=== PATIENT | male | born 1990 | race Caucasian/White ===

== ENCOUNTER 2019-02-15 11:39 | Emergency (ER) | payer BC, MEDICAID, OTHER ==
[~2019-02-15] VITALS: Ht 175.3 cm; Wt 77.1 kg
[~2019-02-15 11:39] MED LIST: BACL10TA PO; DIAZ10TA3 PO; HYDR-690 PO
--- OUTSIDE RECORDS SUMMARY | 2019-02-15 11:45 | XMS REPORT ---
Author Author TALHA FINNEGAN Organization [facility] Address [address] [place] [address] Care Team Providers Care Geometrician Name Role Phone TALHA FINNEGAN Unavailable PROBLEMS Type Condition ICD9-CM Code FKK65-CL Code Onset Dates Condition Status SNOMED Code Problem Anxiety F41.9 Active 28795261 Problem Mild persistent asthma without complication J45.30 Active 673154529 Problem Idiopathic chronic pancreatitis K86.1 Active 965640954 ALLERGIES No Information ENCOUNTERS Encounter Location Date Diagnosis [facility] [address] [address] Jul, [facility] [address] [address] Jul, [facility] [id number] [place] [address] Jul, [facility] [id number] [place] [address] Jul, Idiopathic chronic pancreatitis K86.1 [facility] [id number] [place] [address] Jul, [facility] [id number] [place] [address] Jun, [facility] [id number] [place] [address] Jun, Controlled substance agreement signed Z79.899 and Idiopathic chronic pancreatitis K86.1 [facility] [id number] [place] [address] Jun, Controlled substance agreement signed Z79.899 [facility] [address] [address] Jun, [facility] [address] [address] Jun, [facility] [address] [address] May, [facility] [address] [address] May, Idiopathic chronic pancreatitis K86.1 [facility] [address] [address] May, [facility] [address] [place] [address] May, [facility] [address] [place] [address] Apr, [facility] [address] [place] [address] Apr, [facility] [address] [address] Mar, [facility] [address] [place] [address] Mar, [facility] [id number] [address] Mar, Idiopathic chronic pancreatitis K86.1 ; Mild persistent asthma without complication J45.30 and Anxiety F41.9 [facility] [address] [place] [address] Jun, Encounter for immunization Z23 IMMUNIZATIONS No Known Immunizations SOCIAL HISTORY Never Assessed REASON FOR VISIT Controlled Med Refill 07/30 PLAN OF CARE VITAL SIGNS MEDICATIONS Medication Instructions Dosage Frequency Start Date End Date Duration Status Oxycodone HCl 10 mg Orally 3 times a day 1 tablet as needed Jul, 28 days Active RESULTS No Results PROCEDURES No Known procedures INSTRUCTIONS MEDICATIONS ADMINISTERED No Known Medications MEDICAL (GENERAL) HISTORY Type Description Date Medical History Asthma Medical History GI Spincter dysfunction Medical History Irritable Bowel Syndrome Medical History gilbert syndrome Medical History Chronic Nausea Medical History Chronic abdominal pain Medical History H-Pylori Medical History Chicken pox (in the past) Surgical History Galbladder 2009 Surgical History wisdom teeth 2012 Surgical History Several Colonoscopys Hospitalization History Pancreatitis 05/18/2018
--- OUTSIDE RECORDS SUMMARY | 2019-02-15 11:45 | XMS REPORT ---
Author Author TALHA FINNEGAN [facility] Address [address] [place] [address] Care Team Providers Care Cinder Crane Operator Name Role Phone TALHA FINNEGAN Unavailable PROBLEMS Type Condition ICD9-CM Code DGW51-TL Code Onset Dates Condition Status SNOMED Code Problem Controlled substance agreement signed Z79.899 Active 028276011 Problem Anxiety F41.9 Active 56287208 Problem Mild persistent asthma without complication J45.30 Active 511816897 ALLERGIES No Information ENCOUNTERS Encounter Location Date Diagnosis [place] [id number] [place] [address] Jul, Idiopathic chronic pancreatitis K86.1 and Controlled substance agreement signed Z79.899 [facility] [id number] [place] [address] Jul, [facility] [address] [address] Jul, [facility] [id number] [place] [address] Jul, Idiopathic chronic pancreatitis K86.1 [facility] [id number] [place] [address] Jul, [facility] [id number] [place] [address] Jun, [facility] [address] [address] Jun, Controlled substance agreement signed Z79.899 and Idiopathic chronic pancreatitis K86.1 [facility] [id number] [place] [address] Jun, Controlled substance agreement signed Z79.899 [facility] [address], [place] [address] Jun, [facility] [address], [place] [address] Jun, [facility] [address], [place] [address] May, [facility] [address], [place] [address] May, Idiopathic chronic pancreatitis K86.1 [facility] [address], [place] [address] May, [facility] [address], [place] [address] May, [facility] [address], [place] [address] Apr, [facility] [address], [place] [address] Apr, [facility] [address], [place] [address] Mar, [facility] [address], [place] [address] Mar, [facility] [id number] [address] Mar, Idiopathic chronic pancreatitis K86.1 ; Mild persistent asthma without complication J45.30 and Anxiety F41.9 [facility] [place] [address] [place] [address] 11 Jun, 2017 Encounter for immunization Z23 IMMUNIZATIONS No Known Immunizations SOCIAL HISTORY Never Assessed REASON FOR VISIT Prior Authorization Request PLAN OF CARE VITAL SIGNS MEDICATIONS Unknown Medications RESULTS No Results PROCEDURES No Known procedures INSTRUCTIONS MEDICATIONS ADMINISTERED No Known Medications MEDICAL (GENERAL) HISTORY Type Description Date Medical History Asthma Medical History GI Spincter dysfunction Medical History Irritable Bowel Syndrome Medical History gilbert syndrome Medical History Chronic Nausea Medical History Chronic abdominal pain Medical History H-Pylori Medical History Chicken pox (in the past) Surgical History Galbladder 2009 Surgical History wisdom teeth 2011 Surgical History Several Colonoscopys Hospitalization History Pancreatitis 05/18/2018
--- OUTSIDE RECORDS SUMMARY | 2019-02-15 11:45 | XMS REPORT ---
Author Author TALHA FINNEGAN [facility] Address [address] [place] [address] Care Team Providers Care Timber Cutter Name Role Phone TALHA FINNEGAN Unavailable PROBLEMS Type Condition ICD9-CM Code KVH82-DC Code Onset Dates Condition Status SNOMED Code Problem Controlled substance agreement signed Z79.899 Active 051344015 Problem Anxiety F41.9 Active 06850798 Problem Mild persistent asthma without complication J45.30 Active 825935297 ALLERGIES No Information ENCOUNTERS Encounter Location Date Diagnosis [facility] [id number] [place] [address] Aug, Idiopathic chronic pancreatitis K86.1 [facility] [id number] [place] [address] Aug, [facility] [id number] [place] [address] Jul, Idiopathic chronic pancreatitis K86.1 and Controlled substance agreement signed Z79.899 [facility] [id number] [place] [address] Jul, [facility] [id number] [place] [address] Jul, [facility] [id number] [place] [address] Jul, Idiopathic chronic pancreatitis K86.1 [facility] [id number] [place] [address] Jul, [facility] [id number] [place] [address] Jun, [facility] [id number] [place] [address] Jun, Controlled substance agreement signed Z79.899 and Idiopathic chronic pancreatitis K86.1 [facility] [address], [place] [address] 15 Jun, 2018 Controlled substance agreement signed Z79.899 [facility] [id number], [place] [address] Jun, [facility] [address], [place] [address] Jun, [facility] [address] [facility] [id number] [address] 14 May, 2018 [facility] [id number], [place] [address] 13 May, 2018 Idiopathic chronic pancreatitis K86.1 [facility] [address], [place] [address] 07 May, 2018 [facility] [address], [place] [address] May, [facility] [address], [place] [address] Apr, [facility] [address], [place] [address] Apr, [facility] [id number], [place] [address] Mar, [facility] [id number], [place] [address] Mar, [facility] [id number], [place] [address] Mar, Idiopathic chronic pancreatitis K86.1 ; Mild persistent asthma without complication J45.30 and Anxiety F41.9 [facility] [place] [address] [place] [address] 11 Jun, 2017 Encounter for immunization Z23 IMMUNIZATIONS No Known Immunizations SOCIAL HISTORY Never Assessed REASON FOR VISIT Controlled refill 12-10 PLAN OF CARE VITAL SIGNS MEDICATIONS Medication Instructions Dosage Frequency Start Date End Date Duration Status Oxycodone HCl 10 mg Orally 3 times a day 1 tablet as needed 8h Aug, 28 days Active RESULTS No Results PROCEDURES No Known procedures INSTRUCTIONS MEDICATIONS ADMINISTERED No Known Medications MEDICAL (GENERAL) HISTORY Type Description Date Medical History Asthma Medical History GI Spincter dysfunction Medical History Irritable Bowel Syndrome Medical History gilbert syndrome Medical History Chronic Nausea Medical History Chronic abdominal pain Medical History H-Pylori Medical History Chicken pox (in the past) Surgical History Galbladder 2008 Surgical History wisdom teeth 2011 Surgical History Several Colonoscopys Hospitalization History Pancreatitis 05/18/2018
--- OUTSIDE RECORDS SUMMARY | 2019-02-15 11:45 | XMS REPORT ---
Author Author TALHA FINNEGAN Organization [facility] Address [address] [place] [address] Care Team Providers Care Conveyor Technician Name Role Phone TALHA FINNEGAN Unavailable PROBLEMS Type Condition ICD9-CM Code AHL29-MA Code Onset Dates Condition Status SNOMED Code Problem Anxiety F41.9 Active 47886450 Problem Controlled substance agreement signed Z79.899 Active 925490987 Problem Mild persistent asthma without complication J45.30 Active 019338162 ALLERGIES No Information ENCOUNTERS Encounter Location Date Diagnosis [place] [address] [address] January, [facility] [address] [address] Nov, [facility] [id number] [place] [address] Nov, [facility] [id number] [place] [address] Nov, [facility] [id number] [place] [address] Nov, [address] [address] Nov, Pain of upper abdomen R10.10 and Otalgia of left ear H92.02 [facility] [id number] [place] [address] Nov, [facility] [place] [address] [place] [address] Nov, Idiopathic chronic pancreatitis K86.1 [facility] [id number] [place] [address] Oct, [facility] [id number], [place] [address] Oct, [facility] [address] [facility] [id number] [address] Oct, [facility] [address] [facility] [id number], [place] [address] Oct, [facility] [address], [place] [address] Sep, Idiopathic chronic pancreatitis K86.1 [facility] [address] [facility] [id number] [place] [address] Aug, Idiopathic chronic pancreatitis K86.1 [facility] [address], [place] [address] Aug, [facility] [address], [place] [address] Jul, Idiopathic chronic pancreatitis K86.1 and Controlled substance agreement signed Z79.899 [facility] [id number], [place] [address] Jul, [facility] [address], [place] [address] Jul, [facility] [id number], [place] [address] Jul, Idiopathic chronic pancreatitis K86.1 [facility] [id number], [place] [address] Jul, [facility] [id number], [place] [address] Jun, [facility] [id number], [place] [address] Jun, Controlled substance agreement signed Z79.899 and Idiopathic chronic pancreatitis K86.1 [facility] [id number], [place] [address] Jun, Controlled substance agreement signed Z79.899 [facility] [address] [place] [address] Jun, [facility] [id number] [place] [address] Jun, [facility] [id number] [place] [address] May, [facility] [id number] [place] [address] May, Idiopathic chronic pancreatitis K86.1 [facility] [id number] [place] [address] May, [facility] [id number] [place] [address] May, [facility] [id number] [place] [address] Apr, [facility] [id number] [place] [address] Apr, [facility] [id number] [place] [address] Mar, [facility] [id number] [place] [address] Mar, [facility] [id number] [place] [address] Mar, Idiopathic chronic pancreatitis K86.1 ; Mild persistent asthma without complication J45.30 and Anxiety F41.9 [facility] [place] [address] [place] [address] Jun, Encounter for immunization Z23 IMMUNIZATIONS No Known Immunizations SOCIAL HISTORY Never Assessed REASON FOR VISIT controlled refill request PLAN OF CARE VITAL SIGNS MEDICATIONS Medication Instructions Dosage Frequency Start Date End Date Duration Status Diazepam 10 mg Orally q 4-6 hr prn abd spasm 1 tab 14 days Active RESULTS No Results PROCEDURES No [...]
--- OUTSIDE RECORDS SUMMARY | 2019-02-15 11:45 | XMS REPORT ---
Author Author TALHA FINNEGAN [facility] Address [address] [place] [address] Care Team Providers Care Glove Former Name Role Phone TALHA FINNEGAN Unavailable PROBLEMS Type Condition ICD9-CM Code FMN34-LW Code Onset Dates Condition Status SNOMED Code Problem Controlled substance agreement signed Z79.899 Active 088940016 Problem Anxiety F41.9 Active 74111840 Problem Mild persistent asthma without complication J45.30 Active 035257279 ALLERGIES No Information ENCOUNTERS Encounter Location Date Diagnosis [place] [id number] [place] [address] Jul, Idiopathic chronic pancreatitis K86.1 and Controlled substance agreement signed Z79.899 [facility] [id number] [place] [address] Jul, [facility] [address] [address] Jul, [facility] [id number] [place] [address] Jul, Idiopathic chronic pancreatitis K86.1 [facility] [id number] [place] [address] Jul, [facility] [id number] [place] [address] Jun, [facility] [address] [address] Jun, Controlled substance agreement signed Z79.899 and Idiopathic chronic pancreatitis K86.1 [facility] [id number] [place] [address] Jun, Controlled substance agreement signed Z79.899 [facility] [address], [place] [address] Jun, [facility] [address], [place] [address] Jun, [facility] [address], [place] [address] May, [facility] [id number] [place] [address] May, Idiopathic chronic pancreatitis K86.1 [facility] [address], [place] [address] May, [facility] [id number] [place] [address] May, [facility] [id number] [place] [address] Apr, [facility] [id number] [place] [address] Apr, [facility] [address], [place] [address] Mar, [facility] [id number] [place] [address] Mar, [facility] [address], [place] [address] Mar, Idiopathic chronic pancreatitis K86.1 ; Mild persistent asthma without complication J45.30 and Anxiety F41.9 [facility] [place] [address] [place] [address] Jun, Encounter for immunization Z23 IMMUNIZATIONS No Known Immunizations SOCIAL HISTORY Never Assessed REASON FOR VISIT Pain management (chronic)- Alfonso CARRILLO, drug screen done in visit - Alfonso CARRILLO PLAN OF CARE Activity Details Follow Up 3 Months Reason: VITAL SIGNS Height 69 in 2018-08-16 Weight 174.4 lbs 2018-08-16 Temperature 97.7 degrees Fahrenheit 2018-08-16 Heart Rate 127 bpm 2018-08-16 Respiratory Rate 20 2018-08-16 BMI 25.75 kg/m2 2018-08-16 Blood pressure systolic 130 mmHg 2018-08-16 Blood pressure diastolic 84 mmHg 2018-08-16 MEDICATIONS Medication Instructions Dosage Frequency Start Date End Date Duration Status Diazepam 10 mg Orally q 4-6 hr prn abd spasm 1 tab 14 days Active Amitriptyline HCl 100 MG Active Ondansetron 4 MG Orally every 4-6 hours as needed 1 tablet on the tongue and allow to dissolve as needed 7 Active Oxycodone HCl 10 mg Orally 3 times a day 1 tablet as needed 8h 12 Jul, 2018 28 days Active Famotidine 10 MG Active Hyoscyamine Sulfate 0.125 MG/ML Active ProAir HFA 108 (90 Base) MCG/ACT Active Cetirizine HCl 10 MG 1 tablet Active Sucralfate 1 GM Orally 4 times a day 1 tablet 6h 90 days Active Ondansetron 8 MG Active Lomotil 2.5-0.025 MG Orally Four times a day 1 tablet as needed 6h Apr, Aug, 30 days Active Fentanyl 50 MCG/HR Transdermal Every 48 hr 1 patch Jul, Active Advair Diskus 250-50 MCG/DOSE Active Promethazine HCl Active RESULTS Name Result Date Reference Range URINE DRUG SCREEN (IN HOUSE) 2018-08-16 Lot # [id number] Exp date 11/2019 Control positive COCAINE neg AMPH neg MTD neg THC neg OPIATE neg BENZO positive PCP neg BAR neg OXY positive MAMP neg BUP neg MDMA neg TCA neg PROCEDURES Procedure Date Ordered Result Body Site DRUG TEST PRSMV DIR OPT OBS Aug 16, 2018 INSTRUCTIONS MEDICATIONS ADMINISTERED No Known Medications MEDICAL [...]
--- OUTSIDE RECORDS SUMMARY | 2019-02-15 11:45 | XMS REPORT ---
Author Author TALHA FINNEGAN [facility] Address [address] [place] [address] Care Team Providers Care Supervisor Microwave Name Role Phone TALHA FINNEGAN Unavailable PROBLEMS Type Condition ICD9-CM Code RMV14-BK Code Onset Dates Condition Status SNOMED Code Problem Controlled substance agreement signed Z79.899 Active 159348396 Problem Anxiety F41.9 Active 63397010 Problem Mild persistent asthma without complication J45.30 Active 406603620 ALLERGIES No Information ENCOUNTERS Encounter Location Date Diagnosis [facility] [id number] [place] [address] Aug, Idiopathic chronic pancreatitis K86.1 [facility] [id number] [place] [address] Aug, [facility] [id number] [place] [address] Jul, Idiopathic chronic pancreatitis K86.1 and Controlled substance agreement signed Z79.899 [facility] [id number] [place] [address] Jul, [facility] [id number] [place] [address] Jul, [facility] [id number] [place] [address] Jul, Idiopathic chronic pancreatitis K86.1 [facility] [id number] [place] [address] Jul, [facility] [id number] [place] [address] Jun, [facility] [id number] [place] [address] Jun, Controlled substance agreement signed Z79.899 and Idiopathic chronic pancreatitis K86.1 [facility] [address] [address] 15 Jun, 2018 Controlled substance agreement signed Z79.899 [facility] [id number] [address] Jun, [facility] [address] [address] Jun, [facility] [address] [facility] [id number] [address] 14 May, 2018 [facility] [address] [address] 13 May, 2018 Idiopathic chronic pancreatitis K86.1 [facility] [address] [address] 07 May, 2018 [facility] [address] [address] May, [facility] [address] [address] Apr, [facility] [address] [address] Apr, [facility] [id number] [address] Mar, [facility] [id number] [address] Mar, [facility] [id number] [address] Mar, Idiopathic chronic pancreatitis K86.1 ; Mild persistent asthma without complication J45.30 and Anxiety F41.9 [facility] [place] [address] [place] [address] 11 Jun, 2017 Encounter for immunization Z23 IMMUNIZATIONS No Known Immunizations SOCIAL HISTORY Never Assessed REASON FOR VISIT Controlled Med Refill 08/27 PLAN OF CARE VITAL SIGNS MEDICATIONS Medication Instructions Dosage Frequency Start Date End Date Duration Status Diazepam 10 mg Orally q 4-6 hr prn abd spasm 1 tab 14 days Active Fentanyl 50 MCG/HR Transdermal Every 48 hr 1 patch Aug, Active RESULTS No Results PROCEDURES No Known [...]
--- OUTSIDE RECORDS SUMMARY | 2019-02-15 11:46 | XMS REPORT ---
Author Author TALHA FINNEGAN Organization [facility] Address [address] [place] [address] Care Team Providers Care Sports Statistician Name Role Phone TALHA FINNEGAN Unavailable PROBLEMS Type Condition ICD9-CM Code LNR40-EG Code Onset Dates Condition Status SNOMED Code Problem Anxiety F41.9 Active 96107400 Problem Mild persistent asthma without complication J45.30 Active 425620267 Problem Idiopathic chronic pancreatitis K86.1 Active 989561417 ALLERGIES No Information ENCOUNTERS Encounter Location Date Diagnosis [facility] [id number] [place] [address] Jul, [facility] [address] [address] Jul, [facility] [id number] [place] [address] Jul, Idiopathic chronic pancreatitis K86.1 [facility] [id number] [place] [address] Jul, [facility] [id number] [place] [address] Jun, [facility] [id number] [place] [address] Jun, Controlled substance agreement signed Z79.899 and Idiopathic chronic pancreatitis K86.1 [facility] [id number] [place] [address] Jun, Controlled substance agreement signed Z79.899 [facility] [address] [place] [address] Jun, [facility] [id number] [place] [address] Jun, [facility] [id number] [address] 14 May, 2018 [facility] [address] [address] May, Idiopathic chronic pancreatitis K86.1 [facility] [address] [address] May, [facility] [address] [address] May, [facility] [address] [place] [address] Apr, [facility] [address] [place] [address] Apr, [facility] [address] [place] [address] Mar, [facility] [address] [address] Mar, [facility] [address] [address] Mar, Idiopathic chronic pancreatitis K86.1 ; Mild persistent asthma without complication J45.30 and Anxiety F41.9 [facility] [place] [address] [place] [address] Jun, Encounter for immunization Z23 IMMUNIZATIONS No Known Immunizations SOCIAL HISTORY Never Assessed REASON FOR VISIT Medication question PLAN OF CARE VITAL SIGNS MEDICATIONS Medication [...]
--- OUTSIDE RECORDS SUMMARY | 2019-02-15 11:46 | XMS REPORT ---
Author Author TALHA FINNEGAN Organization [facility] Address [address] [place] [address] Care Team Providers Care Attendant Honor Bar Name Role Phone TALHA FINNEGAN Unavailable PROBLEMS Type Condition ICD9-CM Code IOF37-VF Code Onset Dates Condition Status SNOMED Code Problem Anxiety F41.9 Active 35549470 Problem Mild persistent asthma without complication J45.30 Active 542426021 Problem Idiopathic chronic pancreatitis K86.1 Active 228664177 ALLERGIES No Information ENCOUNTERS Encounter Location Date Diagnosis [facility] [id number] [place] [address] Jul, [facility] [id number] [place] [address] Jul, [facility] [id number] [place] [address] Jun, [facility] [id number] [place] [address] Jun, Controlled substance agreement signed Z79.899 and Idiopathic chronic pancreatitis K86.1 [facility] [address] [place] [address] Jun, Controlled substance agreement signed Z79.899 [facility] [address] [place] [address] Jun, [facility] [id number] [place] [address] Jun, [facility] [id number] [place] [address] 14 May, 2018 [facility] [id number] [place] [address] May, Idiopathic chronic pancreatitis K86.1 [facility] [address] [facility] [id number] [address] May, [facility] [address] [facility] [id number] [address] May, [facility] [id number] [address] Apr, [facility] [id number] [address] Apr, [facility] [id number] [address] Mar, [facility] [id number] [address] Mar, [facility] [id number] [address] Mar, Idiopathic chronic pancreatitis K86.1 ; Mild persistent asthma without complication J45.30 and Anxiety F41.9 [facility] [place] [address] [place] [address] Jun, Encounter for immunization Z23 IMMUNIZATIONS No Known Immunizations SOCIAL HISTORY Never Assessed REASON FOR VISIT Controlled Med Refill PLAN OF CARE VITAL SIGNS MEDICATIONS Medication Instructions Dosage Frequency Start Date End Date Duration Status Fentanyl 50 MCG/HR Transdermal Every 48 hr 1 patch Jul, Active RESULTS No Results PROCEDURES No Known [...]
--- OUTSIDE RECORDS SUMMARY | 2019-02-15 11:46 | XMS REPORT ---
Author Author TALHA FINNEGAN [facility] Address [address] [place] [address] Care Team Providers Care Tacker Elastic Band Name Role Phone TALHA FINNEGAN Unavailable PROBLEMS Type Condition ICD9-CM Code EYE95-PE Code Onset Dates Condition Status SNOMED Code Problem Anxiety F41.9 Active 20350089 Problem Mild persistent asthma without complication J45.30 Active 054264912 Problem Idiopathic chronic pancreatitis K86.1 Active 940648510 ALLERGIES No Information ENCOUNTERS Encounter Location Date Diagnosis [facility] [id number] [place] [address] Jun, [facility] [id number] [place] [address] 14 May, 2018 [facility] [id number] [place] [address] 13 May, 2018 Idiopathic chronic pancreatitis K86.1 [facility] [id number] [place] [address] 07 May, 2018 [facility] [id number] [place] [address] May, [facility] [id number] [place] [address] Apr, [facility] [id number] [place] [address] Apr, [facility] [id number] [place] [address] Mar, [facility] [id number] [place] [address] Mar, [facility] [id number] [place] [address] Mar, Idiopathic chronic pancreatitis K86.1 ; Mild persistent asthma without complication J45.30 and Anxiety F41.9 [facility] [place] [address] [place] [address] Jun, Encounter for immunization Z23 IMMUNIZATIONS No Known Immunizations SOCIAL HISTORY Never Assessed REASON FOR VISIT Medication refill request PLAN OF CARE VITAL SIGNS MEDICATIONS Medication Instructions Dosage Frequency Start Date End Date Duration Status Fentanyl 50 MCG/HR Transdermal Every 48 hr 1 patch Apr, Active RESULTS No Results PROCEDURES No Known [...]
--- OUTSIDE RECORDS SUMMARY | 2019-02-15 11:46 | XMS REPORT ---
Author Author TALHA FINNEGAN [facility] Address [address] [place] [address] Care Team Providers Care Escrow Processor Name Role Phone TALHA FINNEGAN Unavailable PROBLEMS Type Condition ICD9-CM Code QNY19-CS Code Onset Dates Condition Status SNOMED Code Problem Anxiety F41.9 Active 25935883 Problem Mild persistent asthma without complication J45.30 Active 867628407 Problem Idiopathic chronic pancreatitis K86.1 Active 033264465 ALLERGIES No Information ENCOUNTERS Encounter Location Date Diagnosis [facility] [id number] [place] [address] Jun, [facility] [address] [address] Jun, [facility] [id number] [place] [address] 14 May, 2018 [facility] [id number] [place] [address] 13 May, 2018 Idiopathic chronic pancreatitis K86.1 [facility] [id number] [place] [address] May, [facility] [id number] [place] [address] May, [facility] [id number] [place] [address] Apr, [facility] [id number] [place] [address] Apr, [facility] [id number] [place] [address] Mar, [facility] [id number] [place] [address] Mar, [facility] [address] [facility] [id number] [place] [address] Mar, Idiopathic chronic pancreatitis K86.1 ; Mild persistent asthma without complication J45.30 and Anxiety F41.9 [facility] [place] [address] [place] [address] Jun, Encounter for immunization Z23 IMMUNIZATIONS No Known Immunizations SOCIAL HISTORY Never Assessed REASON FOR VISIT Controlled Med Refill PLAN OF CARE VITAL SIGNS MEDICATIONS Medication Instructions Dosage Frequency Start Date End Date Duration Status Fentanyl 50 MCG/HR Transdermal Every 48 hr 1 patch 04 Jun, 2018 Active RESULTS No Results PROCEDURES No Known [...]
--- OUTSIDE RECORDS SUMMARY | 2019-02-15 11:46 | XMS REPORT ---
Author Author TALHA FINNEGAN Organization [facility] Address [address] [place] [address] Care Team Providers Care Junior Mechanical Engineer Name Role Phone TALHA FINNEGAN Unavailable PROBLEMS Type Condition ICD9-CM Code ABP95-PW Code Onset Dates Condition Status SNOMED Code Problem Anxiety F41.9 Active 49294802 Problem Mild persistent asthma without complication J45.30 Active 500462700 Problem Idiopathic chronic pancreatitis K86.1 Active 445929149 ALLERGIES No Information ENCOUNTERS Encounter Location Date Diagnosis [place] [id number] [place] [address] 16 Jun, 2018 Controlled substance agreement signed Z79.899 and Idiopathic chronic pancreatitis K86.1 [facility] [id number] [place] [address] 15 Jun, 2018 Controlled substance agreement signed Z79.899 [facility] [id number] [place] [address] 12 Jun, 2018 [facility] [id number] [place] [address] 04 Jun, 2018 [facility] [id number] [place] [address] 14 May, 2018 [facility] [id number] [place] [address] 13 May, 2018 Idiopathic chronic pancreatitis K86.1 [facility] [id number] [place] [address] 07 May, 2018 [facility] [id number] [place] [address] 04 May, 2018 [facility] [id number] [place] [address] Apr, [facility] [address] [facility] [id number], [place] [address] Apr, [facility] [address] [facility] [id number], [place] [address] Mar, [facility] [address] [facility] [id number], [place] [address] Mar, [facility] [address] [facility] [id number], [place] [address] Mar, Idiopathic chronic pancreatitis K86.1 ; Mild persistent asthma without complication J45.30 and Anxiety F41.9 [facility] [address] [place] [address] Jun, Encounter for immunization Z23 IMMUNIZATIONS No Known Immunizations SOCIAL HISTORY Never Assessed REASON FOR VISIT Controlled Med Refill PLAN OF CARE VITAL SIGNS MEDICATIONS Medication Instructions Dosage Frequency Start Date End Date Duration Status Oxycodone HCl 10 mg Orally 3 times a day 1 tablet as needed 8h 15 Jun, 2018 28 days Active RESULTS No Results PROCEDURES [...]
--- OUTSIDE RECORDS SUMMARY | 2019-02-15 11:46 | XMS REPORT ---
Author Author TALHA FINNEGAN [facility] Address [address] [place] [address] Care Team Providers Care Snack Stewardess Name Role Phone TALHA FINNEGAN Unavailable PROBLEMS Type Condition ICD9-CM Code DHE99-TI Code Onset Dates Condition Status SNOMED Code Problem Anxiety F41.9 Active 43944751 Problem Mild persistent asthma without complication J45.30 Active 045111918 Problem Idiopathic chronic pancreatitis K86.1 Active 796114336 ALLERGIES No Information ENCOUNTERS Encounter Location Date Diagnosis [facility] [id number] [place] [address] Jun, [facility] [id number] [place] [address] 14 May, 2018 [facility] [id number] [place] [address] 13 May, 2018 Idiopathic chronic pancreatitis K86.1 [facility] [id number] [place] [address] 07 May, 2018 [facility] [id number] [place] [address] May, [facility] [id number] [place] [address] Apr, [facility] [id number] [place] [address] Apr, [facility] [id number] [place] [address] Mar, [facility] [id number] [place] [address] Mar, [facility] [id number] [place] [address] Mar, Idiopathic chronic pancreatitis K86.1 ; Mild persistent asthma without complication J45.30 and Anxiety F41.9 [facility] [place] [address] [place] [address] Jun, Encounter for immunization Z23 IMMUNIZATIONS No Known Immunizations SOCIAL HISTORY Never Assessed REASON FOR VISIT Controlled Med FYI PLAN OF CARE VITAL SIGNS MEDICATIONS Unknown [...]
--- OUTSIDE RECORDS SUMMARY | 2019-02-15 11:46 | XMS REPORT ---
Author Author TALHA FINNEGAN Organization [facility] Address [address] [place] [address] Care Team Providers Care Nursing Associate Name Role Phone TALHA FINNEGAN Unavailable PROBLEMS Type Condition ICD9-CM Code NDL47-FV Code Onset Dates Condition Status SNOMED Code Problem Anxiety F41.9 Active 70754464 Problem Mild persistent asthma without complication J45.30 Active 416402094 Problem Idiopathic chronic pancreatitis K86.1 Active 571594385 ALLERGIES No Information ENCOUNTERS Encounter Location Date Diagnosis [place] [id number] [place] [address] Jul, [facility] [id number] [place] [address] Jun, [facility] [id number] [place] [address] Jun, Controlled substance agreement signed Z79.899 and Idiopathic chronic pancreatitis K86.1 [place] [address] [place] [address] 15 Jun, 2018 Controlled substance agreement signed Z79.899 [place] [id number] [place] [address] Jun, [facility] [address] [place] [address] Jun, [place] [id number] [place] [address] 14 May, 2018 [facility] [id number] [place] [address] 13 May, 2018 Idiopathic chronic pancreatitis K86.1 [facility] [id number] [place] [address] May, [facility] [address] [facility] [id number] [place] [address] May, [facility] [id number], [place] [address] Apr, [facility] [id number] [address] Apr, [facility] [id number], [place] [address] Mar, [facility] [id number] [address] Mar, [facility] [id number] [address] Mar, Idiopathic chronic pancreatitis K86.1 ; Mild persistent asthma without complication J45.30 and Anxiety F41.9 [facility] [address] [place] [address] Jun, Encounter for immunization Z23 IMMUNIZATIONS No Known Immunizations SOCIAL HISTORY Never Assessed REASON FOR VISIT medication question PLAN OF CARE VITAL SIGNS MEDICATIONS Unknown [...]
--- OUTSIDE RECORDS SUMMARY | 2019-02-15 11:46 | XMS REPORT ---
Author Author TALHA FINNEGAN Organization [facility] Address [address] [place] [address] Care Team Providers Care Labor And Delivery Nurse Name Role Phone TALHA FINNEGAN Unavailable PROBLEMS Type Condition ICD9-CM Code [id number] Code Onset Dates Condition Status SNOMED Code Problem Anxiety F41.9 Active 80012780 Problem Mild persistent asthma without complication J45.30 Active 392039839 Problem Idiopathic chronic pancreatitis K86.1 Active 163429755 ALLERGIES No Information ENCOUNTERS Encounter Location Date Diagnosis [facility] [id number] [place] [phone] Jun, [facility] [id number] [place] [address] May, Idiopathic chronic pancreatitis K86.1 [facility] [id number] [place] [phone] May, [facility] [id number] [place] [phone] May, [facility] [id number] [place] [phone] Apr, [facility] [id number] [place] [phone] Apr, [facility] [id number] [place] [address] Mar, [facility] [id number] [place] [address] Mar, [facility] [id number] [place] [address] Mar, Idiopathic chronic pancreatitis K86.1 ; Mild persistent asthma without complication J45.30 and Anxiety F41.9 [facility] [place] [address] [place] [address] 11 Jun, 2017 Encounter for immunization Z23 IMMUNIZATIONS No Known Immunizations SOCIAL HISTORY Never Assessed REASON FOR VISIT Refill request PLAN OF CARE VITAL SIGNS MEDICATIONS Medication Instructions Dosage Frequency Start Date End Date Duration Status Ondansetron 4 MG Orally every 4-6 hours as needed 1 tablet on the tongue and allow to dissolve as needed 07 days Active Lomotil 2.5-0.025 MG Orally Four times a day 1 tablet as needed 6h Apr, Aug, 30 days Active RESULTS No Results PROCEDURES No [...]
--- OUTSIDE RECORDS SUMMARY | 2019-02-15 11:46 | XMS REPORT ---
Author Author TALHA FINNEGAN [facility] Address [address] [place] [address] Care Team Providers Care Ceiling Installer Name Role Phone TALHA FINNEGAN Unavailable PROBLEMS Type Condition ICD9-CM Code XIK16-MU Code Onset Dates Condition Status SNOMED Code Problem Anxiety F41.9 Active 32127066 Problem Mild persistent asthma without complication J45.30 Active 680650064 Problem Idiopathic chronic pancreatitis K86.1 Active 050761776 ALLERGIES No Information ENCOUNTERS Encounter Location Date Diagnosis [facility] [id number] [place] [phone] Jun, [facility] [id number] [place] [address] 14 May, 2018 [facility] [id number] [place] [phone] 13 May, 2018 Idiopathic chronic pancreatitis K86.1 [facility] [id number] [place] [phone] 07 May, 2018 [facility] [id number] [place] [phone] May, [facility] [id number] [place] [phone] Apr, [facility] [id number] [place] [phone] Apr, [facility] [id number] [place] [phone] Mar, [facility] [id number] [place] [phone] Mar, [facility] [id number] [place] [address] Mar, Idiopathic chronic pancreatitis K86.1 ; Mild persistent asthma without complication J45.30 and Anxiety F41.9 [facility] [place] [address] [place] [address] Jun, Encounter for immunization Z23 IMMUNIZATIONS No Known Immunizations SOCIAL HISTORY Never Assessed REASON FOR VISIT Controlled Med Refill 05/22 PLAN OF CARE VITAL SIGNS MEDICATIONS Medication Instructions Dosage Frequency Start Date End Date Duration Status Fentanyl 50 MCG/HR Transdermal Every 48 hr 1 patch May, Active Oxycodone-Acetaminophen 10-325 MG Orally 3 times a day 1 tablet as needed 8h May, Active RESULTS No Results PROCEDURES No Known [...]
--- OUTSIDE RECORDS SUMMARY | 2019-02-15 11:46 | XMS REPORT ---
Author Author TALHA FINNEGAN [facility] Address [address] [place] [address] Care Team Providers Care Pastrycook'S Assistant Name Role Phone TALHA FINNEGAN Unavailable PROBLEMS Type Condition ICD9-CM Code [id number] Code Onset Dates Condition Status SNOMED Code Problem Anxiety F41.9 Active 13466371 Problem Mild persistent asthma without complication J45.30 Active 399035469 Problem Idiopathic chronic pancreatitis K86.1 Active 453023901 ALLERGIES No Information ENCOUNTERS Encounter Location Date Diagnosis [facility] [id number] [place] [phone] Jun, [facility] [id number] [place] [phone] 14 May, 2018 [facility] [id number] [place] [address] 13 May, 2018 Idiopathic chronic pancreatitis K86.1 [facility] [id number] [place] [phone] 07 May, 2018 [facility] [id number] [place] [phone] May, [facility] [id number] [place] [phone] Apr, [facility] [id number] [place] [address] Apr, [facility] [id number] [place] [address] Mar, [facility] [id number] [place] [address] Mar, [facility] [id number] [place] [address] Mar, Idiopathic chronic pancreatitis K86.1 ; Mild persistent asthma without complication J45.30 and Anxiety F41.9 [facility] [address] [place] [address] Jun, Encounter for immunization Z23 IMMUNIZATIONS No Known Immunizations SOCIAL HISTORY Never Assessed REASON FOR VISIT refill request PLAN OF CARE VITAL SIGNS MEDICATIONS Medication Instructions Dosage Frequency Start Date End Date Duration Status Oxycodone-Acetaminophen 10-325 MG Orally 3 times a day 1 tablet as needed 8h Apr, Active RESULTS No Results PROCEDURES No [...]
--- OUTSIDE RECORDS SUMMARY | 2019-02-15 11:46 | XMS REPORT ---
Author Author TALHA FINNEGAN Organization [facility] Address [address] [place] [address] Care Team Providers Care Construction Cost Estimator Name Role Phone TALHA FINNEGAN Unavailable PROBLEMS Type Condition ICD9-CM Code HLQ68-QA Code Onset Dates Condition Status SNOMED Code Problem Anxiety F41.9 Active 01270924 Problem Mild persistent asthma without complication J45.30 Active 825163110 Problem Idiopathic chronic pancreatitis K86.1 Active 067228889 ALLERGIES Substance Reaction Event Type Date Status Compazine Unknown Drug Allergy May, Active ENCOUNTERS Encounter Location Date Diagnosis [facility] [id number] [place] [phone] Jun, [facility] [address] [place] [phone] 14 May, 2018 [facility] [id number] [place] [address] May, Idiopathic chronic pancreatitis K86.1 [facility] [id number] [address] May, [facility] [id number] [place] [phone] May, [facility] [id number] [place] [phone] Apr, [facility] [id number] [place] [phone] Apr, [facility] [id number] [place] [phone] Mar, [facility] [id number] [place] [address] Mar, [facility] [address] [facility] [id number] [place] [address] Mar, Idiopathic chronic pancreatitis K86.1 ; Mild persistent asthma without complication J45.30 and Anxiety F41.9 [facility] [address] [place] [address] Jun, Encounter for immunization Z23 IMMUNIZATIONS No Known Immunizations SOCIAL HISTORY Never Assessed REASON FOR VISIT Hospital f/u pancreatitis at [facility] in [facility]. NICKOLAS Carvalho PLAN OF CARE Activity Details Follow Up 3 Months Reason: VITAL SIGNS MEDICATIONS Medication Instructions Dosage Frequency Start Date End Date Duration Status Amitriptyline HCl 100 MG Active Ondansetron 4 MG Orally every 4-6 hours as needed 1 tablet on the tongue and allow to dissolve as needed 7 days Active ProAir HFA 108 (90 Base) MCG/ACT Active Famotidine 10 MG Active Advair Diskus 250-50 MCG/DOSE Active Promethazine HCl Active Diazepam 10 MG Orally q 4-6 hr prn abd spasm 1 tab Active Hyoscyamine Sulfate 0.125 MG/ML Active Fentanyl 50 MCG/HR Transdermal Every 48 hr 1 patch May, Active Oxycodone-Acetaminophen 10-325 MG Orally 3 times a day 1 tablet as needed 8h May, Active Sucralfate 1 GM Orally 4 times a day 1 tablet 6h 90 days Active Maalox Advanced Active Ondansetron 8 MG Active Lomotil 2.5-0.025 MG Orally Four times a day 1 tablet as needed 6h Apr, Aug, 30 days Active Cetirizine HCl 10 MG 1 tablet Active Duloxetine HCl 60 mg Orally Once a day 1 capsule 24h Active RESULTS No Results PROCEDURES No Known [...]
--- OUTSIDE RECORDS SUMMARY | 2019-02-15 11:46 | XMS REPORT ---
Author Author TALHA FINNEGAN [facility] Address [address] [place] [address] Care Team Providers Care Hydrodynamicist Name Role Phone TALHA FINNEGAN Unavailable PROBLEMS Type Condition ICD9-CM Code [id number] Code Onset Dates Condition Status SNOMED Code Problem Anxiety F41.9 Active 91653148 Problem Mild persistent asthma without complication J45.30 Active 632640140 Problem Idiopathic chronic pancreatitis K86.1 Active 889711487 ALLERGIES No Information ENCOUNTERS Encounter Location Date Diagnosis [facility] [id number] [place] [phone] Jun, [facility] [id number] [place] [address] 14 May, 2018 [facility] [id number] [place] [address] 13 May, 2018 Idiopathic chronic pancreatitis K86.1 [facility] [id number] [place] [address] 07 May, 2018 [facility] [id number] [place] [phone] May, [facility] [id number] [place] [address] Apr, [facility] [id number] [place] [phone] Apr, [facility] [id number] [place] [address] Mar, [facility] [id number] [place] [address] Mar, [facility] [id number] [place] [address] Mar, Idiopathic chronic pancreatitis K86.1 ; Mild persistent asthma without complication J45.30 and Anxiety F41.9 [facility] [place] [address] [place] [address] Jun, Encounter for immunization Z23 IMMUNIZATIONS No Known Immunizations SOCIAL HISTORY Never Assessed REASON FOR VISIT Controlled Med Refill 06/01 PLAN OF CARE VITAL SIGNS MEDICATIONS Medication Instructions Dosage Frequency Start Date End Date Duration Status Oxycodone HCl 10 mg Orally 3 times a day 1 tablet as needed 8h May, Jun, 28 days Active RESULTS No Results PROCEDURES [...]
--- OUTSIDE RECORDS SUMMARY | 2019-02-15 11:47 | XMS REPORT ---
Author Author TALHA FINNEGAN [facility] Address [address] [place] [address] Care Team Providers Care Livestock Handler Name Role Phone TALHA FINNEGAN Unavailable PROBLEMS Type Condition ICD9-CM Code DIP05-PK Code Onset Dates Condition Status SNOMED Code Problem Anxiety F41.9 Active 23149729 Problem Mild persistent asthma without complication J45.30 Active 704274123 Problem Idiopathic chronic pancreatitis K86.1 Active 246453731 ALLERGIES Substance Reaction Event Type Date Status Compazine Unknown Drug Allergy Mar, Active ENCOUNTERS Encounter Location Date Diagnosis [facility] [id number] [place] [address] May, [facility] [id number] [place] [address] May, [facility] [id number] [place] [address] May, [facility] [id number] [place] [address] Apr, [facility] [id number] [place] [address] Apr, [facility] [id number] [place] [address] Mar, [facility] [id number] [place] [address] Mar, [facility] [id number] [place] [address] Mar, Idiopathic chronic pancreatitis K86.1 ; Mild persistent asthma without complication J45.30 and Anxiety F41.9 [facility] [address] [place] [address] Jun, Encounter for immunization Z23 IMMUNIZATIONS No Known Immunizations SOCIAL HISTORY Never Assessed REASON FOR VISIT Establish Care, PT would like to discuss all of his chronic health problems. PTs primary was previously Dr. Castillo in [place]. -Kenn CARRILLO , PHQ2, AUDIT C, P Adriana Jones PLAN OF CARE Activity Details Follow Up 4 Weeks Reason: VITAL SIGNS Height 69 in 2018-04-09 Weight 168.6 lbs 2018-04-09 Temperature 98.4 degrees Fahrenheit 2018-04-09 Heart Rate 111 bpm 2018-04-09 Respiratory Rate 20 2018-04-09 Oximetry 97 % 2018-04-09 BMI 24.90 kg/m2 2018-04-09 Blood pressure systolic 150 mmHg 2018-04-09 Blood pressure diastolic 90 mmHg 2018-04-09 MEDICATIONS Medication Instructions Dosage Frequency Start Date End Date Duration Status Famotidine 10 MG Active Amitriptyline HCl 50 MG Active Fentanyl 50 MCG/HR Active Diphenoxylate-Atropine 2.5-0.025 MG/5ML Active Vancocin HCl 250 MG Active Cymbalta 30 MG Active Advair Diskus 250-50 MCG/DOSE Active Diazepam 5 mg Orally 3 times a day 1 tab 8h Active ProAir HFA 108 (90 Base) MCG/ACT Active Promethazine HCl Active Hyoscyamine Sulfate 0.125 MG/ML Active Ondansetron 4 MG Active Maalox Advanced Active Alprazolam 0.5 MG 1 tablet Active Nulytely Active Duloxetine HCl 60 MG Active Cetirizine HCl 10 MG 1 tablet Active Sucralfate 1 GM Active Ondansetron 8 MG Active Amitriptyline HCl 100 MG Active Oxycodone-Acetaminophen 10-325 MG Active RESULTS No Results PROCEDURES No Known [...]
--- OUTSIDE RECORDS SUMMARY | 2019-02-15 11:47 | XMS REPORT ---
Author Author TALHA FINNEGAN [facility] Address [address] [place] [address] Care Team Providers Care Supervisor [employer] Name Role Phone TALHA FINNEGAN Unavailable PROBLEMS Type Condition ICD9-CM Code TNT35-TR Code Onset Dates Condition Status SNOMED Code Problem Anxiety F41.9 Active 77973726 Problem Mild persistent asthma without complication J45.30 Active 442520119 Problem Idiopathic chronic pancreatitis K86.1 Active 552807217 ALLERGIES No Information ENCOUNTERS Encounter Location Date Diagnosis [facility] [id number] [place] [phone] May, [facility] [address] [address] May, [facility] [id number] [place] [phone] May, [facility] [id number] [place] [phone] Apr, [facility] [id number] [place] [phone] Apr, [facility] [id number] [place] [phone] Mar, [facility] [id number] [place] [phone] Mar, [facility] [address] [address] Mar, Idiopathic chronic pancreatitis K86.1 ; Mild persistent asthma without complication J45.30 and Anxiety F41.9 [facility] [address] [place] [address] Jun, Encounter for immunization Z23 IMMUNIZATIONS No [...]
--- OUTSIDE RECORDS SUMMARY | 2019-02-15 11:47 | XMS REPORT ---
Author Author LISSETT ABREU [facility] Address [address] [place] [address] Care Team Providers Care Assistant Plant Control Operator Name Role Phone LISSETT ABREU Unavailable PROBLEMS Unknown Problems ALLERGIES No Information ENCOUNTERS Encounter Location Date Diagnosis [facility] [id number] [place] [id number] Jun, Encounter for immunization Z23 IMMUNIZATIONS No Known Immunizations SOCIAL HISTORY Never Assessed REASON FOR VISIT flu shot, Ela Duarte RN PLAN OF CARE Activity Details Follow Up prn Reason: VITAL SIGNS MEDICATIONS Unknown Medications RESULTS No Results PROCEDURES No Known procedures INSTRUCTIONS MEDICATIONS ADMINISTERED No Known Medications
[2019-02-15] MEDS ORDERED: HYDROmorphone 2 MG/ML VIAL (DILAUDID) IV ONE (12:30)
[2019-02-15] MEDS ORDERED: HALOPERIDOL 5 MG/ML (HALDOL) AMP IV ONE (12:45)
[2019-02-15] MEDS: NS IV 1000 ML 1,000 ML IV SCH ×4 (12:48→15:47)
--- NOTE | 2019-02-15 13:11 | ED Abdominal Pain ---
General Chief Complaint: Abdominal/GI Problems Stated Complaint: N&V; ABD PAIN Nursing Triage Note: Patient brought in by EMS with severe abdominal pain, nausea, and vomiting x 1 hour. Has hx of chronic pancreatitis and sphicter of Oddi dysfunction. His GI doctor is Dr Burris at . Had 10 mg morphine, 8 of zofran, and 50 mg of benadryl en route. BS was 153 for EMS. Patient is currently rating pain at 8/10. Has 50 mcg fentanyl patch on for chronic back pain. Denies alcohol or drug use. Sepsis Screen: No Definite Risk Source of Information: Patient, Family Exam Limitations: No Limitations History of Present Illness Date Seen by Provider: February 15, 2019 Time Seen by Provider: 12:15 Initial Comments This is a 28 y/o m who presents to the ED for evaluation of abdominal pain. Pt with history of chronic abdominal pain 2/2 chronic pancreatitis of unknown etiology for the past 5 years. Follows with GI at . No clear pathology of chronic pain. Is on Fentanyl patches, Oxycodone and Valium chronically for pain control. Here with increased pain for the past 2 days and intractable vomiting for the past few hours. No fever, ABD is typical, no GI bleed symptoms. Has h/o Gilbert syndrome and has chronically elevated T. Bili. S/p cholecystectomy. Pain is constant, 10/10, sharp, no aggravating/alleviating factors. Reports chronic diarrhea. Allergies and Home Medications Allergies Coded Allergies: citalopram hydrobromide (Unverified Allergy, Unknown, NAUSEA, 02/15/19) dicyclomine (Verified Allergy, Unknown, nausea and vomiting, 02/15/19) paroxetine (Verified Allergy, Unknown, nausea and vomiting, 02/15/19) prochlorperazine (Verified Allergy, Unknown, muscle pain, 02/15/19) Home Medications Baclofen 10 Mg Tablet, 1 EACH PO QID PRN, (Reported) Diazepam 10 Mg Tablet, 1 EACH PO QID, (Reported) Hydrocodone Bit/Ibuprofen 1 Tab Tablet, 1-2 EACH PO Q4H PRN, (Reported) Patient Home Medication List Home Medication List Reviewed: Yes Review of Systems Review of Systems Constitutional: No chills, No fever, No weakness EENTM: No Symptoms Reported Respiratory: Denies Cough, Denies Shortness of Air, Denies Stridor, Denies Wheezing Cardiovascular: Denies Chest Pain, Denies Palpitations, Denies Syncope Gastrointestinal: Abdominal Pain; Denies Constipated; Diarrhea, Nausea, Vomiting Genitourinary: No Symptoms Reported Musculoskeletal: No back pain, No joint pain Skin: No pruritus, No rash Psychiatric/Neurological: No Symptoms Reported Endocrine: No Symptoms Reported All Other Systems Reviewed Negative Unless Noted: Yes Past Pyibolv-Qtoced-Hpztow Hx Patient Social History Alcohol Use: Denies Use Recreational Drug Use: No 2nd Hand Smoke Exposure: No Recent Foreign Travel: No Contact w/Someone Who Travel: No Recent Infectious Disease Expo: No Recent Hopitalizations: No Physical Abuse: No Sexual Abuse: No Mistreated: No Fear: No Seasonal Allergies Seasonal Allergies: No Past Medical History Gallbladder Respiratory: Yes Asthma Cardiac: No Neurological: No Reproductive Disorders: No Genitourinary: No Gastrointestinal: Yes (IRRITABLE BOWEL; N/V; chronic pancreatitis; sphincter of Oddi dysfunction; ) Musculoskeletal: Yes Chronic Back Pain Endocrine: No HEENT: No Cancer: No Psychosocial: No Integumentary: No Blood Disorders: No Physical Exam Vital Signs Vital Signs - First Documented 02/15/19 11:40 Temp 96.4 Pulse 79 Resp 22 B/P (MAP) 138/72 (94) Pulse Ox 100 Capillary Refill : Less Than 3 Seconds Height/Weight/BMI Height: 5'9.00" Weight: 170lbs. oz. 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, no motor/sensory deficits, alert, normal mood/affect, oriented x 3 Skin: warm/dry, pallor Progress/Results/Core Measures Results/Orders Lab Results Laboratory Tests Test 02/15/19 13:09 Range/Units White Blood Count 19.2 H 4.3-11.0 10^3/uL Red Blood Count 4.86 4.35-5.85 10^6/uL Hemoglobin 14.8 13.3-17.7 G/DL Hematocrit 43 40-54 % Mean Corpuscular Volume 88 80-99 FL Mean Corpuscular Hemoglobin 30 25-34 PG Mean Corpuscular Hemoglobin Concent 35 32-36 G/DL Red Cell Distribution Width 13.1 10.0-14.5 % Platelet Count 251 130-400 10^3/uL Mean Platelet Volume 10.8 H 7.4-10.4 FL Neutrophils (%) (Auto) 90 H 42-75 % Lymphocytes (%) (Auto) 5 L 12-44 % Monocytes (%) (Auto) 5 0-12 % Eosinophils (%) (Auto) 0 0-10 % Basophils (%) (Auto) 0 0-10 % Neutrophils # (Auto) 17.3 H 1.8-7.8 X 10^3 Lymphocytes # (Auto) 1.0 1.0-4.0 X 10^3 Monocytes # (Auto) 0.9 0.0-1.0 X 10^3 Eosinophils # (Auto) 0.1 0.0-0.3 10^3/uL Basophils # (Auto) 0.0 0.0-0.1 10^3/uL Neutrophils % (Manual) 93 % Lymphocytes % (Manual) 2 % Monocytes % (Manual) 4 % Eosinophils % (Manual) 0 % Basophils % (Manual) 0 % Band Neutrophils 1 % Sodium Level 138 135-145 MMOL/L Potassium Level 3.8 3.6-5.0 MMOL/L Chloride Level 99 98-107 MMOL/L Carbon Dioxide Level 28 21-32 MMOL/L Anion Gap 11 5-14 MMOL/L Blood Urea Nitrogen 18 7-18 MG/DL Creatinine 0.97 0.60-1.30 MG/DL Estimat Glomerular Filtration Rate > 60 BUN/Creatinine Ratio 19 Glucose Level 214 H 70-105 MG/DL Calcium Level 9.2 8.5-10.1 MG/DL Corrected Calcium 8.5-10.1 MG/DL Total Bilirubin 1.0 0.1-1.0 MG/DL Aspartate Amino Transf (AST/SGOT) 22 5-34 U/L Alanine Aminotransferase (ALT/SGPT) 15 0-55 U/L Alkaline Phosphatase 81 40-136 U/L Total Protein 7.2 6.4-8.2 GM/DL Albumin 4.6 H 3.2-4.5 GM/DL Lipase 57 8-78 U/L My Orders Orders - ANNI BARRETT DO Hydromorphone Injection (Dilaudid Inject (02/15/19 12:30) Cbc And Manual Diff (02/15/19 12:19) Comprehensive Metabolic Panel (02/15/19 12:19) Lipase (02/15/19 12:19) Ekg Tracing (02/15/19 12:19) Haloperidol Injection (Haldol Injectio (02/15/19 12:45) Ns Iv 1000 Ml (Sodium Chloride 0.9%) (02/15/19 12:45) Diazepam Injection (Valium Injection) (02/15/19 14:15) Diazepam Tablet (Valium Tablet) (02/15/19 14:30) Medications Given in ED Current Medications Medications Dose Ordered Sig/Ladonna Route Start Time Stop Time Status Last Admin Dose Admin Diazepam 10 mg ONCE ONCE PO 02/15/19 14:30 02/15/19 14:31 DC 02/15/19 14:24 10 MG Haloperidol Lactate 5 mg ONCE ONCE IV 02/15/19 12:45 02/15/19 12:46 DC 02/15/19 12:48 5 MG Hydromorphone HCl 0.5 mg ONCE ONCE IV 02/15/19 12:30 02/15/19 12:31 DC 02/15/19 12:48 0.5 MG Vital Signs/I&O 02/15/19 11:40 Temp 96.4 Pulse 79 Resp 22 B/P (MAP) 138/72 (94) Pulse Ox 100 Blood Pressure Mean: 94 Progress Progress Note : Time: 15:00 Progress Note Symptoms improved but controlled enough for discharge. Elevated WBC and Glucose. Will require hospitalization for pain/symptom control. Pt is non-toxic appear ing, does not have a "surgical/acute ABD". Will allow receiving hospital to decide if they want to do imaging. Will transfer to [facility] per pt's request 2/2 continuity of care. Accepted by Dr. Yepez. Has been hemodynamically stable in the ED. Awaiting transfer. Departure Impression Primary Impression: Nausea and vomiting Additional Impressions: Pancreatitis Abdominal pain Dehydration Disposition: XFER SHT-TRM HOSP Condition: Stable Transfer Time Spoke to Accepting Phy: 15:00 ANNI BARRETT DO February 15, 2019 13:11
[2019-02-15 13:21] LABS: HEMATOCRIT 43 % (40-54); HEMOGLOBIN 14.8 G/DL (13.3-17.7); MEAN CORPUSCULAR HEMOGLOBIN 30 PG (25-34); MEAN CORPUSCULAR VOLUME 88 FL (80-99); WHITE BLOOD COUNT 19.2 10^3/uL (4.3-11.0)
[2019-02-15 13:22] LABS: BASOPHILS % (AUTO) 0 % (0-10); EOSINOPHILS % (AUTO) 0 % (0-10); LYMPHOCYTES % (AUTO) 5 % (12-44); MEAN CORPUSCULAR HGB CONC 35 G/DL (32-36); MEAN PLATELET VOLUME 10.8 FL (7.4-10.4); MONOCYTES % (AUTO) 5 % (0-12); NEUTROPHILS # (AUTO) 17.3 X 10^3 (1.8-7.8); NEUTROPHILS % (AUTO) 90 % (42-75); PLATELET COUNT 251 10^3/uL (130-400); RED CELL DISTRIBUTION WIDTH 13.1 % (10.0-14.5)
[2019-02-15 13:23] LABS: EOSINOPHILS # (AUTO) 0.1 10^3/uL (0.0-0.3); MONOCYTES # (AUTO) 0.9 X 10^3 (0.0-1.0)
[2019-02-15 13:37] LABS: BAND NEUTROPHILS 1 %; BASOPHILS % (MANUAL) 0 %; EOSINOPHILS % (MANUAL) 0 %; LYMPHOCYTES % (MANUAL) 2 %; MONOCYTES % (MANUAL) 4 %; NEUTROPHILS % (MANUAL) 93 %
[2019-02-15 13:39] LABS: SODIUM 138 MMOL/L (135-145)
[2019-02-15 13:40] LABS: ALANINE AMINOTRANSFERASE 15 U/L (0-55); ALBUMIN 4.6 GM/DL (3.2-4.5); ALKALINE PHOSPHATASE 81 U/L (40-136); BUN/CREATININE RATIO 19; CALCIUM 9.2 MG/DL (8.5-10.1); CARBON DIOXIDE 28 MMOL/L (21-32); CHLORIDE 99 MMOL/L (98-107); CREATININE SERUM 0.97 MG/DL (0.60-1.30); GFR ESTIMATED > 60; GLUCOSE 214 MG/DL (70-105); LIPASE 57 U/L (8-78); POTASSIUM 3.8 MMOL/L (3.6-5.0); TOTAL PROTEIN 7.2 GM/DL (6.4-8.2)
[2019-02-15] MEDS ORDERED: DIAZEPAM INJ 10 MG/2 ML (VALIUM) SYR IVP ONE (14:15)
[2019-02-15] MEDS ORDERED: DIAZEPAM 5 MG (VALIUM) TABLET PO ONE (14:30)
[2019-02-15] MEDS ORDERED: PROMETHAZINE INJ 25 MG/ML (PHENERGAN) AMP IVP ONE (16:15)
[2019-02-15] MEDS ORDERED: NS IV 1000 ML 1,000 ML IV SCH (16:45)
--- NOTE | 2019-02-15 17:09 | NUR ---
[facility] has accepted patient transfer to .
[2019-02-15 17:10] VITALS: BP 131/74
--- NOTE | 2019-02-15 17:27 | NUR ---
Patient transferred at this time to [facility] via [facility].
== END 2019-02-15 17:27 | disposition short-term general hospital (02) ==
LOC: EDUNIT# 11:39 → ER FS 11:41
DX: K85.90 Acute pancreatitis without necrosis or infection, unspecified (principal); E86.0 Dehydration; K58.9 Irritable bowel syndrome, unspecified; Z87.19 Personal history of other diseases of the digestive system; Z88.8 Allergy status to other drugs, medicaments and biological substances; Z90.49 Acquired absence of other specified parts of digestive tract
CPT/HCPCS: 36415; 80053; 83690; 85007; 85027; 93005; 96374; 96375

== ENCOUNTER 2019-02-25 10:41 | Emergency (ER) | payer MEDICAID ==
[~2019-02-25] VITALS: Ht 175.3 cm; Wt 77.1 kg
--- OUTSIDE RECORDS SUMMARY | 2019-02-25 10:49 | XMS REPORT | Continuity of Care Document ---
Author Organization Unknown Address Unknown Allergies There is no data. Medications There is no data. Problems There is no data. Procedures There is no data. Results Test Result Range PDM - 09 PANEL (PROFILE 1) - 07/03/18 10:51 Prescribed Drug 1 Fentanyl NRG Creatinine 144.1 mg/dL > or=20.0 pH 7.41 4.5 - 9.0 Oxidant NEGATIVE mcg/mL <200 Amphetamines NEGATIVE ng/mL <500 medMATCH Amphetamines CONSISTENT NRG Benzodiazepines POSITIVE ng/mL <100 Marijuana Metabolite POSITIVE ng/mL <20 Cocaine Metabolite NEGATIVE ng/mL <150 medMATCH Cocaine Metab CONSISTENT NRG Opiates POSITIVE ng/mL <100 Oxycodone NEGATIVE ng/mL <100 medMATCH Oxycodone INCONSISTENT NRG COMMENT NRG Alphahydroxyalprazolam NEGATIVE ng/mL <25 medMATCH aOH alprazolam CONSISTENT NRG Alphahydroxymidazolam NEGATIVE ng/mL <50 medMATCH aOH midazolam CONSISTENT NRG Alphahydroxytriazolam NEGATIVE ng/mL <50 medMATCH aOH triazolam CONSISTENT NRG Aminoclonazepam NEGATIVE ng/mL <25 medMATCH Aminoclonazepam CONSISTENT NRG Hydroxyethylflurazepam NEGATIVE ng/mL <50 medMATCH OH,Et flurazepam CONSISTENT NRG Lorazepam NEGATIVE ng/mL <50 medMATCH Lorazepam CONSISTENT NRG Nordiazepam 861 ng/mL <50 medMATCH Nordiazepam INCONSISTENT NRG Oxazepam >1000 ng/mL <50 medMATCH Oxazepam INCONSISTENT NRG Temazepam >1000 ng/mL <50 medMATCH Temazepam INCONSISTENT NRG Codeine NEGATIVE ng/mL <50 medMATCH Codeine CONSISTENT NRG Hydrocodone NEGATIVE ng/mL <50 medMATCH Hydrocodone CONSISTENT NRG Hydromorphone 50 ng/mL <50 medMATCH Hydromorphone INCONSISTENT NRG Morphine NEGATIVE ng/mL <50 medMATCH Morphine CONSISTENT NRG Norhydrocodone 99 ng/mL <50 medMATCH Norhydrocodone INCONSISTENT NRG Prescribed Drug 2 Oxycodone NRG Marijuana Metabolite 25 ng/mL <5 medMATCH Marijuana Metab INCONSISTENT NRG Barbiturates NEGATIVE ng/mL <300 medMATCH Barbiturates CONSISTENT NRG Methadone Metabolite NEGATIVE ng/mL <100 medMATCH Methadone Metab CONSISTENT NRG Phencyclidine NEGATIVE ng/mL <25 medMATCH Phencyclidine CONSISTENT NRG LIPASE - 12/05/18 14:20 LIPASE 91 U/L 7-60 LIPASE - 01/10/19 08:36 LIPASE 32 U/L 7-60 Encounters ACCT No. Visit Date/Time Discharge Status Pt. Type Provider Facility Loc./Unit Complaint [id number] 01/30/2019 14:40:00 01/30/2019 23:59:59 [facility] Outpatient SHARA REDDY [facility] [id number] 01/10/2019 08:30:00 Document Registration [id number] 12/05/2018 13:20:00 Document Registration [id number] 07/03/2018 11:20:00 Document Registration
[2019-02-25] MEDS ORDERED: fentaNYL INJECTION 100 MCG/2 ML AMP IVP STA ×2 (11:02→13:27)
[2019-02-25] MEDS ORDERED: NS IV 1000 ML 1,000 ML IV STA (11:02)
[2019-02-25] MEDS ORDERED: ONDANSETRON 4 MG/2 ML (SDV) Z0FRAN IVP ONE ×2 (11:15→17:00)
[2019-02-25 11:38] LABS: HEMATOCRIT 43 % (40-54); HEMOGLOBIN 15.2 G/DL (13.3-17.7); MEAN CORPUSCULAR HEMOGLOBIN 31 PG (25-34); MEAN CORPUSCULAR VOLUME 87 FL (80-99); WHITE BLOOD COUNT 27.2 10^3/uL (4.3-11.0)
[2019-02-25 11:39] LABS: BASOPHILS # (AUTO) 0.1 10^3/uL (0.0-0.1); BASOPHILS % (AUTO) 0 % (0-10); EOSINOPHILS # (AUTO) 0.4 10^3/uL (0.0-0.3); EOSINOPHILS % (AUTO) 1 % (0-10); LYMPHOCYTES # (AUTO) 2.3 X 10^3 (1.0-4.0); LYMPHOCYTES % (AUTO) 9 % (12-44); MEAN CORPUSCULAR HGB CONC 35 G/DL (32-36); MEAN PLATELET VOLUME 11.2 FL (7.4-10.4); MONOCYTES # (AUTO) 1.1 X 10^3 (0.0-1.0); MONOCYTES % (AUTO) 4 % (0-12); NEUTROPHILS # (AUTO) 23.3 X 10^3 (1.8-7.8); NEUTROPHILS % (AUTO) 86 % (42-75); PLATELET COUNT 299 10^3/uL (130-400); RED CELL DISTRIBUTION WIDTH 12.6 % (10.0-14.5)
--- NOTE | 2019-02-25 11:41 | ED Abdominal Pain ---
General Chief Complaint: Abdominal/GI Problems Stated Complaint: VOMITING & NAUSEA Nursing Triage Note: Patient c/o right upper quadrant abdominal pain, nausea, and vomiting. States it started at 0830 this morning and he has been unable to stop vomiting. Sepsis Screen: No Definite Risk Source of Information: Patient Exam Limitations: No Limitations History of Present Illness Date Seen by Provider: Feb 25, 2019 Time Seen by Provider: 11:15 Initial Comments Here with report of right upper quadrant abdominal pain and intractable nausea and vomiting that started at 8:30 this morning. Currently being treated for C. difficile infection. Still has diarrhea. He is supposed to be taking oral vancomycin and has not been unable to do that at all today. Does have on standing history of chronic right upper quadrant abdominal pain as well as pancreatitis. He has been doing better recently and was just at [facility] for treatment for his C. difficile colitis. He was sent home on oral vancomycin with the hope that that would work. He has been unable to take his medications today. Timing/Duration: 4-6 Hours Severity/Quality: Moderate, Severe Location: RUQ Radiation: LUQ, RLQ, LLQ Activities at Onset: None Modifying Factors: Worsens With Eating, Worsens With Movement Associated Symptoms: No Back Pain, No Chest Pain; Diaphoresis; No Fever/Chills; Nausea/Vomiting; No Shortness of Air; Weakness Allergies and Home Medications Allergies Coded Allergies: citalopram hydrobromide (Unverified Allergy, Unknown, NAUSEA, 02/15/19) dicyclomine (Verified Allergy, Unknown, nausea and vomiting, 02/15/19) paroxetine (Verified Allergy, Unknown, nausea and vomiting, 02/15/19) prochlorperazine (Verified Allergy, Unknown, muscle pain, 02/15/19) Home Medications Baclofen 10 Mg Tablet, 1 EACH PO QID PRN, (Reported) Diazepam 10 Mg Tablet, 1 EACH PO QID, (Reported) Hydrocodone Bit/Ibuprofen 1 Tab Tablet, 1-2 EACH PO Q4H PRN, (Reported) Patient Home Medication List Home Medication List Reviewed: Yes Review of Systems Review of Systems Constitutional: see HPI; No chills; diaphoresis; No fever EENTM: No Symptoms Reported Respiratory: No Symptoms Reported Cardiovascular: No Symptoms Reported Gastrointestinal: Abdominal Pain, Diarrhea, Nausea, Vomiting Genitourinary: No Symptoms Reported Musculoskeletal: No joint pain; muscle pain Skin: no symptoms reported Psychiatric/Neurological: No Symptoms Reported All Other Systems Reviewed Negative Unless Noted: Yes Past Czwhybc-Mhqwsa-Xjinbg Hx Past Med/Social Hx: Reviewed Nursing Past Med/Soc Hx Patient Social History Alcohol Use: Denies Use Recreational Drug Use: No Smoking Status: Never a Smoker 2nd Hand Smoke Exposure: No Recent Foreign Travel: No Contact w/Someone Who Travel: No Recent Infectious Disease Expo: No Recent Hopitalizations: No Physical Abuse: No Sexual Abuse: No Mistreated: No Fear: No Seasonal Allergies Seasonal Allergies: No Past Medical History Surgeries: Yes Gallbladder Respiratory: Yes Asthma Cardiac: No Neurological: No Reproductive Disorders: No Genitourinary: No Gastrointestinal: Yes (IRRITABLE BOWEL; N/V; chronic pancreatitis; sphincter of Oddi dysfunction; ) Musculoskeletal: Yes Chronic Back Pain Endocrine: No HEENT: No Cancer: No Psychosocial: No Integumentary: No Blood Disorders: No Family Medical History Reviewed Nursing Family Hx No Pertinent Family Hx Physical Exam Vital Signs Vital Signs - First Documented 02/25/19 10:49 Temp 97.2 Pulse 73 Resp 20 B/P (MAP) 137/79 (98) Pulse Ox 98 O2 Delivery Room Air Capillary Refill : Less Than 3 Seconds Height/Weight/BMI Height: 5'9.00" Weight: 170lbs. oz. 77.852646lr; BMI Method:Stated General Appearance: WD/WN, moderate distress (vomiting) HEENT: PERRL/EOMI, pharynx normal Neck: full range of motion, supple Respiratory: lungs clear, normal breath sounds Cardiovascular: regular rate, rhythm, no murmur Gastrointestinal: soft, guarding (right upper quadrant), tenderness (greatest in the right upper quadrant but tender overall) Extremities: non-tender, normal inspection Back: normal inspection, no CVA tenderness, no vertebral tenderness Neurologic/Psychiatric: alert, oriented x 3 Skin: warm/dry, pallor Progress/Results/Core Measures Results/Orders Lab Results Laboratory Tests Test 02/25/19 11:04 Range/Units White Blood Count 27.2 H 4.3-11.0 10^3/uL Red Blood Count 4.95 4.35-5.85 10^6/uL Hemoglobin 15.2 13.3-17.7 G/DL Hematocrit 43 40-54 % Mean Corpuscular Volume 87 80-99 FL Mean Corpuscular Hemoglobin 31 25-34 PG Mean Corpuscular Hemoglobin Concent 35 32-36 G/DL Red Cell Distribution Width 12.6 10.0-14.5 % Platelet Count 299 130-400 10^3/uL Mean Platelet Volume 11.2 H 7.4-10.4 FL Neutrophils (%) (Auto) 86 H 42-75 % Lymphocytes (%) (Auto) 9 L 12-44 % Monocytes (%) (Auto) 4 0-12 % Eosinophils (%) (Auto) 1 0-10 % Basophils (%) (Auto) 0 0-10 % Neutrophils # (Auto) 23.3 H 1.8-7.8 X 10^3 Lymphocytes # (Auto) 2.3 1.0-4.0 X 10^3 Monocytes # (Auto) 1.1 H 0.0-1.0 X 10^3 Eosinophils # (Auto) 0.4 H 0.0-0.3 10^3/uL Basophils # (Auto) 0.1 0.0-0.1 10^3/uL Neutrophils % (Manual) 76 % Lymphocytes % (Manual) 9 % Monocytes % (Manual) 3 % Eosinophils % (Manual) 1 % Band Neutrophils 11 % Blood Morphology Comment NORMAL Sodium Level 137 135-145 MMOL/L Potassium Level 3.8 3.6-5.0 MMOL/L Chloride Level 98 98-107 MMOL/L Carbon Dioxide Level 23 21-32 MMOL/L Anion Gap 16 H 5-14 MMOL/L Blood Urea Nitrogen 14 7-18 MG/DL Creatinine 1.00 0.60-1.30 MG/DL Estimat Glomerular Filtration Rate > 60 BUN/Creatinine Ratio 14 Glucose Level 188 H 70-105 MG/DL Calcium Level 9.4 8.5-10.1 MG/DL Corrected Calcium 8.5-10.1 MG/DL Total Bilirubin 0.4 0.1-1.0 MG/DL Aspartate Amino Transf (AST/SGOT) 28 5-34 U/L Alanine Aminotransferase (ALT/SGPT) 25 0-55 U/L Alkaline Phosphatase 102 40-136 U/L Total Protein 7.4 6.4-8.2 GM/DL Albumin 4.7 H 3.2-4.5 GM/DL Lipase 547 H 8-78 U/L My Orders Orders - ALYSHA PEREZ MD Cbc With Automated Diff (6/10/19 11:02) Comprehensive Metabolic Panel (02/25/19 11:02) Ua Culture If Indicated (02/25/19 11:02) Ondansetron Injection (Zofran Injectio (02/25/19 11:15) Ns Iv 1000 Ml (Sodium Chloride 0.9%) (02/25/19 11:02) Ed Iv/Invasive Line Start (02/25/19 11:02) Fentanyl Injection (Sublimaze Injection (02/25/19 11:02) Manual Differential (02/25/19 11:04) Lorazepam Injection (Ativan Injection) (02/25/19 12:30) Lipase (02/25/19 13:13) Fentanyl Injection (Sublimaze Injection (02/25/19 13:27) Ns Iv 1000 Ml (Sodium Chloride 0.9%) (02/25/19 15:00) Medications Given in ED Current Medications Medications Dose Ordered Sig/Ladonna Route Start Time Stop Time Status Last Admin Dose Admin Lorazepam 1 mg ONCE ONCE IVP 02/25/19 12:30 02/25/19 12:31 DC 02/25/19 13:07 1 MG Ondansetron HCl 8 mg ONCE ONCE IVP 02/25/19 11:15 02/25/19 11:17 DC 02/25/19 11:27 8 MG Vital Signs/I&O 02/25/19 10:49 Temp 97.2 Pulse 73 Resp 20 B/P (MAP) 137/79 (98) Pulse Ox 98 O2 Delivery Room Air Blood Pressure Mean: 98 Progress Progress Note : Progress Note Seen and evaluated. IV, labs, UA, normal saline 1 L bolus, Zofran 8 mg IV and fentanyl 50 g IV ordered. Patient complaining of anxiety and concerns for panic . Ativan 1 mg IV ordered. Patient with continued pain. Fentanyl 50 g IV repeated. Lipase added. Monitor patient. 1451: Patient states that he's better but still in moderate pain with decreased nausea. He states that he does not feel like he can take his oral medications for his C. difficile colitis and is concerned about going home. I have called for possible transfer to and pending call back. Patient does have significant colitis history of abdominal problem history. He does have GI specialist and the closest GI specialty is at . He exceeds the capability of local hospitals given his history. Patient will require transfer by ambulance due to ongoing pain and nausea concerns and IV fluid management. 1507: Patient has been accepted to [facility], Dr. Dariana Krishnan accepting. Patient and family agree with plan. Waiting private room bed due to his C. difficile history. Pending call back from . Departure Impression Primary Impression: Right upper quadrant abdominal pain Additional Impressions: Acute pancreatitis Qualified Codes: K85.90 - Acute pancreatitis without necrosis or infection, unspecified Intractable nausea and vomiting Qualified Codes: G43.A1 - Cyclical vomiting, intractable C. difficile colitis Disposition: XF SHT-TRM HOSP Condition: Stable Transfer Transfer Time: 15:07 Transfer Facility: [place], [place], Dr. Krishnan accepting Method of Transfer: EMS ALYSHA PEREZ MD Feb 25, 2019 11:40
[2019-02-25 11:50] LABS: BUN/CREATININE RATIO 14; CARBON DIOXIDE 23 MMOL/L (21-32); CHLORIDE 98 MMOL/L (98-107); GFR ESTIMATED > 60; POTASSIUM 3.8 MMOL/L (3.6-5.0); SODIUM 137 MMOL/L (135-145)
[2019-02-25 11:51] LABS: ALANINE AMINOTRANSFERASE 25 U/L (0-55); ALBUMIN 4.7 GM/DL (3.2-4.5); ALKALINE PHOSPHATASE 102 U/L (40-136); BILIRUBIN,TOTAL 0.4 MG/DL (0.1-1.0); CALCIUM 9.4 MG/DL (8.5-10.1); GLUCOSE 188 MG/DL (70-105); TOTAL PROTEIN 7.4 GM/DL (6.4-8.2)
[2019-02-25 11:58] LABS: BAND NEUTROPHILS 11 %; EOSINOPHILS % (MANUAL) 1 %; LYMPHOCYTES % (MANUAL) 9 %; MONOCYTES % (MANUAL) 3 %; NEUTROPHILS % (MANUAL) 76 %; RBC MORPH NORMAL
[2019-02-25] MEDS ORDERED: LORazepam INJ 2 MG/ML (ATIVAN) VIAL IVP ONE (12:30)
[2019-02-25] MEDS ORDERED: NS IV 1000 ML 1,000 ML IV SCH (15:00)
[2019-02-25 17:30] VITALS: BP 130/74
== END 2019-02-25 17:30 | disposition short-term general hospital (02) ==
LOC: EDUNIT# 10:41 → ER FS 10:44
DX: K85.90 Acute pancreatitis without necrosis or infection, unspecified (principal); G43.A1 Cyclical vomiting, in migraine, intractable; A04.72 Enterocolitis due to Clostridium difficile, not specified as recurrent; J45.909 Unspecified asthma, uncomplicated; Z87.19 Personal history of other diseases of the digestive system; Z88.8 Allergy status to other drugs, medicaments and biological substances; Z98.890 Other specified postprocedural states
CPT/HCPCS: 36415; 80053; 83690; 85007; 85027; 96361; 96374; 96375; 96376

== ENCOUNTER 2019-05-17 10:19 | Emergency (ER) | payer MEDICAID ==
[~2019-05-17] VITALS: Ht 175.3 cm; Wt 74.8 kg
[2019-05-17] MEDS ORDERED: PHENERGAN (10:38)
[2019-05-17] MEDS ORDERED: AMIT100T2 (10:38)
[2019-05-17] MEDS ORDERED: ONDA4TAB11 (10:38)
[2019-05-17] MEDS ORDERED: FENT1PAT9 TD (10:40)
[2019-05-17] MEDS ORDERED: NS IV 1000 ML 1,000 ML IV SCH (10:45)
[2019-05-17] MEDS ORDERED: HALOPERIDOL 5 MG/ML (HALDOL) AMP IV ONE (10:45)
[2019-05-17 10:49] LABS: BASOPHILS % (AUTO) 0 % (0-10); EOSINOPHILS % (AUTO) 3 % (0-10); HEMATOCRIT 46 % (40-54); HEMOGLOBIN 15.6 G/DL (13.3-17.7); LYMPHOCYTES % (AUTO) 15 % (12-44); MEAN CORPUSCULAR HEMOGLOBIN 30 PG (25-34); MEAN CORPUSCULAR HGB CONC 34 G/DL (32-36); MEAN CORPUSCULAR VOLUME 89 FL (80-99); MEAN PLATELET VOLUME 10.7 FL (7.4-10.4); MONOCYTES % (AUTO) 4 % (0-12); NEUTROPHILS % (AUTO) 78 % (42-75); PLATELET COUNT 206 10^3/uL (130-400); RED CELL DISTRIBUTION WIDTH 12.7 % (10.0-14.5); WHITE BLOOD COUNT 11.2 10^3/uL (4.3-11.0)
[2019-05-17 10:50] LABS: EOSINOPHILS # (AUTO) 0.3 10^3/uL (0.0-0.3); LYMPHOCYTES # (AUTO) 1.7 X 10^3 (1.0-4.0); MONOCYTES # (AUTO) 0.5 X 10^3 (0.0-1.0); NEUTROPHILS # (AUTO) 8.7 X 10^3 (1.8-7.8)
--- NOTE | 2019-05-17 10:54 | ED Abdominal Pain ---
General Chief Complaint: Abdominal/GI Problems Stated Complaint: VOMITING Source of Information: Patient Exam Limitations: No Limitations History of Present Illness Date Seen by Provider: May 17, 2019 Time Seen by Provider: 10:15 Initial Comments Patient is a 28-year-old male with history of pancreatitis and colitis presents with diffuse mid epigastric pain starting 3 days ago. Patient reports nausea and vomiting and uncontrolled abdominal pain despite taking home pain and nausea medication. No dizziness lightheadedness. No fevers chills, sweats. No reported hematemesis, coffee-ground emesis, melena or hematochezia. No other acute symptoms or complaints. Denies alcohol and drug use with the exception of marijuana. Timing/Duration: 3-4 Days Severity/Quality: Moderate Location: Epigastric Radiation: No Radiation Activities at Onset: None Modifying Factors: Improves With Analgesics Associated Symptoms: Denies Symptoms Allergies and Home Medications Allergies Coded Allergies: citalopram hydrobromide (Unverified Allergy, Unknown, NAUSEA, 02/15/19) dicyclomine (Verified Allergy, Unknown, nausea and vomiting, 02/15/19) paroxetine (Verified Allergy, Unknown, nausea and vomiting, 02/15/19) prochlorperazine (Verified Allergy, Unknown, muscle pain, 02/15/19) Home Medications Baclofen 10 Mg Tablet, 1 EACH PO QID PRN, (Reported) Diazepam 10 Mg Tablet, 1 EACH PO QID, (Reported) Fentanyl 1 Each Patch.td72, 50 MCG TD Q72H, (Reported) Patient Home Medication List Home Medication List Reviewed: Yes Review of Systems Review of Systems Constitutional: see HPI EENTM: See HPI Respiratory: See HPI Gastrointestinal: See HPI Genitourinary: See HPI Musculoskeletal: see HPI Skin: see HPI Psychiatric/Neurological: See HPI Hematologic/Lymphatic: See HPI Past Cqbugtn-Ayovpo-Rdshgk Hx Patient Social History Alcohol Use: Denies Use Recreational Drug Use: Yes (none in last 3 days) Drug of Choice: THC Smoking Status: Never a Smoker 2nd Hand Smoke Exposure: No Recent Hopitalizations: No Physical Abuse: No Sexual Abuse: No Mistreated: No Fear: No Seasonal Allergies Seasonal Allergies: No Past Medical History Surgeries: Yes Gallbladder Respiratory: Yes Asthma Cardiac: No Neurological: No Reproductive Disorders: No Genitourinary: No Gastrointestinal: Yes (irritable bowel; N/V; chronic pancreatitis; sphincter of Oddi dysfunction; ) Pancreatitis, Irritable Bowel Musculoskeletal: Yes Chronic Back Pain Endocrine: No HEENT: No Cancer: No Psychosocial: No Integumentary: No Blood Disorders: No Family Medical History No Pertinent Family Hx Physical Exam Vital Signs Vital Signs - First Documented 05/17/19 10:27 Temp 98.5 Pulse 86 Resp 18 B/P (MAP) 118/75 (89) Pulse Ox 98 O2 Delivery Room Air Capillary Refill : Height/Weight/BMI Height: 5'9.00" Weight: 170lbs. oz. 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, no motor/sensory deficits, oriented x 3 Progress/Results/Core Measures Results/Orders Lab Results Laboratory Tests Test 05/17/19 10:36 Range/Units White Blood Count 11.2 H 4.3-11.0 10^3/uL Red Blood Count 5.18 4.35-5.85 10^6/uL Hemoglobin 15.6 13.3-17.7 G/DL Hematocrit 46 40-54 % Mean Corpuscular Volume 89 80-99 FL Mean Corpuscular Hemoglobin 30 25-34 PG Mean Corpuscular Hemoglobin Concent 34 32-36 G/DL Red Cell Distribution Width 12.7 10.0-14.5 % Platelet Count 206 130-400 10^3/uL Mean Platelet Volume 10.7 H 7.4-10.4 FL Neutrophils (%) (Auto) 78 H 42-75 % Lymphocytes (%) (Auto) 15 12-44 % Monocytes (%) (Auto) 4 0-12 % Eosinophils (%) (Auto) 3 0-10 % Basophils (%) (Auto) 0 0-10 % Neutrophils # (Auto) 8.7 H 1.8-7.8 X 10^3 Lymphocytes # (Auto) 1.7 1.0-4.0 X 10^3 Monocytes # (Auto) 0.5 0.0-1.0 X 10^3 Eosinophils # (Auto) 0.3 0.0-0.3 10^3/uL Basophils # (Auto) 0.0 0.0-0.1 10^3/uL Sodium Level 141 135-145 MMOL/L Potassium Level 4.1 3.6-5.0 MMOL/L Chloride Level 99 98-107 MMOL/L Carbon Dioxide Level 28 21-32 MMOL/L Anion Gap 14 5-14 MMOL/L Blood Urea Nitrogen 11 7-18 MG/DL Creatinine 1.11 0.60-1.30 MG/DL Estimat Glomerular Filtration Rate > 60 BUN/Creatinine Ratio 10 Glucose Level 115 H 70-105 MG/DL Calcium Level 9.6 8.5-10.1 MG/DL Corrected Calcium 8.5-10.1 MG/DL Total Bilirubin 0.6 0.1-1.0 MG/DL Aspartate Amino Transf (AST/SGOT) 22 5-34 U/L Alanine Aminotransferase (ALT/SGPT) 15 0-55 U/L Alkaline Phosphatase 90 40-136 U/L Total Protein 7.5 6.4-8.2 GM/DL Albumin 4.7 H 3.2-4.5 GM/DL Lipase 613 H 8-78 U/L My Orders Orders - JAYA ZAVALA DO Cbc With Automated Diff (05/17/19 10:34) Comprehensive Metabolic Panel (05/17/19 10:34) Lipase (05/17/19 10:34) Ns Iv 1000 Ml (Sodium Chloride 0.9%) (05/17/19 10:45) Haloperidol Injection (Haldol Injectio (05/17/19 10:45) Morphine Injection (Morphine Injection (05/17/19 11:33) Famotidine Injection (Pepcid Injection) (05/17/19 11:45) Ct Abdomen/Pelvis W (05/17/19 11:33) Iohexol Injection (Omnipaque 350 Mg/Ml 1 (05/17/19 11:45) Received Contrast (Hold Metformin- Contr (05/17/19 11:45) Sodium Chloride Flush (Catheter Flush Sy (05/17/19 11:45) Ns (Ivpb) (Sodium Chloride 0.9% Ivpb Bag (05/17/19 11:45) Medications Given in ED Current Medications Medications Dose Ordered Sig/Ladonna Route Start Time Stop Time Status Last Admin Dose Admin Famotidine 20 mg ONCE ONCE IVP 05/17/19 11:45 05/17/19 11:46 DC 05/17/19 12:08 20 MG Haloperidol Lactate 2.5 mg ONCE ONCE IV 05/17/19 10:45 05/17/19 10:46 DC 05/17/19 10:41 2.5 MG Iohexol 100 ml ONCE ONCE IV 05/17/19 11:45 05/17/19 11:46 DC 05/17/19 11:59 100 ML Sodium Chloride 100 ml ONCE ONCE IV 05/17/19 11:45 05/17/19 11:46 DC 05/17/19 11:59 100 ML Vital Signs/I&O 05/17/19 05/17/19 10:27 12:09 Temp 98.5 98.5 Pulse 86 Resp 18 B/P (MAP) 118/75 (89) Pulse Ox 98 O2 Delivery Room Air Departure Communication (Admissions) Lab and imaging studies reviewed. Patient's symptoms significantly improved with treatment. Findings consistent with chronic colitis and pancreatitis. Patient's currently under management by GI out [facility] and has pain and nausea medications available at home. 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 Return precautions reviewed. Patient verbalizes understanding and agreement with discharge instructions prior to departure. Impression Primary Impression: Abdominal pain Additional Impressions: Colitis Pancreatitis, chronic Disposition: 01 HOME, SELF-CARE Condition: Stable Departure-Patient Inst. Decision time for Depature: 12:36 Referrals: NO,LOCAL PHYSICIAN (PCP) Primary Care Physician Patient Instructions: Colitis (DC), Chronic Pancreatitis (DC) JAYA ZAVALA DO May 17, 2019 10:54
[2019-05-17 11:28] LABS: POTASSIUM 4.1 MMOL/L (3.6-5.0); SODIUM 141 MMOL/L (135-145)
[2019-05-17 11:29] LABS: ALANINE AMINOTRANSFERASE 15 U/L (0-55); ALBUMIN 4.7 GM/DL (3.2-4.5); ALKALINE PHOSPHATASE 90 U/L (40-136); BILIRUBIN,TOTAL 0.6 MG/DL (0.1-1.0); BUN/CREATININE RATIO 10; CALCIUM 9.6 MG/DL (8.5-10.1); CARBON DIOXIDE 28 MMOL/L (21-32); CHLORIDE 99 MMOL/L (98-107); CREATININE SERUM 1.11 MG/DL (0.60-1.30); GFR ESTIMATED > 60; GLUCOSE 115 MG/DL (70-105); TOTAL PROTEIN 7.5 GM/DL (6.4-8.2)
[2019-05-17 11:30] LABS: LIPASE 613 U/L (8-78)
[2019-05-17] MEDS ORDERED: morphine INJ 10 MG/ML 1ML (SYR OR VIAL) IVP STA (11:33)
[2019-05-17] MEDS ORDERED: CATHETER FLUSH 10 ML SYR IV PRN (11:45)
[2019-05-17] MEDS ORDERED: NS 100 ML (IVPB) BAG IV ONE (11:45)
[2019-05-17] MEDS ORDERED: IOHEXOL 350 MG/ML 100 ML (OMNIPAQUE 350) VIAL IV ONE (11:45)
[2019-05-17] MEDS ORDERED: HOLD METFORMIN - RECEIVED CONTRAST 20 ML VIAL IV SCH (11:45)
[2019-05-17] MEDS ORDERED: FAMOTIDINE 20MG/2ML IV (PEPCID) IVP ONE (11:45)
--- NOTE | 2019-05-17 12:19 | Diagnostic Imaging Report ---
PROCEDURE: CT abdomen and pelvis with contrast. TECHNIQUE: Multiple contiguous axial images were obtained through the abdomen and pelvis after administration of intravenous contrast. Auto Exposure Controls were utilized during the CT exam to meet ALARA standards for radiation dose reduction. INDICATION: Abdominal pain, back pain, nausea, and vomiting. Patient with history of pancreatitis. COMPARISON: None. FINDINGS: LOWER THORAX: Mild basilar subsegmental atelectasis. Visualized heart is normal in size. LIVER: Normal. GALLBLADDER: Surgically absent. BILE DUCTS: No biliary ductal dilatation. SPLEEN: Normal. PANCREAS: Normal. No pancreatic ductal dilatation. ADRENAL GLANDS: No nodules. RIGHT KIDNEY AND URETER: No hydronephrosis. Normal renal enhancement. No suspicious mass. The visualized ureter is normal. LEFT KIDNEY AND URETER: No hydronephrosis. Normal renal enhancement. No suspicious mass. The visualized ureter is normal. STOMACH AND BOWEL: Stomach is physiologically-distended. No bowel obstruction. There is mild mucosal thickening involving the transverse and descending colon, with mild pericolonic inflammatory change. There is no mucosal thickening involving the small bowel. APPENDIX: Normal. PELVIC ORGANS/BLADDER: Bladder is normal. Prostate gland is normal in size. PERITONEUM AND RETROPERITONEUM: No pneumoperitoneum. No abdominal free fluid or loculated collection. LYMPH NODES: No lymphadenopathy. VESSELS: Abdominal aorta is nonaneurysmal. No venous thrombosis. ABDOMINAL WALL: Unremarkable. BONES: No acute abnormality. IMPRESSION: Mucosal thickening involving the transverse and descending colon, with mild pericolonic inflammatory change adjacent to the affected regions. Findings are felt to reflect an acute infectious/inflammatory colitis. There is no evidence of perforation, obstruction, or abscess formation. Dictated by: Dictated on workstation # [id number]
[2019-05-17 12:40] VITALS: BP 134/81
== END 2019-05-17 12:40 | disposition home or self-care (01) ==
LOC: EDUNIT# 10:19 → ER FS 10:21
DX: K52.9 Noninfective gastroenteritis and colitis, unspecified (principal); K86.1 Other chronic pancreatitis; J45.909 Unspecified asthma, uncomplicated; Z88.8 Allergy status to other drugs, medicaments and biological substances
CPT/HCPCS: 36415; 74177; 80053; 83690; 85025

== ENCOUNTER 2019-05-28 05:35 | Emergency (ER) | payer MEDICAID ==
[~2019-05-28] VITALS: Ht 69 cm; Wt 77.0 kg
[~2019-05-28 05:35] MED LIST changes: +AMIT100T2; +FENT1PAT9 TD; +ONDA4TAB11; +PHENERGAN
[2019-05-28] MEDS ORDERED: fentaNYL INJECTION 100 MCG/2 ML AMP ONE (05:39)
[2019-05-28] MEDS ORDERED: HALOPERIDOL 5 MG/ML (HALDOL) AMP IM ONE (05:45)
[2019-05-28] MEDS ORDERED: NS IV 1000 ML 1,000 ML IV SCH ×2 (05:45→07:00)
[2019-05-28] MEDS ORDERED: fentaNYL INJECTION 250 MCG/5 ML AMP IVP ONE (05:45)
[2019-05-28 06:00] LABS: WHITE BLOOD COUNT 21.5 10^3/uL (4.3-11.0)
[2019-05-28 06:01] LABS: BASOPHILS % (AUTO) 0 % (0-10); EOSINOPHILS % (AUTO) 2 % (0-10); HEMATOCRIT 45 % (40-54); HEMOGLOBIN 15.8 G/DL (13.3-17.7); LYMPHOCYTES # (AUTO) 1.2 X 10^3 (1.0-4.0); LYMPHOCYTES % (AUTO) 5 % (12-44); MEAN CORPUSCULAR HEMOGLOBIN 31 PG (25-34); MEAN CORPUSCULAR HGB CONC 35 G/DL (32-36); MEAN CORPUSCULAR VOLUME 88 FL (80-99); MEAN PLATELET VOLUME 10.9 FL (7.4-10.4); MONOCYTES % (AUTO) 5 % (0-12); NEUTROPHILS # (AUTO) 18.9 X 10^3 (1.8-7.8); NEUTROPHILS % (AUTO) 88 % (42-75); PLATELET COUNT 251 10^3/uL (130-400); RED CELL DISTRIBUTION WIDTH 12.6 % (10.0-14.5)
[2019-05-28 06:02] LABS: BASOPHILS # (AUTO) 0.1 10^3/uL (0.0-0.1); EOSINOPHILS # (AUTO) 0.4 10^3/uL (0.0-0.3)
--- NOTE | 2019-05-28 06:07 | ED Abdominal Pain ---
General Chief Complaint: Abdominal/GI Problems Stated Complaint: NAUSEA/VOMITTING Source of Information: Patient Exam Limitations: No Limitations (JAYA BAUER DO) History of Present Illness Date Seen by Provider: May 28, 2019 Time Seen by Provider: 05:45 Initial Comments Patient is a 28-year-old male with history of chronic pancreatitis and colitis managed by gastroenterology at presents with continued daily nausea vomiting and epigastric pain for the past several days with worsening epigastric pain, acute vomiting and diarrhea starting 2 hours prior to arrival. Patient describes abdominal pain as sharp, aching and radiating to his back. It is rated moderate to severe. Reports sweats, no fever. No hematemesis or coffee-ground emesis. No other acute symptoms or complaints. Patient last ate Jell-O and and Sprite prior to bedtime. Patient was evaluated in this emergency department 10 days ago for the same by this provider. Timing/Duration: 1 Week Severity/Quality: Severe Location: Epigastric Radiation: Back Activities at Onset: None Modifying Factors: Improves With Analgesics Associated Symptoms: Back Pain, Diaphoresis (JAYA BAUER DO) Allergies and Home Medications Allergies Coded Allergies: citalopram hydrobromide (Unverified Allergy, Unknown, NAUSEA, 02/15/19) dicyclomine (Verified Allergy, Unknown, nausea and vomiting, 02/15/19) paroxetine (Verified Allergy, Unknown, nausea and vomiting, 02/15/19) prochlorperazine (Verified Allergy, Unknown, muscle pain, 02/15/19) Home Medications Baclofen 10 Mg Tablet, 1 EACH PO QID PRN, (Reported) Diazepam 10 Mg Tablet, 1 EACH PO QID, (Reported) Fentanyl 1 Each Patch.td72, 50 MCG TD Q72H, (Reported) Patient Home Medication List Home Medication List Reviewed: Yes (JAYA BAUER DO) Review of Systems Review of Systems Constitutional: no symptoms reported, see HPI EENTM: No Symptoms Reported, See HPI Respiratory: See HPI Cardiovascular: No Symptoms Reported, See HPI Gastrointestinal: Abdominal Pain, Diarrhea, Nausea, Vomiting Musculoskeletal: no symptoms reported Skin: no symptoms reported Psychiatric/Neurological: Anxiety Endocrine: No Symptoms Reported (JAYA BAUER DO) Past Upzalix-Kmxhti-Gqwcme Hx Past Med/Social Hx: Reviewed Nursing Past Med/Soc Hx (JAYA BAUER DO) Patient Social History Drug of Choice: THC 2nd Hand Smoke Exposure: No Recent Hopitalizations: No (JAYA BAUER DO) Seasonal Allergies Seasonal Allergies: No (JAYA BAUER DO) Past Medical History Surgeries: Yes Gallbladder Respiratory: Yes Asthma Cardiac: No Neurological: No Reproductive Disorders: No Genitourinary: No Gastrointestinal: Yes (irritable bowel; N/V; chronic pancreatitis; sphincter of Oddi dysfunction; ) Pancreatitis, Irritable Bowel Musculoskeletal: Yes Chronic Back Pain Endocrine: No HEENT: No Cancer: No Psychosocial: No Integumentary: No Blood Disorders: No (JAYA BAUER DO) Family Medical History No Pertinent Family Hx (JAYA BAUER DO) Physical Exam Vital Signs Vital Signs - First Documented 05/28/19 05:45 Temp 36.1 Pulse 74 Resp 18 B/P (MAP) 131/86 Pulse Ox 100 O2 Delivery Room Air (FADY HOWELL MD) Vital Signs Capillary Refill : (JAYA BAUER DO) Height/Weight/BMI Height: 5'9.00" Weight: 165lbs. oz. 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, no motor/sensory deficits, alert, oriented x 3 Skin: pallor (JAYA BAUER DO) Progress/Results/Core Measures Results/Orders Lab Results Laboratory Tests Test 05/28/19 05:46 Range/Units White Blood Count 21.5 H 4.3-11.0 10^3/uL Red Blood Count 5.13 4.35-5.85 10^6/uL Hemoglobin 15.8 13.3-17.7 G/DL Hematocrit 45 40-54 % Mean Corpuscular Volume 88 80-99 FL Mean Corpuscular Hemoglobin 31 25-34 PG Mean Corpuscular Hemoglobin Concent 35 32-36 G/DL Red Cell Distribution Width 12.6 10.0-14.5 % Platelet Count 251 130-400 10^3/uL Mean Platelet Volume 10.9 H 7.4-10.4 FL Neutrophils (%) (Auto) 88 H 42-75 % Lymphocytes (%) (Auto) 5 L 12-44 % Monocytes (%) (Auto) 5 0-12 % Eosinophils (%) (Auto) 2 0-10 % Basophils (%) (Auto) 0 0-10 % Neutrophils # (Auto) 18.9 H 1.8-7.8 X 10^3 Lymphocytes # (Auto) 1.2 1.0-4.0 X 10^3 Monocytes # (Auto) 1.0 0.0-1.0 X 10^3 Eosinophils # (Auto) 0.4 H 0.0-0.3 10^3/uL Basophils # (Auto) 0.1 0.0-0.1 10^3/uL Neutrophils % (Manual) 74 % Lymphocytes % (Manual) 5 % Monocytes % (Manual) 3 % Eosinophils % (Manual) 3 % Band Neutrophils 15 % Blood Morphology Comment NORMAL Sodium Level 137 135-145 MMOL/L Potassium Level 3.7 3.6-5.0 MMOL/L Chloride Level 98 98-107 MMOL/L Carbon Dioxide Level 24 21-32 MMOL/L Anion Gap 15 H 5-14 MMOL/L Blood Urea Nitrogen 19 H 7-18 MG/DL Creatinine 1.03 0.60-1.30 MG/DL Estimat Glomerular Filtration Rate > 60 BUN/Creatinine Ratio 18 Glucose Level 217 H 70-105 MG/DL Calcium Level 9.5 8.5-10.1 MG/DL Corrected Calcium 8.5-10.1 MG/DL Total Bilirubin 1.1 H 0.1-1.0 MG/DL Aspartate Amino Transf (AST/SGOT) 23 5-34 U/L Alanine Aminotransferase (ALT/SGPT) 16 0-55 U/L Alkaline Phosphatase 85 40-136 U/L Troponin I < 0.30 <0.30 NG/ML Total Protein 7.5 6.4-8.2 GM/DL Albumin 4.8 H 3.2-4.5 GM/DL Lipase 665 H 8-78 U/L (FADY HOWELL MD) Micro Results Microbiology 05/28/19 Fecal Leukocyte Stain - Final, Complete 05/28/19 C. difficile GDH Antigen & Toxins - Final, Complete (FADY HOWELL MD) My Orders Orders - FADY HOWELL MD Ondansetron Injection (Zofran Injectio (05/28/19 06:25) Lorazepam Injection (Ativan Injection) (05/28/19 06:25) Stool Culture (05/28/19 06:40) Fecal Wbc (05/28/19 06:40) C Difficile Ag + Toxin A/B. (05/28/19 06:40) Ns Iv 1000 Ml (Sodium Chloride 0.9%) (05/28/19 07:00) Ns Iv 1000 Ml (Sodium Chloride 0.9%) (05/28/19 07:05) Ct Abdomen/Pelvis W (05/28/19 07:05) Iohexol Injection (Omnipaque 350 Mg/Ml 1 (05/28/19 07:15) Received Contrast (Hold Metformin- Contr (05/28/19 07:15) Sodium Chloride Flush (Catheter Flush Sy (05/28/19 07:15) Ns (Ivpb) (Sodium Chloride 0.9% Ivpb Bag (05/28/19 07:15) Lactated Ringers (Lr 1000 Ml Iv Solution (05/28/19 08:00) Fentanyl Injection (Sublimaze Injection (05/28/19 08:03) Ua Culture If Indicated (05/28/19 08:44) Pantoprazole Injection (Protonix Injecti (05/28/19 09:21) Ondansetron Injection (Zofran Injectio (05/28/19 09:21) Lorazepam Injection (Ativan Injection) (05/28/19 09:21) Promethazine Injection (Phenergan Injec (05/28/19 11:00) Promethazine Injection (Phenergan Injec (05/28/19 11:00) Fentanyl Injection (Sublimaze Injection (05/28/19 15:21) Lorazepam Injection (Ativan Injection) (05/28/19 15:21) Ondansetron Injection (Zofran Injectio (05/28/19 15:21) Famotidine Injection (Pepcid Injection) (05/28/19 15:26) (FADY HOWELL MD) Medications Given in ED Current Medications Medications Dose Ordered Sig/Ladonna Route Start Time Stop Time Status Last Admin Dose Admin Fentanyl Citrate 100 mcg ONCE ONCE IVP 05/28/19 05:45 05/28/19 05:46 DC 05/28/19 05:53 100 MCG Haloperidol Lactate 2.5 mg ONCE ONCE IM 05/28/19 05:45 05/28/19 05:46 DC 05/28/19 05:53 2.5 MG Iohexol 100 ml ONCE ONCE IV 05/28/19 07:15 05/28/19 07:16 DC 05/28/19 07:34 100 ML Promethazine HCl 25 mg ONCE ONCE IM 05/28/19 11:00 05/28/19 11:02 DC 05/28/19 11:15 25 MG Sodium Chloride 10 ml NEEDED PRN IV 05/28/19 07:15 05/28/19 15:40 DC 05/28/19 07:34 10 ML Sodium Chloride 100 ml ONCE ONCE IV 05/28/19 07:15 05/28/19 07:16 DC 05/28/19 07:34 100 ML (FADY HOWELL MD) Vital Signs/I&O 05/28/19 05/28/19 05/28/19 05:45 09:43 15:45 Temp 36.1 37.2 Pulse 74 63 98 Resp 18 16 16 B/P (MAP) 131/86 122/70 (87) 109/63 Pulse Ox 100 100 99 O2 Delivery Room Air Room Air Room Air (FADY HOWELL MD) Progress Progress Note #1: Progress Note I assumed care of the patient at [address] Bauer. His labs are coming back showing that he has elevated WBC count with left shift again. He also has elevated Lipase yet again. he states he has started having diarrhea again overnight. Will add on stool studies to evaluate for recurrent C Diff since he recently has had this over the summer. He was still having retching and dry heaves despite multiple meds at home including Zofran and phenergan and a dose of Fentanyl and Haloperidol from Dr. Bauer here. He had gotten improved n/v control with a dose of Zofran and ativan when he was seen in February so will give a dose of 4 mg Zofran and 1 mg Ativan to see if that might help him. Also due to his recurrent pancreatitis and being beyond the capability and resources of local facilities and no GI services in the area as well as continuity of care will check with about a transfer. Progress Note #2: Time: 06:40 Progress Note I spoke with the transfer center at [facility]. They took his information and will call back after checking with the medical staff. In the meantime with his elevated white blood cell count and lipase as well as showing signs of colitis on CT from May [address] scan. Will continue with fluids and nausea and pain medicine until transfer has been arranged to go to . Progress Note #3: Time: 07:[address] José Bonner will be the accepting physician. We will continue to manage his pain and nausea as well as continue to hydrate him until a bed assignment has been received from and patient can be transferred. Awaiting CT of his abdomen/pelvis to see if there is anything further to be causing his symptoms as well as a stool specimen to check for recurrent C. Diff. Progress Note #4: Time: 08:[address] scan does not show any acute significant abnormality. Pt was given another 100 mcg of Fentanyl to help with pain as we wait to hear from for a bed assignment. They did call back and state that they are full and it might take all day to find a bed assignment for him. Reviewed with pt and he still wishes to wait for for a bed rather than start over with new hospital. Change to LR for maintenance fluids at 150 mL/hr. Progress Note #5: Time: 16:00 Progress Note patient finally had a bed available at and was transported by EMS out of the ED. He has had repeated doses of nausea medicine and pain medicine. Given additional dose of Fentanyl, Ativan, Zofran just prior to leaving the ED (FADY HOWELL MD) Diagnostic Imaging Diagonstic Imaging: CT Plain Films/CT/US/NM/MRI: abdomen, pelvis Comments NAME: RAFY BOLANOS MED REC#: [id number] PT STATUS: REG ER : 1990 PHYSICIAN: FADY HOWELL MD ADMIT DATE: 05/28/19/ER FS Signed Date of Exam:05/28/19 CT ABDOMEN/PELVIS W PROCEDURE: CT abdomen and pelvis with contrast. TECHNIQUE: Multiple contiguous axial images were obtained through the abdomen and pelvis after administration of intravenous contrast. Auto Exposure Controls were utilized during the CT exam to meet ALARA standards for radiation dose reduction. INDICATION: Upper abdominal pain. COMPARISON: 05/17/2019. FINDINGS: Limited views of lower thorax are unremarkable. Liver is normal. No focal liver lesions are seen. Gallbladder is absent. No biliary ductal dilation. Portal vein is patent. Pancreas is normal. Spleen and adrenal glands are normal. Kidneys enhance symmetrically without focal lesion. No hydronephrosis. Urinary bladder is normal. There are no dilated loops of large or small bowel. No bowel obstruction or inflammation. No abdominal or pelvic lymphadenopathy. No free fluid or air. Abdominal aorta is normal in caliber. There are no suspicious osseous lesions. IMPRESSION: 1. No acute abnormality in the abdomen or pelvis. Dictated by: Dictated on workstation # [id number] Dict: 05/28/19807 Trans: 05/28/19826 [id number] Interpreted by: JUANITA FRITZ MD Electronically signed by: JUANITA FRITZ MD 05/28/19826 (FADY HOWELL MD) Departure Communication (Admissions) Workup in progress. Care endorsed oncoming ERP at 06:00. (JAYA BAUER DO) Impression Primary Impression: Acute recurrent pancreatitis Additional Impressions: Abdominal pain Qualified Codes: R10.13 - Epigastric pain Diarrhea Qualified Codes: R19.7 - Diarrhea, unspecified Disposition: 02 XFER SHT-TRM HOSP Condition: Stable Transfer Time Spoke to Accepting Phy: 07:02 Transfer Progress Notes 0640 D/w Gabriel RN, from [facility] transfer center about arranging tr ansfer for recurrent pancreatitis as the patient follows with GI at and exceeds capability of local resources. 0702 Dr. José Bonner is the accepting physician. Will call back with room assignment when available. In the meantime will repeat CT scan to evaluate further for his pancreatitis and colitis to ensure he does not show signs of perforation, worsening colitis or any abscess, necrotizing changes or pseudocyst. Transfer Facility: [facility] Method of Transfer: EMS (FADY HOWELL MD) Departure-Patient Inst. Referrals: NO,LOCAL PHYSICIAN (PCP/Family) Primary Care Physician JAYA BAUER DO May 28, 2019 06:07 FADY HOWELL MD May 28, 2019 07:10
[2019-05-28 06:21] LABS: BAND NEUTROPHILS 15 %; EOSINOPHILS % (MANUAL) 3 %; LYMPHOCYTES % (MANUAL) 5 %; MONOCYTES % (MANUAL) 3 %; NEUTROPHILS % (MANUAL) 74 %; RBC MORPH NORMAL
[2019-05-28 06:24] LABS: CARBON DIOXIDE 24 MMOL/L (21-32); CHLORIDE 98 MMOL/L (98-107); POTASSIUM 3.7 MMOL/L (3.6-5.0); SODIUM 137 MMOL/L (135-145)
[2019-05-28 06:25] LABS: ALANINE AMINOTRANSFERASE 16 U/L (0-55); ALBUMIN 4.8 GM/DL (3.2-4.5); ALKALINE PHOSPHATASE 85 U/L (40-136); BILIRUBIN,TOTAL 1.1 MG/DL (0.1-1.0); BUN/CREATININE RATIO 18; CALCIUM 9.5 MG/DL (8.5-10.1); CREATININE SERUM 1.03 MG/DL (0.60-1.30); GFR ESTIMATED > 60; GLUCOSE 217 MG/DL (70-105); TOTAL PROTEIN 7.5 GM/DL (6.4-8.2)
[2019-05-28] MEDS ORDERED: LORazepam INJ 2 MG/ML (ATIVAN) VIAL IVP STA ×3 (06:25→15:21)
[2019-05-28] MEDS ORDERED: ONDANSETRON 4 MG/2 ML (SDV) Z0FRAN IVP STA ×3 (06:25→15:21)
[2019-05-28 06:29] LABS: LIPASE 665 U/L (8-78)
[2019-05-28] MEDS ORDERED: NS IV 1000 ML 1,000 ML IV STA (07:05)
[2019-05-28] MEDS ORDERED: HOLD METFORMIN - RECEIVED CONTRAST 20 ML VIAL IV SCH (07:15)
[2019-05-28] MEDS ORDERED: NS 100 ML (IVPB) BAG IV ONE (07:15)
[2019-05-28] MEDS ORDERED: CATHETER FLUSH 10 ML SYR IV PRN (07:15)
[2019-05-28] MEDS ORDERED: IOHEXOL 350 MG/ML 100 ML (OMNIPAQUE 350) VIAL IV ONE (07:15)
[2019-05-28] MEDS ORDERED: LACTATED RINGERS 1,000 ML IV SCH (08:00)
[2019-05-28] MEDS ORDERED: fentaNYL INJECTION 100 MCG/2 ML AMP IVP STA ×2 (08:03→15:21)
--- NOTE | 2019-05-28 08:27 | Diagnostic Imaging Report ---
PROCEDURE: CT abdomen and pelvis with contrast. TECHNIQUE: Multiple contiguous axial images were obtained through the abdomen and pelvis after administration of intravenous contrast. Auto Exposure Controls were utilized during the CT exam to meet ALARA standards for radiation dose reduction. INDICATION: Upper abdominal pain. COMPARISON: 05/17/2019. FINDINGS: Limited views of lower thorax are unremarkable. Liver is normal. No focal liver lesions are seen. Gallbladder is absent. No biliary ductal dilation. Portal vein is patent. Pancreas is normal. Spleen and adrenal glands are normal. Kidneys enhance symmetrically without focal lesion. No hydronephrosis. Urinary bladder is normal. There are no dilated loops of large or small bowel. No bowel obstruction or inflammation. No abdominal or pelvic lymphadenopathy. No free fluid or air. Abdominal aorta is normal in caliber. There are no suspicious osseous lesions. IMPRESSION: 1. No acute abnormality in the abdomen or pelvis. Dictated by: Dictated on workstation # [id number]
[2019-05-28] MEDS ORDERED: PANTOPRAZOLE 40 MG (PROTONIX) VIAL IV STA (09:21)
[2019-05-28 09:43] VITALS: BP 122/70
[2019-05-28] MEDS ORDERED: PROMETHAZINE INJ 25 MG/ML (PHENERGAN) AMP IVP ONE (11:00)
[2019-05-28] MEDS ORDERED: PROMETHAZINE INJ 25 MG/ML (PHENERGAN) AMP IM ONE (11:00)
[2019-05-28] MEDS ORDERED: FAMOTIDINE 20MG/2ML IV (PEPCID) IVP STA (15:26)
[2019-05-28 15:45] VITALS: BP 109/63
== END 2019-05-28 15:40 | disposition short-term general hospital (02) ==
LOC: EDUNIT# 05:35 → ER FS 05:37
DX: K85.80 Other acute pancreatitis without necrosis or infection (principal); R19.7 Diarrhea, unspecified; J45.909 Unspecified asthma, uncomplicated; K58.9 Irritable bowel syndrome, unspecified; Z87.19 Personal history of other diseases of the digestive system; Z88.8 Allergy status to other drugs, medicaments and biological substances
CPT/HCPCS: 36415; 74177; 80053; 83690; 84484; 85007; 85027; 87015; 87045; 87046; 87324; 87449; 87899; 89055

== ENCOUNTER → 2019-07-02 | Outpatient (CLI) | payer MEDICAID ==
[2019-07-02 08:24] LABS: HEMATOCRIT 44 % (40-54); HEMOGLOBIN 15.2 G/DL (13.3-17.7); MEAN CORPUSCULAR HEMOGLOBIN 31 PG (25-34); MEAN CORPUSCULAR VOLUME 89 FL (80-99); WHITE BLOOD COUNT 7.7 10^3/uL (4.3-11.0)
[2019-07-02 08:25] LABS: BASOPHILS % (AUTO) 0 % (0-10); EOSINOPHILS # (AUTO) 0.3 10^3/uL (0.0-0.3); EOSINOPHILS % (AUTO) 4 % (0-10); LYMPHOCYTES # (AUTO) 1.5 X 10^3 (1.0-4.0); LYMPHOCYTES % (AUTO) 20 % (12-44); MEAN CORPUSCULAR HGB CONC 34 G/DL (32-36); MEAN PLATELET VOLUME 10.7 FL (7.4-10.4); MONOCYTES # (AUTO) 0.3 X 10^3 (0.0-1.0); MONOCYTES % (AUTO) 4 % (0-12); NEUTROPHILS # (AUTO) 5.5 X 10^3 (1.8-7.8); NEUTROPHILS % (AUTO) 72 % (42-75); PLATELET COUNT 182 10^3/uL (130-400)
[2019-07-02 08:51] LABS: ALANINE AMINOTRANSFERASE 22 U/L (0-55); ALBUMIN 4.7 GM/DL (3.2-4.5); ALKALINE PHOSPHATASE 85 U/L (40-136); AMYLASE 48 U/L (25-125); BILIRUBIN,TOTAL 1.2 MG/DL (0.1-1.0); BUN/CREATININE RATIO 13; CALCIUM 9.4 MG/DL (8.5-10.1); CARBON DIOXIDE 27 MMOL/L (21-32); CHLORIDE 102 MMOL/L (98-107); GFR ESTIMATED > 60; GLUCOSE 130 MG/DL (70-105); LIPASE 20 U/L (8-78); POTASSIUM 3.7 MMOL/L (3.6-5.0); SODIUM 140 MMOL/L (135-145); TOTAL PROTEIN 7.3 GM/DL (6.4-8.2)
== END ==
LOC: LAB FS 08:05
PROVIDERS: ATTEND Nurse Practitioner
DX: K85.90 Acute pancreatitis without necrosis or infection, unspecified (principal)
CPT/HCPCS: 36415; 80053; 82150; 82533; 83690; 85025

== ENCOUNTER 2019-11-11 09:40 | Emergency (ER) | payer MEDICAID ==
[~2019-11-11] VITALS: Ht 175 cm; Wt 70.0 kg
--- NOTE | 2019-11-11 09:57 | ED General ---
General Stated Complaint: VOMITING History of Present Illness Date Seen by Provider: Nov 11, 2019 Time Seen by Provider: 09:55 Initial Comments Patient presenting to emergency department for evaluation of intractable nausea and vomiting that started approximately 2 hours ago. Patient has long-standing issue with nausea and vomiting and has seen multiple specialists and is currently followed by GI at . The only diagnosis that they have come up with is a nonspecific colitis. He has had a cholecystectomy and sphincterotomy. I told them that I would do blood and imaging tested and they said that he has had some any CT scans that his GI physician at recommended not getting any further CT scans in the center was a definitive reason to do so. Patient's pain is epigastric and right upper quadrant aching and sharp associated with nonbloody nonbilious emesis and he is vomiting in the room and appears to be a clear yellowish color with no blood. No fevers diarrhea constipation dysuria hematuria or back pain. He appears uncomfortable but is nontoxic with normal vital signs. Allergies and Home Medications Allergies Coded Allergies: citalopram hydrobromide (Unverified Allergy, Unknown, NAUSEA, 02/15/19) dicyclomine (Verified Allergy, Unknown, nausea and vomiting, 02/15/19) paroxetine (Verified Allergy, Unknown, nausea and vomiting, 02/15/19) prochlorperazine (Verified Allergy, Unknown, muscle pain, 02/15/19) Home Medications Baclofen 10 Mg Tablet, 1 EACH PO QID PRN, (Reported) Diazepam 10 Mg Tablet, 1 EACH PO QID, (Reported) Fentanyl 1 Each Patch.td72, 50 MCG TD Q72H, (Reported) Patient Home Medication List Home Medication List Reviewed: Yes Review of Systems Review of Systems Constitutional: no symptoms reported EENTM: no symptoms reported Respiratory: no symptoms reported Cardiovascular: no symptoms reported Gastrointestinal: abdominal pain, nausea, vomiting Genitourinary: no symptoms reported Musculoskeletal: no symptoms reported Skin: no symptoms reported Psychiatric/Neurological: No Symptoms Reported All Other Systems Reviewed Negative Unless Noted: Yes Past Ipmqsxv-Udgccq-Mfkwat Hx Patient Social History Drug of Choice: THC 2nd Hand Smoke Exposure: No Recent Foreign Travel: No Contact w/Someone Who Travel: No Recent Hopitalizations: No Seasonal Allergies Seasonal Allergies: No Past Medical History Surgeries: Yes Gallbladder Respiratory: Yes Asthma Cardiac: No Neurological: No Reproductive Disorders: No Genitourinary: No Gastrointestinal: Yes (irritable bowel; N/V; chronic pancreatitis; sphincter of Oddi dysfunction; ) Pancreatitis, Irritable Bowel Musculoskeletal: Yes Chronic Back Pain Endocrine: No HEENT: No Cancer: No Psychosocial: No Integumentary: No Blood Disorders: No Family Medical History No Pertinent Family Hx Physical Exam Vital Signs Vital Signs - First Documented 11/11/19 10:01 Temp 36.0 Pulse 70 Resp 18 B/P (MAP) 133/86 (102) Pulse Ox 99 O2 Delivery Room Air Capillary Refill : Height, Weight, BMI Height: 5'9.00" Weight: 165lbs. oz. 74.207576fo; 161.00 BMI Method:Stated General Appearance: No Apparent Distress, WD/WN HEENT: Pharynx Normal Neck: Supple Respiratory: No Respiratory Distress Cardiovascular: Regular Rate, Rhythm Gastrointestinal: Soft, Tenderness (epigastric and RUQ. No rebound or guarding.) Back: Normal Inspection Extremity: Normal Capillary Refill Neurologic/Psychiatric: Alert, Oriented x3 Skin: Warm/Dry Progress/Results/Core Measures Suspected Sepsis SIRS Temperature: Pulse: Respiratory Rate: Laboratory Tests 11/11/19 10:00: White Blood Count 17.5H Blood Pressure / Mean: Laboratory Tests 11/11/19 10:00: Creatinine 0.91, Platelet Count 305, Total Bilirubin 0.9 Results/Orders Lab Results Laboratory Tests Test 11/11/19 10:00 Range/Units White Blood Count 17.5 H 4.3-11.0 10^3/uL Red Blood Count 4.89 4.35-5.85 10^6/uL Hemoglobin 15.2 13.3-17.7 G/DL Hematocrit 42 40-54 % Mean Corpuscular Volume 87 80-99 FL Mean Corpuscular Hemoglobin 31 25-34 PG Mean Corpuscular Hemoglobin Concent 36 32-36 G/DL Red Cell Distribution Width 13.2 10.0-14.5 % Platelet Count 305 130-400 10^3/uL Mean Platelet Volume 10.8 H 7.4-10.4 FL Neutrophils (%) (Auto) 77 H 42-75 % Lymphocytes (%) (Auto) 16 12-44 % Monocytes (%) (Auto) 5 0-12 % Eosinophils (%) (Auto) 2 0-10 % Basophils (%) (Auto) 0 0-10 % Neutrophils # (Auto) 13.4 H 1.8-7.8 X 10^3 Lymphocytes # (Auto) 2.9 1.0-4.0 X 10^3 Monocytes # (Auto) 0.8 0.0-1.0 X 10^3 Eosinophils # (Auto) 0.4 H 0.0-0.3 10^3/uL Basophils # (Auto) 0.1 0.0-0.1 10^3/uL Neutrophils % (Manual) 74 % Lymphocytes % (Manual) 17 % Monocytes % (Manual) 5 % Eosinophils % (Manual) 1 % Band Neutrophils 3 % Blood Morphology Comment NORMAL Sodium Level 138 135-145 MMOL/L Potassium Level 4.1 3.6-5.0 MMOL/L Chloride Level 101 98-107 MMOL/L Carbon Dioxide Level 20 L 21-32 MMOL/L Anion Gap 17 H 5-14 MMOL/L Blood Urea Nitrogen 15 7-18 MG/DL Creatinine 0.91 0.60-1.30 MG/DL Estimat Glomerular Filtration Rate > 60 BUN/Creatinine Ratio 16 Glucose Level 217 H 70-105 MG/DL Calcium Level 9.7 8.5-10.1 MG/DL Corrected Calcium 8.5-10.1 MG/DL Total Bilirubin 0.9 0.1-1.0 MG/DL Aspartate Amino Transf (AST/SGOT) 31 5-34 U/L Alanine Aminotransferase (ALT/SGPT) 26 0-55 U/L Alkaline Phosphatase 89 40-136 U/L Total Protein 7.6 6.4-8.2 GM/DL Albumin 4.7 H 3.2-4.5 GM/DL Lipase 22 8-78 U/L My Orders Orders - TALHA SAL DO Ondansetron Injection (Zofran Injectio (11/11/19 10:00) Fentanyl Injection (Sublimaze Injection (11/11/19 10:00) Diphenhydramine Injection (Benadryl Inje (11/11/19 10:00) Ns Iv 1000 Ml (Sodium Chloride 0.9%) (11/11/19 10:00) Cbc With Automated Diff (11/11/19 09:54) Comprehensive Metabolic Panel (11/11/19 09:54) Lipase (11/11/19 09:54) Manual Differential (11/11/19 10:00) Haloperidol Injection (Haldol Injectio (11/11/19 10:45) Diphenhydramine Injection (Benadryl Inje (11/11/19 10:45) Ns Iv 1000 Ml (Sodium Chloride 0.9%) (11/11/19 11:15) Pantoprazole Injection (Protonix Injecti (11/11/19 11:15) Morphine Injection (Morphine Injection (11/11/19 12:37) Normal Saline Bolus 1,000ml (11/11/19 12:45) Promethazine Injection (Phenergan Injec (11/11/19 12:45) Medications Given in ED Current Medications Medications Dose Ordered Sig/Ladonna Route Start Time Stop Time Status Last Admin Dose Admin Diphenhydramine HCl 25 mg ONCE ONCE IVP 11/11/19 10:00 11/11/19 10:01 DC 11/11/19 10:08 25 MG Diphenhydramine HCl 25 mg ONCE ONCE IVP 11/11/19 10:45 11/11/19 10:46 DC 11/11/19 10:47 25 MG Fentanyl Citrate 100 mcg ONCE ONCE IVP 11/11/19 10:00 11/11/19 10:01 DC 11/11/19 10:08 100 MCG Haloperidol Lactate 5 mg ONCE ONCE IV 11/11/19 10:45 11/11/19 10:46 DC 11/11/19 10:47 5 MG Ondansetron HCl 8 mg ONCE ONCE IVP 11/11/19 10:00 11/11/19 10:01 DC 11/11/19 10:06 8 MG Pantoprazole 40 mg ONCE ONCE IV 11/11/19 11:15 11/11/19 11:16 DC 11/11/19 11:13 40 MG Vital Signs/I&O 11/11/19 10:01 Temp 36.0 Pulse 70 Resp 18 B/P (MAP) 133/86 (102) Pulse Ox 99 O2 Delivery Room Air Capillary Refill : Progress Note : Progress Note Patient and say there is nothing necessarily different about this presentation of his abdominal pain nausea and vomiting. He has multiple medications that he takes at home help typically however he does require e mergency department visits every once in a while for his symptoms. I will start with Zofran Benadryl and fentanyl and reassess. Patient given 2 doses of Zofran and 1 dose of fentanyl to dose of Benadryl a dose of Haldol and a dose of Protonix. He says that he does not feel much better and is still having dry heaves. He is requesting transfer to [facility] as he follows with a Dr. wilkinson of the GI service at . Patient accepted by Dr. Soriano. Repeat abdominal exam benign. Some persistent upper pain but no rebound or guarding. No reason for emergent CT in my opinion, especially given he says this is same as prior episodes. He says he would like more meds for pain and nausea. Phenergan is tolerated by patient so I will try this in addition to morphine and additional IVF. Patient transferred in stable condition. Departure Impression Primary Impression: Intractable abdominal pain Additional Impressions: Intractable nausea and vomiting Leukocytosis Disposition: XF S[facility]-TRM HOSP Condition: Improved Transfer Transfer Reason: Patient preference Time Spoke to Accepting Phy: 11:30 Transfer Facility: [facility]. Patient ok to be transferred locally which I explained but patient is requesting to go to . [facility] accepted. Method of Transfer: EMS Departure-Patient Inst. Referrals: NO,LOCAL PHYSICIAN (PCP/Family) Primary Care Physician TALHA SLA DO Nov 11, 2019 09:57
[2019-11-11] MEDS ORDERED: diphenhydrAMINE 50 MG/ML INJ (BENADRYL) IVP ONE ×2 (10:00→10:45)
[2019-11-11] MEDS ORDERED: NS IV 1000 ML 1,000 ML IV SCH ×3 (10:00→12:45)
[2019-11-11] MEDS ORDERED: fentaNYL INJECTION 100 MCG/2 ML AMP IVP ONE ×2 (10:00→17:15)
[2019-11-11] MEDS ORDERED: ONDANSETRON 4 MG/2 ML (SDV) Z0FRAN IVP ONE (10:00)
[2019-11-11 10:25] LABS: HEMATOCRIT 42 % (40-54); HEMOGLOBIN 15.2 G/DL (13.3-17.7); MEAN CORPUSCULAR HEMOGLOBIN 31 PG (25-34); MEAN CORPUSCULAR HGB CONC 36 G/DL (32-36); MEAN CORPUSCULAR VOLUME 87 FL (80-99); RED CELL DISTRIBUTION WIDTH 13.2 % (10.0-14.5); WHITE BLOOD COUNT 17.5 10^3/uL (4.3-11.0)
[2019-11-11 10:26] LABS: BASOPHILS # (AUTO) 0.1 10^3/uL (0.0-0.1); BASOPHILS % (AUTO) 0 % (0-10); EOSINOPHILS # (AUTO) 0.4 10^3/uL (0.0-0.3); EOSINOPHILS % (AUTO) 2 % (0-10); LYMPHOCYTES # (AUTO) 2.9 X 10^3 (1.0-4.0); LYMPHOCYTES % (AUTO) 16 % (12-44); MEAN PLATELET VOLUME 10.8 FL (7.4-10.4); MONOCYTES # (AUTO) 0.8 X 10^3 (0.0-1.0); MONOCYTES % (AUTO) 5 % (0-12); NEUTROPHILS # (AUTO) 13.4 X 10^3 (1.8-7.8); NEUTROPHILS % (AUTO) 77 % (42-75); PLATELET COUNT 305 10^3/uL (130-400)
[2019-11-11 10:42] LABS: ALKALINE PHOSPHATASE 89 U/L (40-136); BILIRUBIN,TOTAL 0.9 MG/DL (0.1-1.0); BUN/CREATININE RATIO 16; CALCIUM 9.7 MG/DL (8.5-10.1); CARBON DIOXIDE 20 MMOL/L (21-32); CHLORIDE 101 MMOL/L (98-107); CREATININE SERUM 0.91 MG/DL (0.60-1.30); GFR ESTIMATED > 60; GLUCOSE 217 MG/DL (70-105); POTASSIUM 4.1 MMOL/L (3.6-5.0); SODIUM 138 MMOL/L (135-145)
[2019-11-11 10:43] LABS: ALANINE AMINOTRANSFERASE 26 U/L (0-55); ALBUMIN 4.7 GM/DL (3.2-4.5); LIPASE 22 U/L (8-78); TOTAL PROTEIN 7.6 GM/DL (6.4-8.2)
[2019-11-11] MEDS ORDERED: HALOPERIDOL 5 MG/ML (HALDOL) AMP IV ONE (10:45)
[2019-11-11 10:46] LABS: NEUTROPHILS % (MANUAL) 74 %
[2019-11-11 10:47] LABS: BAND NEUTROPHILS 3 %; EOSINOPHILS % (MANUAL) 1 %; LYMPHOCYTES % (MANUAL) 17 %; MONOCYTES % (MANUAL) 5 %; RBC MORPH NORMAL
[2019-11-11] MEDS ORDERED: PANTOPRAZOLE 40 MG (PROTONIX) VIAL IV ONE (11:15)
[2019-11-11] MEDS ORDERED: morphine INJ 10 MG/ML 1ML (SYR OR VIAL) IVP STA (12:37)
[2019-11-11] MEDS ORDERED: PROMETHAZINE INJ 25 MG/ML (PHENERGAN) AMP IVP ONE (12:45)
[2019-11-11] MEDS ORDERED: HOLD METFORMIN - RECEIVED CONTRAST 20 ML VIAL IV SCH (14:30)
[2019-11-11] MEDS ORDERED: IOHEXOL 350 MG/ML 100 ML (OMNIPAQUE 350) VIAL IV ONE (14:30)
[2019-11-11] MEDS ORDERED: NS 100 ML (IVPB) BAG IV ONE (14:30)
[2019-11-11] MEDS ORDERED: CATHETER FLUSH 10 ML SYR IV PRN (14:30)
--- NOTE | 2019-11-11 14:53 | Diagnostic Imaging Report ---
CT ABDOMEN/PELVIS W PROCEDURE: CT abdomen and pelvis with contrast. TECHNIQUE: Multiple contiguous axial images were obtained through the abdomen and pelvis after administration of intravenous contrast. All CT scans use one or more of the following dose optimizing techniques: automated exposure control, MA and/or KvP adjustment based on patient size and exam type or iterative reconstruction. INDICATION: Abdominal pain, nausea and emesis. COMPARISON: 05/28/2019. FINDINGS: No focal hepatic or splenic lesion is identified. Gallbladder is surgically absent. No pancreatic, adrenal gland or renal abnormality seen. There is no evidence of free fluid within the abdomen or pelvis. There is questionable mild mural thickening within the terminal ileum. Mild stool distends the colon. There is no transition point to indicate an obstruction. Unopacified urinary bladder is unremarkable. There is no evidence of appendiceal inflammation. IMPRESSION: Questionable mural thickening of terminal ileum which may represent enteritis. In proper setting, Crohn's disease is a consideration. Otherwise, no acute abnormality or adverse change is seen. Dictated by: Dictated on workstation # [id number]
--- NOTE | 2019-11-11 15:07 | Diagnostic Imaging Report ---
PROCEDURE: CT head without contrast. TECHNIQUE: Multiple contiguous axial images were obtained through the brain without the use of intravenous contrast. Auto Exposure Controls were utilized during the CT exam to meet ALARA standards for radiation dose reduction. INDICATION: Headache and dizziness. COMPARISON: No prior studies are available for comparison. FINDINGS: Ventricles and sulci are within normal limits. No sulcal effacement or midline shift is identified. No acute intra-axial or extra-axial hemorrhage is detected. Cisterns are patent. Visualized paranasal sinuses demonstrate some mucosal thickening of the frontal sinus and ethmoid air cells. IMPRESSION: 1. No acute intracranial process is detected. 2. Paranasal sinus mucosal disease. Dictated by: Dictated on workstation # [id number]
--- NOTE | 2019-11-11 17:26 | NUR ---
Called and notified patient's of room # BH 6207 and that EMS should be here soon for transfer.
[2019-11-11 17:36] VITALS: BP 125/77
== END 2019-11-11 17:38 | disposition short-term general hospital (02) ==
LOC: EDUNIT# 09:40 → ER FS 09:41
DX: R10.13 Epigastric pain (principal); R10.11 Right upper quadrant pain; R11.2 Nausea with vomiting, unspecified; D72.829 Elevated white blood cell count, unspecified; Z90.49 Acquired absence of other specified parts of digestive tract; Z88.8 Allergy status to other drugs, medicaments and biological substances
CPT/HCPCS: 36415; 70450; 74177; 80053; 83690; 85007; 85027; 96374; 96375; 96376

== ENCOUNTER 2020-01-07 10:08 | Emergency (ER) | payer MEDICAID ==
[~2020-01-07] VITALS: Ht 175.3 cm; Wt 77.3 kg
[2020-01-07] MEDS ORDERED: morphine INJ 10 MG/ML 1ML (SYR OR VIAL) IVP STA ×2 (10:17→15:13)
--- NOTE | 2020-01-07 10:27 | ED GI ---
General Chief Complaint: Abdominal/GI Problems Stated Complaint: ABD PAIN,N/V Source of Information: Patient, EMS Exam Limitations: No Limitations History of Present Illness Date Seen by Provider: Jan 07, 2020 Time Seen by Provider: 10:15 Initial Comments The patient is a 29-year-old male well-known to this emergency department for vi sits typically related to cyclic vomiting syndrome who presents for evaluation of nausea and vomiting as well as some upper abdominal discomfort. He arrives via EMS. He states that his doctors are at . He says that he has been having frequent episodes of nausea and vomiting over the last day and that the medications he tried taking at home has not been helping. He has morphine ta blets at home and also nausea suppositories which did not help. He says that this feels like his typical cyclic vomiting syndrome episodes. He reports a history of previous cholecystectomy. He is alert and oriented 4, actively dry heaving/vomiting, and appears uncomfortable. He denies rectal bleeding, fevers or chills, chest pain or shortness of breath, diarrhea, back or flank pain, dizziness or syncope. Timing/Duration: 12-24 Hours Severity/Quality: Moderate Location: RUQ, Epigastric Radiation: No Radiation Activities at Onset: None Associated Symptoms: No Chest Pain, No Fever/Chills; Nausea/Vomiting; No Shortness of Air Allergies and Home Medications Allergies Coded Allergies: citalopram hydrobromide (Unverified Allergy, Unknown, NAUSEA, 02/15/19) dicyclomine (Verified Allergy, Unknown, nausea and vomiting, 02/15/19) paroxetine (Verified Allergy, Unknown, nausea and vomiting, 02/15/19) prochlorperazine (Verified Allergy, Unknown, muscle pain, 02/15/19) Home Medications Baclofen 10 Mg Tablet, 1 EACH PO QID PRN, (Reported) Diazepam 10 Mg Tablet, 1 EACH PO QID, (Reported) Fentanyl 1 Each Patch.td72, 50 MCG TD Q72H, (Reported) Patient Home Medication List Home Medication List Reviewed: Yes Review of Systems Review of Systems Constitutional: no symptoms reported EENTM: No Symptoms Reported Respiratory: No Symptoms Reported Cardiovascular: No Symptoms Reported Gastrointestinal: Abdominal Pain, Nausea, Vomiting Genitourinary: No Symptoms Reported Musculoskeletal: no symptoms reported Skin: no symptoms reported Psychiatric/Neurological: No Symptoms Reported Endocrine: No Symptoms Reported Hematologic/Lymphatic: No Symptoms Reported All Other Systems Reviewed Negative Unless Noted: Yes Past Feojadh-Dhjfsi-Xqgerl Hx Patient Social History Alcohol Use: Denies Use Recreational Drug Use: No Drug of Choice: THC 2nd Hand Smoke Exposure: No Recent Hopitalizations: No Physical Abuse: No Sexual Abuse: No Mistreated: No Fear: No Seasonal Allergies Seasonal Allergies: No Past Medical History Surgeries: Yes Gallbladder Respiratory: Yes Asthma Cardiac: No Neurological: No Reproductive Disorders: No Genitourinary: No Gastrointestinal: Yes (irritable bowel; N/V; chronic pancreatitis; sphincter of Oddi dysfunction; ) Pancreatitis, Irritable Bowel Musculoskeletal: Yes Chronic Back Pain Endocrine: No HEENT: No Cancer: No Psychosocial: No Integumentary: No Blood Disorders: No Family Medical History No Pertinent Family Hx Physical Exam Vital Signs Vital Signs - First Documented 01/07/20 10:08 Temp 35.7 Pulse 77 Resp 18 B/P (MAP) 150/75 (100) Pulse Ox 99 O2 Delivery Room Air Capillary Refill : Height/Weight/BMI Height: 5'9.00" Weight: 165lbs. oz. 74.470253lx; 22.00 BMI Method:Stated General Appearance: WD/WN, no apparent distress HEENT: PERRL/EOMI Respiratory: chest non-tender, lungs clear, normal breath sounds, no respiratory distress Cardiovascular: regular rate, rhythm, no edema, no JVD Gastrointestinal: normal bowel sounds, soft, no pulsatile mass, tenderness (epigastric/RUQ mild), other (dry heaving) Extremities: normal range of motion, no pedal edema Back: normal inspection, no CVA tenderness, no vertebral tenderness Neurologic/Psychiatric: no motor/sensory deficits, alert, normal mood/affect, oriented x 3 Skin: normal color Focused Exam Lactate Level 01/07/20 11:50: Lactic Acid Level 5.66*H 01/07/20 13:25: Lactic Acid Level 3.91*H Lactic Acid Level Laboratory Tests Test 01/07/20 11:50 01/07/20 13:25 Lactic Acid Level 5.66 MMOL/L (0.50-2.00) *H 3.91 MMOL/L (0.50-2.00) *H Progress/Results/Core Measures Results/Orders Lab Results Laboratory Tests Test 01/07/20 10:14 01/07/20 11:50 01/07/20 13:25 Range/Units White Blood Count 28.5 H 4.3-11.0 10^3/uL Red Blood Count 4.86 4.35-5.85 10^6/uL Hemoglobin 15.0 13.3-17.7 G/DL Hematocrit 43 40-54 % Mean Corpuscular Volume 87 80-99 FL Mean Corpuscular Hemoglobin 31 25-34 PG Mean Corpuscular Hemoglobin Concent 35 32-36 G/DL Red Cell Distribution Width 12.9 10.0-14.5 % Platelet Count 376 130-400 10^3/uL Mean Platelet Volume 11.1 H 7.4-10.4 FL Neutrophils (%) (Auto) 80 H 42-75 % Lymphocytes (%) (Auto) 14 12-44 % Monocytes (%) (Auto) 5 0-12 % Eosinophils (%) (Auto) 1 0-10 % Basophils (%) (Auto) 0 0-10 % Neutrophils # (Auto) 22.7 H 1.8-7.8 X 10^3 Lymphocytes # (Auto) 3.8 1.0-4.0 X 10^3 Monocytes # (Auto) 1.2 H 0.0-1.0 X 10^3 Eosinophils # (Auto) 0.3 0.0-0.3 10^3/uL Basophils # (Auto) 0.1 0.0-0.1 10^3/uL Neutrophils % (Manual) 76 % Lymphocytes % (Manual) 14 % Monocytes % (Manual) 3 % Eosinophils % (Manual) 2 % Basophils % (Manual) 0 % Metamyelocytes % 1 % Band Neutrophils 4 % Sodium Level 138 135-145 MMOL/L Potassium Level 4.0 3.6-5.0 MMOL/L Chloride Level 99 98-107 MMOL/L Carbon Dioxide Level 19 L 21-32 MMOL/L Anion Gap 20 H 5-14 MMOL/L Blood Urea Nitrogen 18 7-18 MG/DL Creatinine 0.89 0.60-1.30 MG/DL Estimat Glomerular Filtration Rate > 60 BUN/Creatinine Ratio 20 Glucose Level 251 H 70-105 MG/DL Calcium Level 9.5 8.5-10.1 MG/DL Corrected Calcium 8.5-10.1 MG/DL Total Bilirubin 0.5 0.1-1.0 MG/DL Aspartate Amino Transf (AST/SGOT) 27 5-34 U/L Alanine Aminotransferase (ALT/SGPT) 22 0-55 U/L Alkaline Phosphatase 94 40-136 U/L Total Protein 7.3 6.4-8.2 GM/DL Albumin 4.6 H 3.2-4.5 GM/DL Amylase Level 107 25-125 U/L Lipase 66 8-78 U/L Lactic Acid Level 5.66 *H 3.91 *H 0.50-2.00 MMOL/L My Orders Orders - ALICE GENAO DO Ns Iv 1000 Ml (Sodium Chloride 0.9%) (01/07/20 10:30) Promethazine Injection (Phenergan Injec (01/07/20 10:30) Morphine Injection (Morphine Injection (01/07/20 10:17) Comprehensive Metabolic Panel (01/07/20 10:20) Lipase (01/07/20 10:20) Amylase (01/07/20 10:20) Ua Culture If Indicated (01/07/20 10:20) Ed Iv/Invasive Line Start (01/07/20 10:20) Cbc With Automated Diff (01/07/20 10:20) Manual Differential (01/07/20 10:14) Lorazepam Injection (Ativan Injection) (01/07/20 11:00) Lactic Acid Analyzer (01/07/20 11:28) Blood Culture (01/07/20 11:28) Ns Iv 1000 Ml (Sodium Chloride 0.9%) (01/07/20 12:15) Promethazine Injection (Phenergan Injec (01/07/20 12:15) Haloperidol Injection (Haldol Injectio (01/07/20 12:45) Ns Iv 1000 Ml (Sodium Chloride 0.9%) (01/07/20 13:30) Promethazine Injection (Phenergan Injec (01/07/20 15:15) Morphine Injection (Morphine Injection (01/07/20 15:13) Normal Saline Bolus 1,000ml (01/07/20 15:30) Medications Given in ED Current Medications Medications Dose Ordered Sig/Ladonna Route Start Time Stop Time Status Last Admin Dose Admin Haloperidol Lactate 5 mg ONCE ONCE IV 01/07/20 12:45 01/07/20 12:46 DC 01/07/20 13:06 5 MG Lorazepam 2 mg ONCE ONCE IVP 01/07/20 11:00 01/07/20 11:01 DC 01/07/20 10:55 2 MG Promethazine HCl 25 mg ONCE ONCE IVP 01/07/20 10:30 01/07/20 10:31 DC 01/07/20 10:26 25 MG Promethazine HCl 25 mg ONCE ONCE IVP 01/07/20 12:15 01/07/20 12:16 DC 01/07/20 12:18 25 MG Vital Signs/I&O 01/07/20 01/07/20 01/07/20 10:08 14:02 14:42 Temp 35.7 36.6 36.4 Pulse 77 100 87 Resp 18 16 16 B/P (MAP) 150/75 (100) 159/94 (115) 144/71 Pulse Ox 99 98 98 O2 Delivery Room Air Room Air Room Air Progress Progress Note : Progress Note @1232 - transfer line called at this time. Pt has physicians there and it is his preferred facility. Awaiting call back. @1320 - [facility] states to repeat the lactic acid and call them back with result to determine bed type. They will accept the patient for transfer. @1410 - Dr. Dariana Krishnan accepts the pt for transfer. Departure Impression Primary Impression: Dehydration Additional Impressions: Elevated lactic acid level Cyclic vomiting syndrome Disposition: XF SHT-TRM HOSP Condition: Stable Admissions Decision to Admit Reason: Admit from ER (General) Transfer Transfer Reason: Exceeds level of care Time Spoke to Accepting Phy: 14:[address] Dariana Krishnan accepts the transfer to [facility] Transfer Time: 15:20 Transfer Facility: [facility] Method of Transfer: EMS Departure-Patient Inst. Referrals: SHARA REDDY APRN (PCP/Family) Primary Care Physician ALICE GENAO DO Jan 07, 2020 10:27
[2020-01-07] MEDS ORDERED: NS IV 1000 ML 1,000 ML IV SCH ×4 (10:30→15:30)
[2020-01-07] MEDS ORDERED: PROMETHAZINE INJ 25 MG/ML (PHENERGAN) AMP IVP ONE ×3 (10:30→15:15)
[2020-01-07 10:35] LABS: BASOPHILS % (AUTO) 0 % (0-10); EOSINOPHILS % (AUTO) 1 % (0-10); HEMATOCRIT 43 % (40-54); MEAN CORPUSCULAR HEMOGLOBIN 31 PG (25-34); MEAN CORPUSCULAR HGB CONC 35 G/DL (32-36); MEAN CORPUSCULAR VOLUME 87 FL (80-99); MEAN PLATELET VOLUME 11.1 FL (7.4-10.4); NEUTROPHILS # (AUTO) 22.7 X 10^3 (1.8-7.8); NEUTROPHILS % (AUTO) 80 % (42-75); PLATELET COUNT 376 10^3/uL (130-400); RED CELL DISTRIBUTION WIDTH 12.9 % (10.0-14.5); WHITE BLOOD COUNT 28.5 10^3/uL (4.3-11.0)
[2020-01-07 10:36] LABS: BASOPHILS # (AUTO) 0.1 10^3/uL (0.0-0.1); EOSINOPHILS # (AUTO) 0.3 10^3/uL (0.0-0.3); LYMPHOCYTES # (AUTO) 3.8 X 10^3 (1.0-4.0); LYMPHOCYTES % (AUTO) 14 % (12-44); MONOCYTES # (AUTO) 1.2 X 10^3 (0.0-1.0); MONOCYTES % (AUTO) 5 % (0-12)
[2020-01-07 10:56] LABS: BAND NEUTROPHILS 4 %; BASOPHILS % (MANUAL) 0 %; EOSINOPHILS % (MANUAL) 2 %; LYMPHOCYTES % (MANUAL) 14 %; METAMYELOCYTES % 1 %; MONOCYTES % (MANUAL) 3 %; NEUTROPHILS % (MANUAL) 76 %
[2020-01-07 10:58] LABS: CARBON DIOXIDE 19 MMOL/L (21-32); CHLORIDE 99 MMOL/L (98-107); SODIUM 138 MMOL/L (135-145)
[2020-01-07 10:59] LABS: ALANINE AMINOTRANSFERASE 22 U/L (0-55); ALBUMIN 4.6 GM/DL (3.2-4.5); ALKALINE PHOSPHATASE 94 U/L (40-136); AMYLASE 107 U/L (25-125); BILIRUBIN,TOTAL 0.5 MG/DL (0.1-1.0); BUN/CREATININE RATIO 20; CALCIUM 9.5 MG/DL (8.5-10.1); CREATININE SERUM 0.89 MG/DL (0.60-1.30); GFR ESTIMATED > 60; GLUCOSE 251 MG/DL (70-105); LIPASE 66 U/L (8-78); TOTAL PROTEIN 7.3 GM/DL (6.4-8.2)
[2020-01-07] MEDS ORDERED: LORazepam INJ 2 MG/ML (ATIVAN) VIAL IVP ONE (11:00)
[2020-01-07] MEDS ORDERED: HALOPERIDOL 5 MG/ML (HALDOL) AMP IV ONE (12:45)
--- NOTE | 2020-01-07 12:59 | NUR ---
Called pharmacy to verify haloperidol for IV use and they stated the vial we have can be used IV.
--- NOTE | 2020-01-07 13:36 | NUR ---
Haldol was diluted with a 10ml flush. Haldol finished on mini-infuser at this time.
[2020-01-07 14:02] VITALS: BP 159/94
[2020-01-07 14:42] VITALS: BP 144/71
[2020-01-07] MEDS ORDERED: PROMETHAZINE INJ 25 MG/ML (PHENERGAN) AMP ONE (15:09)
[2020-01-07] MEDS ORDERED: morphine INJ 10 MG/ML 1ML (SYR OR VIAL) ONE (15:09)
--- NOTE | 2020-01-07 15:30 | NUR ---
Fluids continued in route to [facility].
--- NOTE | 2020-01-07 15:30 | NUR ---
Report given to ALLAN Lundberg and Tesfaye, EMT. Care transferred at this time. EMS left with patient.
--- OUTSIDE RECORDS SUMMARY | 2020-01-07 16:39 | XMS REPORT | Continuity of Care Document ---
Author Organization Unknown Address Unknown Phone Unavailable Allergies Active Description Code Type Severity Reaction Onset Reported/Identified Relationship to Patient Clinical Status Yes citalopram hydrobromide [id number] Drug Allergy Unknown NAUSEA 02/15/2019 Yes dicyclomine [id number] Drug Aller gy Unknown nausea and vomi 02/15/2019 Yes paroxetine [id number] Drug Allerg y Unknown nausea and vomi 02/15/2019 Yes prochlorperazine [id number] Drug Allergy Unknown muscle pain 02/15/2019 Medications There is no data. Problems Date Dx Coded Attending Type Code Diagnosis Diagnosed By 02/15/2019 JAMEEL BARRETT DOINA T Ot E86.0 DEHYDRATION 02/15/2019 JAMEEL BARRETT DOINA T Ot K58.9 IRRITABLE BOWEL SYNDROME WITHOUT DIARRHE 02/15/2019 JAMEEL BARRETT DOINA T Ot K85.90 ACUTE PANCREATITIS WITHOUT NECROSIS OR I 02/15/2019 JAMEEL BARRETT DOINA T Ot R11.2 NAUSEA WITH VOMITING, UNSPECIFIED 02/15/2019 JAMEEL BARRETT DOINA T Ot Z87.19 PERSONAL HISTORY OF OTHER DISEASES OF 02/15/2019 JAMEEL BARRETT DOINA T Ot Z88.8 ALLERGY STATUS TO OT DRUG/MEDS/BIOL SUB 02/15/2019 JAMEEL BARRETT DOINA T Ot Z90.49 ACQUIRED ABSENCE OF OTHER SPECIFIED PART 02/18/2019 JAMEEL BARRETT DOINA T Ot E86.0 DEHYDRATION 02/18/2019 JAMEEL BARRETT DOINA T Ot K58.9 IRRITABLE BOWEL SYNDROME WITHOUT DIARRHE 02/18/2019 JAMEEL BARRETT DOINA T Ot K85.90 ACUTE PANCREATITIS WITHOUT NECROSIS OR I 02/18/2019 JAMEEL BARRETT DOINA T Ot R11.2 NAUSEA WITH VOMITING, UNSPECIFIED 02/18/2019 JAMEEL BARRETT DOINA T Ot Z87.19 PERSONAL HISTORY OF OTHER DISEASES OF 02/18/2019 JAMEEL BARRETT DOINA T Ot Z88.8 ALLERGY STATUS TO OTH DRUG/MEDS/BIOL SUB 02/18/2019 ANNI BARRETT DO T Ot Z90.49 ACQUIRED ABSENCE OF OTHER SPECIFIED PART 02/25/2019 ALYSHA PEREZ MD Ot A04.72 ENTEROCOLITIS D/T CLOSTRIDIUM DIFFICILE, 02/25/2019 ALYSHA PEREZ MD Ot G43.A1 CYCLICAL VOMITING, INTRACTABLE 02/25/2019 ALYSHA PEREZ MD Ot J45.909 UNSPECIFIED ASTHMA, UNCOMPLICATED 02/25/2019 ALYSHA PEREZ MD Ot K85.90 ACUTE PANCREATITIS WITHOUT NECROSIS OR I 02/25/2019 ALYSHA PEREZ MD Ot R10.11 RIGHT UPPER QUADRANT PAIN 02/25/2019 ALYSHA PEREZ MD Ot Z87.19 PERSONAL HISTORY OF OTHER DISEASES OF 02/25/2019 ALYSHA PEREZ MD Ot Z88.8 ALLERGY STATUS TO OTH DRUG/MEDS/BIOL SUB 02/25/2019 ALYSHA PEREZ MD Ot Z98.890 OTHER SPECIFIED POSTPROCEDURAL STATES 02/28/2019 ALYSHA PEREZ MD Ot A04.72 ENTEROCOLITIS D/T CLOSTRIDIUM DIFFICILE, 02/28/2019 ALYSHA PEREZ MD Ot G43.A1 CYCLICAL VOMITING, INTRACTABLE 02/28/2019 ALYSHA PEREZ MD Ot J45.909 UNSPECIFIED ASTHMA, UNCOMPLICATED 02/28/2019 ALYSHA PEREZ MD Ot K85.90 ACUTE PANCREATITIS WITHOUT NECROSIS OR I 02/28/2019 ALYSHA PEREZ MD Ot R10.11 RIGHT UPPER QUADRANT PAIN 02/28/2019 ALYSHA PEREZ MD Ot Z87.19 PERSONAL HISTORY OF OTHER DISEASES OF 02/28/2019 ALYSHA PEREZ MD Ot Z88.8 ALLERGY STATUS TO OTH DRUG/MEDS/BIOL SUB 02/28/2019 ALYSHA PEREZ MD Ot Z98.890 OTHER SPECIFIED POSTPROCEDURAL STATES 05/17/2019 JAYA ZAVALA DO, Ot J45.909 UNSPECIFIED ASTHMA, UNCOMPLICATED 05/17/2019 JAYA ZAVALA DO Ot K52.9 NONINFECTIVE GASTROENTERITIS AND COLITIS 05/17/2019 JAYA ZAVALA DO Ot K86.1 OTHER CHRONIC PANCREATITIS 05/17/2019 ZAVALA DO, JAYA Ot R10.13 EPIGASTRIC PAIN 05/17/2019 ZAVALA DO, JAYA Ot Z88.8 ALLERGY STATUS TO OTH DRUG/MEDS/BIOL SUB 05/21/2019 ZAVALA DO, JAYA Ot J45.909 UNSPECIFIED ASTHMA, UNCOMPLICATED 05/21/2019 ZAVALA DO, JAYA Ot K52.9 NONINFECTIVE GASTROENTERITIS AND COLITIS 05/21/2019 ZAVALA DO, JAYA Ot K86.1 OTHER CHRONIC PANCREATITIS 05/21/2019 ZAVALA DO, JAYA Ot R10.13 EPIGASTRIC PAIN 05/21/2019 ZAVALA DO, JAYA Ot Z88.8 ALLERGY STATUS TO OTH DRUG/MEDS/BIOL SUB 05/28/2019 LYNDA PATEL, FADY [place] Ot J45.9 09 UNSPECIFIED ASTHMA, UNCOMPLICATED 05/28/2019 LYNDA PATEL, FADY [place] Ot K58.9 IRRITABLE BOWEL SYNDROME WITHOUT DIARRHE 05/28/2019 FADY HOWELL MD E Ot K85.8 0 OTHER ACUTE PANCREATITIS WITHOUT NECROSI 05/28/2019 FADY HOWELL MD E Ot R11.2 NAUSEA WITH VOMITING, UNSPECIFIED 05/28/2019 FADY HOWELL MD E Ot R19.7 DIARRHEA, UNSPECIFIED 05/28/2019 LYNDA PATEL, FADY E Ot Z87.1 9 PERSONAL HISTORY OF OTHER DISEASES OF 05/28/2019 FADY HOWELL MD Ot Z88.8 ALLERGY STATUS TO OTH DRUG/MEDS/BIOL SUB 05/30/2019 FADY HOWELL MD Ot J45.9 09 UNSPECIFIED ASTHMA, UNCOMPLICATED 05/30/2019 FADY HOWELL MD E Ot K58.9 IRRITABLE BOWEL SYNDROME WITHOUT DIARRHE 05/30/2019 FADY HOWELL MD E Ot K85.8 0 OTHER ACUTE PANCREATITIS WITHOUT NECROSI 05/30/2019 FADY HOWELL MD E Ot R11.2 NAUSEA WITH VOMITING, UNSPECIFIED 05/30/2019 FADY HOWELL MD E Ot R19.7 DIARRHEA, UNSPECIFIED 05/30/2019 FADY HOWELL MD E Ot Z87.1 9 PERSONAL HISTORY OF OTHER DISEASES OF 05/30/2019 FADY HOWELL MD Ot Z88.8 ALLERGY STATUS TO OTH DRUG/MEDS/BIOL SUB 07/04/2019 AME KO APRN Ot K85.90 ACUTE PANCREATITIS WITHOUT NECROSIS OR I 11/11/2019 [facility], TALHA Pablo Ot D72.829 ELEVATED WHITE BLOOD CELL COUNT, UNSPECI 11/11/2019 [facility], TALHA Pablo Ot R10.11 RIGHT UPPER QUADRANT PAIN 11/11/2019 [facility], TALHA Pablo Ot R10.13 EPIGASTRIC PAIN 11/11/2019 [facility], TALHA Pablo Ot R11 .2 NAUSEA WITH VOMITING, UNSPECIFIED 11/11/2019 [facility], TALHA Pablo Ot Z88 .8 ALLERGY STATUS TO OT DRUG/MEDS/BIOL SUB 11/11/2019 [facility], TALHA Pablo Ot Z90.49 ACQUIRED ABSENCE OF OTHER SPECIFIED PART 11/17/2019 [facility], TALHA Pablo Ot D72.829 ELEVATED WHITE BLOOD CELL COUNT, UNSPECI 11/17/2019 [facility], TALHA Pablo Ot R10.11 RIGHT UPPER QUADRANT PAIN 11/17/2019 [facility], TALHA Pablo Ot R10.13 EPIGASTRIC PAIN 11/17/2019 [facility], TALHA Pablo Ot R11 .2 NAUSEA WITH VOMITING, UNSPECIFIED 11/17/2019 [facility], TALHA Pablo Ot Z88 .8 ALLERGY STATUS TO [facility] DRUG/MEDS/BIOL SUB 11/17/2019 [facility], TALHA Pablo Ot Z90.49 ACQUIRED ABSENCE OF OTHER SPECIFIED PART Procedures There is no data. Results Test Result Range PDM - 09 PANEL (PROFILE 1) - 07/03/18 10 :51 Prescribed Drug 1 Fentanyl NRG Creatinine 144.1 mg/dL > or = 20.0 pH 7.41 4.5 - 9.0 Oxidant NEGATIVE mcg/mL <200 Amphetamines NEGATIVE ng/mL <500 medMATCH Amphetamines CONSISTENT NRG Benzodiazepines POSITIVE ng/mL <100 Marijuana Metabolite POSITIVE ng/mL <20 Cocaine Metabolite NEGATIVE ng/mL <150 medMATCH Cocaine Metab CONSISTENT NRG Opiates POSITIVE ng/mL <100 Oxycodone NEGATIVE ng/mL <100 medMATCH Oxycodone INCONSISTENT NRG COMMENT NRG Alphahydroxyalprazolam NEGATIVE ng/mL <25 medMATCH aOH alprazolam CONSISTENT NRG Alphahydroxymidazolam NEGATIVE ng/mL < 50 medMATCH aOH midazolam CONSISTENT NRG Alphahydroxytriazolam NEGATIVE ng/mL < 50 medMATCH aOH triazolam CONSISTENT NRG Aminoclonazepam NEGATIVE ng/mL <25 medMATCH Aminoclonazepam CONSISTENT NRG Hydroxyethylflurazepam NEGATIVE ng/mL <50 medMATCH [place],Et flurazepam CONSISTENT NR G Lorazepam NEGATIVE ng/mL <50 medMATCH Lorazepam CONSISTENT [...] Norhydrocodone 99 ng/mL <50 medMATCH Norhydrocodone INCONSISTENT NR G Prescribed Drug 2 Oxycodone NRG Marijuana Metabolite 25 ng/mL <5 medMATCH Marijuana Metab INCONSISTENT N RG Barbiturates NEGATIVE ng/mL <300 medMATCH Barbiturates CONSISTENT NRG Methadone Metabolite NEGATIVE ng/mL <100 medMATCH Methadone Metab CONSISTENT NRG Phencyclidine NEGATIVE ng/mL <25 medMATCH Phencyclidine CONSISTENT NRG LIPASE - 12/05/18 14:20 LIPASE 91 U/L 7-60 LIPASE - 01/10/19 08:36 LIPASE 32 U/L 7-60 Blood CBC with ordered manual differenti al panel - 02/15/19 13:09 Blood leukocytes automated count (number/volume) 19.2 10*3/uL 4.3-11.0 Blood erythrocytes automated count (number/volume) 4.86 10*6/uL 4.35-5.85 Venous blood hemoglobin measurement (mass/volume) 14.8 g/dL 13.3-17.7 Blood hematocrit (volume fraction) 43 % 40-54 Automated erythrocyte mean corpuscular volume 88 [ foz_us] 80-99 Automated erythrocyte mean corpuscular h emoglobin (mass per erythrocyte) 30 pg 25-34 Automated erythrocyte mean corpuscular h emoglobin concentration measurement (mass/volume) 35 g/dL 32-36 Automated erythrocyte distribution width ratio 13. 1 % 10.0- 14.5 Automated blood platelet count (count/volume) 251 10*3/uL 130-400 Automated blood platelet mean volume measurement 10.8 [foz_us] 7.4-10.4 Automated blood neutrophils/100 leukocytes 90 % 42-75 Automated blood lymphocytes/100 leukocytes 5 % 12-44 Blood monocytes/100 leukocytes 4 % NRG Automated blood eosinophils/100 leukocytes 0 % 0-10 Automated blood basophils/100 leukocytes 0 % 0-10 Blood neutrophils automated count (number/volume) 17.3 10*3 1.8-7.8 Blood lymphocytes automated count (number/volume) 1.0 10*3 1.0-4.0 Blood monocytes automated count (number/volume) 0. 9 10*3 0.0-1.0 Automated eosinophil count 0.1 10*3/uL 0 .0-0.3 Automated blood basophil count (count/volume) 0.0 10*3/uL 0.0-0.1 Manual blood segmented neutrophils/100 leukocytes 93 % NRG Blood band neutrophils/100 leukocytes 1 % NRG Manual blood lymphocytes/100 leukocytes 2 % NRG Manual eosinophils/100 leukocytes in nose 0 % NRG Manual blood basophils/100 leukocytes 0 % NRG Comprehensive metabolic panel - 02/15/19 13:09 Serum or plasma sodium measurement (moles/volume) 138 mmol/L 135-145 Serum or plasma potassium measurement (moles/volume) 3.8 mmol/L 3.6-5.0 Serum or plasma chloride measurement (moles/volume) 99 mmol/L 98-107 Carbon dioxide 28 mmol/L 21-32 Serum or plasma anion gap determination (moles/volume) 11 mmol/L 5-14 Serum or plasma urea nitrogen measurement (mass/volume ) 18 mg/dL 7-18 Serum or plasma creatinine measurement (mass/volume) 0.97 mg/dL 0.60-1.30 Serum or plasma urea nitrogen/creatinine mass ratio 19 NRG Serum or plasma creatinine measurement w ith calculation of estimated glomerular filtration rate > NRG Serum or plasma glucose measurement (mass/volume) 214 mg/dL 70-105 Serum or plasma calcium measurement (mass/volume) 9.2 mg/dL 8.5-10.1 Serum or plasma total bilirubin measurement (mass/volu me) 1.0 mg/dL 0.1-1.0 Serum or plasma alkaline phosphatase kiana surement (enzymatic activity/volume) 81 U/L 40-136 Serum or plasma aspartate aminotransfera se measurement (enzymatic activity/volume) 22 U/L 5-34 Serum or plasma alanine aminotransferase measurement (enzymatic activity/volume) 15 U/L 0-55 Serum or plasma protein measurement (mass/volume) 7.2 g/dL 6.4-8.2 Serum or plasma albumin measurement (mass/volume) 4.6 g/dL 3.2-4.5 Lipase - 02/15/19 13:09 Lipase 57 U/L 8-78 Complete blood count (CBC) with automate d white blood cell (WBC) differential - 02/25/19 11:04 Blood leukocytes automated count (number/volume) 27.2 10*3/uL 4.3-11.0 Blood erythrocytes automated count (number/volume) 4.95 10*6/uL 4.35-5.85 Venous blood hemoglobin measurement (mass/volume) 15.2 g/dL 13.3-17.7 Blood hematocrit (volume fraction) 43 % 40-54 Automated erythrocyte mean corpuscular volume 87 [ foz_us] 80-99 Automated erythrocyte mean corpuscular h emoglobin (mass per erythrocyte) 31 pg 25-34 Automated erythrocyte mean corpuscular h emoglobin concentration measurement (mass/volume) 35 g/dL 32-36 Automated erythrocyte distribution width ratio 12. 6 % 10.0- 14.5 Automated blood platelet count (count/volume) 299 10*3/uL 130-400 Automated blood platelet mean volume measurement 11.2 [foz_us] 7.4-10.4 Automated blood neutrophils/100 leukocytes 86 % 42-75 Automated blood lymphocytes/100 leukocytes 9 % 12-44 Blood monocytes/100 leukocytes 4 % 0-12 Automated blood eosinophils/100 leukocytes 1 % 0-10 Automated blood basophils/100 leukocytes 0 % 0-10 Blood neutrophils automated count (number/volume) 23.3 10*3 1.8-7.8 Blood lymphocytes automated count (number/volume) 2.3 10*3 1.0-4.0 Blood monocytes automated count (number/volume) 1. 1 10*3 0.0-1.0 Automated eosinophil count 0.4 10*3/uL 0 .0-0.3 Automated blood basophil count (count/volume) 0.1 10*3/uL 0.0-0.1 Comprehensive metabolic panel - 02/25/19 11:04 Serum or plasma sodium measurement (moles/volume) 137 mmol/L 135-145 Serum or plasma potassium measurement (moles/volume) 3.8 mmol/L 3.6-5.0 Serum or plasma chloride measurement (moles/volume) 98 mmol/L 98-107 Carbon dioxide 23 mmol/L 21-32 Serum or plasma anion gap determination (moles/volume) 16 mmol/L 5-14 Serum or plasma urea nitrogen measurement (mass/volume ) 14 mg/dL 7-18 Serum or plasma creatinine measurement (mass/volume) 1.00 mg/dL 0.60-1.30 Serum or plasma urea nitrogen/creatinine mass ratio 14 NRG Serum or plasma creatinine measurement w ith calculation of estimated glomerular filtration rate > NRG Serum or plasma glucose measurement (mass/volume) 188 mg/dL 70-105 Serum or plasma calcium measurement (mass/volume) 9.4 mg/dL 8.5-10.1 Serum or plasma total bilirubin measurement (mass/volu me) 0.4 mg/dL 0.1-1.0 Serum or plasma alkaline phosphatase kiana surement (enzymatic activity/volume) 102 U/L 40-136 Serum or plasma aspartate aminotransfera se measurement (enzymatic activity/volume) 28 U/L 5-34 Serum or plasma alanine aminotransferase measurement (enzymatic activity/volume) 25 U/L 0-55 Serum or plasma protein measurement (mass/volume) 7.4 g/dL 6.4-8.2 Serum or plasma albumin measurement (mass/volume) 4.7 g/dL 3.2-4.5 Manual absolute plasma cell count - 02/16 11:04 Blood monocytes/100 leukocytes 3 % NRG Manual blood segmented neutrophils/100 leukocytes 76 % NRG Blood band neutrophils/100 leukocytes 11 % NRG Manual blood lymphocytes/100 leukocytes 9 % NRG Manual eosinophils/100 leukocytes in nose 1 % NRG Blood erythrocyte morphology finding identification NORMAL NR Lipase - 02/25/19 11:04 Lipase 547 U/L 8-78 Complete blood count (CBC) with automate d white blood cell (WBC) differential - 05/17/19 10:36 Blood leukocytes automated count (number/volume) 11.2 10*3/uL 4.3-11.0 Blood erythrocytes automated count (number/volume) 5.18 10*6/uL 4.35-5.85 Venous blood hemoglobin measurement (mass/volume) 15.6 g/dL 13.3-17.7 Blood hematocrit (volume fraction) 46 % 40-54 Automated erythrocyte mean corpuscular volume 89 [ foz_us] 80-99 Automated erythrocyte mean corpuscular h emoglobin (mass per erythrocyte) 30 pg 25-34 Automated erythrocyte mean corpuscular h emoglobin concentration measurement (mass/volume) 34 g/dL 32-36 Automated erythrocyte distribution width ratio 12. 7 % 10.0- 14.5 Automated blood platelet count (count/volume) 206 10*3/uL 130-400 Automated blood platelet mean volume measurement 10.7 [foz_us] 7.4-10.4 Automated blood neutrophils/100 leukocytes 78 % 42-75 Automated blood lymphocytes/100 leukocytes 15 % 12-44 Blood monocytes/100 leukocytes 4 % 0-12 Automated blood eosinophils/100 leukocytes 3 % 0-10 Automated blood basophils/100 leukocytes 0 % 0-10 Blood neutrophils automated count (number/volume) 8.7 10*3 1.8-7.8 Blood lymphocytes automated count (number/volume) 1.7 10*3 1.0-4.0 Blood monocytes automated count (number/volume) 0. 5 10*3 0.0-1.0 Automated eosinophil count 0.3 10*3/uL 0 .0-0.3 Automated blood basophil count (count/volume) 0.0 10*3/uL 0.0-0.1 Comprehensive metabolic panel - 05/17/19 10:36 Serum or plasma sodium measurement (moles/volume) 141 mmol/L 135-145 Serum or plasma potassium measurement (moles/volume) 4.1 mmol/L 3.6-5.0 Serum or plasma chloride measurement (moles/volume) 99 mmol/L 98-107 Carbon dioxide 28 mmol/L 21-32 Serum or plasma anion gap determination (moles/volume) 14 mmol/L 5-14 Serum or plasma urea nitrogen measurement (mass/volume ) 11 mg/dL 7-18 Serum or plasma creatinine measurement (mass/volume) 1.11 mg/dL 0.60-1.30 Serum or plasma urea nitrogen/creatinine mass ratio 10 NRG Serum or plasma creatinine measurement w ith calculation of estimated glomerular filtration rate > NRG Serum or plasma glucose measurement (mass/volume) 115 mg/dL 70-105 Serum or plasma calcium measurement (mass/volume) 9.6 mg/dL 8.5-10.1 Serum or plasma total bilirubin measurement (mass/volu me) 0.6 mg/dL 0.1-1.0 Serum or plasma alkaline phosphatase kiana surement (enzymatic activity/volume) 90 U/L 40-136 Serum or plasma aspartate aminotransfera se measurement (enzymatic activity/volume) 22 U/L 5-34 Serum or plasma alanine aminotransferase measurement (enzymatic activity/volume) 15 U/L 0-55 Serum or plasma protein measurement (mass/volume) 7.5 g/dL 6.4-8.2 Serum or plasma albumin measurement (mass/volume) 4.7 g/dL 3.2-4.5 Lipase - 05/17/19 10:36 Lipase 613 U/L 8-78 Complete blood count (CBC) with automate d white blood cell (WBC) differential - 05/28/19 05:46 Blood leukocytes automated count (number/volume) 21.5 10*3/uL 4.3-11.0 Blood erythrocytes automated count (number/volume) 5.13 10*6/uL 4.35-5.85 Venous blood hemoglobin measurement (mass/volume) 15.8 g/dL 13.3-17.7 Blood hematocrit (volume fraction) 45 % 40-54 Automated erythrocyte mean corpuscular volume 88 [ foz_us] 80-99 Automated erythrocyte mean corpuscular h emoglobin (mass per erythrocyte) 31 pg 25-34 Automated erythrocyte mean corpuscular h emoglobin concentration measurement (mass/volume) 35 g/dL 32-36 Automated erythrocyte distribution width ratio 12. 6 % 10.0- 14.5 Automated blood platelet count (count/volume) 251 10*3/uL 130-400 Automated blood platelet mean volume measurement 10.9 [foz_us] 7.4-10.4 Automated blood neutrophils/100 leukocytes 88 % 42-75 Automated blood lymphocytes/100 leukocytes 5 % 12-44 Blood monocytes/100 leukocytes 5 % 0-12 Automated blood eosinophils/100 leukocytes 2 % 0-10 Automated blood basophils/100 leukocytes 0 % 0-10 Blood neutrophils automated count (number/volume) 18.9 10*3 1.8-7.8 Blood lymphocytes automated count (number/volume) 1.2 10*3 1.0-4.0 Blood monocytes automated count (number/volume) 1. 0 10*3 0.0-1.0 Automated eosinophil count 0.4 10*3/uL 0 .0-0.3 Automated blood basophil count (count/volume) 0.1 10*3/uL 0.0-0.1 Manual absolute plasma cell count - 05/19 05:46 Blood monocytes/100 leukocytes 3 % NRG Manual blood segmented neutrophils/100 leukocytes 74 % NRG Blood band neutrophils/100 leukocytes 15 % NRG Manual blood lymphocytes/100 leukocytes 5 % NRG Manual eosinophils/100 leukocytes in nose 3 % NRG Blood erythrocyte morphology finding identification NORMAL [facility] Comprehensive metabolic panel - 05/28/19 05:46 Serum or plasma sodium measurement (moles/volume) 137 mmol/L 135-145 Serum or plasma potassium measurement (moles/volume) 3.7 mmol/L 3.6-5.0 Serum or plasma chloride measurement (moles/volume) 98 mmol/L 98-107 Carbon dioxide 24 mmol/L 21-32 Serum or plasma anion gap determination (moles/volume) 15 mmol/L 5-14 Serum or plasma urea nitrogen measurement (mass/volume ) 19 mg/dL 7-18 Serum or plasma creatinine measurement (mass/volume) 1.03 mg/dL 0.60-1.30 Serum or plasma urea nitrogen/creatinine mass ratio 18 NRG Serum or plasma creatinine measurement w ith calculation of estimated glomerular filtration rate > NRG Serum or plasma glucose measurement (mass/volume) 217 mg/dL 70-105 Serum or plasma calcium measurement (mass/volume) 9.5 mg/dL 8.5-10.1 Serum or plasma total bilirubin measurement (mass/volu me) 1.1 mg/dL 0.1-1.0 Serum or plasma alkaline phosphatase kiana surement (enzymatic activity/volume) 85 U/L 40-136 Serum or plasma aspartate aminotransfera se measurement (enzymatic activity/volume) 23 U/L 5-34 Serum or plasma alanine aminotransferase measurement (enzymatic activity/volume) 16 U/L 0-55 Serum or plasma protein measurement (mass/volume) 7.5 g/dL 6.4-8.2 Serum or plasma albumin measurement (mass/volume) 4.8 g/dL 3.2-4.5 Serum or plasma troponin i.cardiac measu rement (mass/volume) - 05/28/19 05:46 Serum or plasma troponin i.cardiac measurement (mass/v olume) < ng/mL <0.30 Lipase - 05/28/19 05:46 Lipase 665 U/L 8-78 Stool leukocytes detection by light micr oscopy - 05/28/19 06:47 FECAL WBC RESULTS OCCASIONAL WBC OBSERVED ON DIREC T SMEAR NRG FECAL NOTE FECAL LEUKOCYTES MAY BE INTE RMITTENTLY PRESENT OR NRG FECAL NOTE UNEVENLY DISTRIBUTED IN STOO L SPECIMENS, AND WBC NRG FECAL NOTE MORPHOLOGY DEGRADES DURING TRANSPORT NRG FECAL NOTE NOTE: NRG C DIFFICILE AG + TOXIN A/B. - 05/28/19 0 6:47 RESULTS NEGATIVE FOR ANTIGEN AND TOXIN A/B NRG Stool bacteria identification by culture - 05/28/19 06:47 Complete blood count (CBC) with automate d white blood cell (WBC) differential - 07/02/19 08:15 Blood leukocytes automated count (number/volume) 7.7 10*3/uL 4.3-11.0 Blood erythrocytes automated count (number/volume) 4.96 10*6/uL 4.35-5.85 Venous blood hemoglobin measurement (mass/volume) 15.2 g/dL 13.3-17.7 Blood hematocrit (volume fraction) 44 % 40-54 Automated erythrocyte mean corpuscular volume 89 [ foz_us] 80-99 Automated erythrocyte mean corpuscular h emoglobin (mass per erythrocyte) 31 pg 25-34 Automated erythrocyte mean corpuscular h emoglobin concentration measurement (mass/volume) 34 g/dL 32-36 Automated erythrocyte distribution width ratio 13. 0 % 10.0- 14.5 Automated blood platelet count (count/volume) 182 10*3/uL 130-400 Automated blood platelet mean volume measurement 10.7 [foz_us] 7.4-10.4 Automated blood neutrophils/100 leukocytes 72 % 42-75 Automated blood lymphocytes/100 leukocytes 20 % 12-44 Blood monocytes/100 leukocytes 4 % 0-12 Automated blood eosinophils/100 leukocytes 4 % 0-10 Automated blood basophils/100 leukocytes 0 % 0-10 Blood neutrophils automated count (number/volume) 5.5 10*3 1.8-7.8 Blood lymphocytes automated count (number/volume) 1.5 10*3 1.0-4.0 Blood monocytes automated count (number/volume) 0. 3 10*3 0.0-1.0 Automated eosinophil count 0.3 10*3/uL 0 .0-0.3 Automated blood basophil count (count/volume) 0.0 10*3/uL 0.0-0.1 Comprehensive metabolic panel - 07/02/19 08:15 Serum or plasma sodium measurement (moles/volume) 140 mmol/L 135-145 Serum or plasma potassium measurement (moles/volume) 3.7 mmol/L 3.6-5.0 Serum or plasma chloride measurement (moles/volume) 102 mmol/L 98-107 Carbon dioxide 27 mmol/L 21-32 Serum or plasma anion gap determination (moles/volume) 11 mmol/L 5-14 Serum or plasma urea nitrogen measurement (mass/volume ) 13 mg/dL 7-18 Serum or plasma creatinine measurement (mass/volume) 1.00 mg/dL 0.60-1.30 Serum or plasma urea nitrogen/creatinine mass ratio 13 NRG Serum or plasma creatinine measurement w ith calculation of estimated glomerular filtration rate > NRG Serum or plasma glucose measurement (mass/volume) 130 mg/dL 70-105 Serum or plasma calcium measurement (mass/volume) 9.4 mg/dL 8.5-10.1 Serum or plasma total bilirubin measurement (mass/volu me) 1.2 mg/dL 0.1-1.0 Serum or plasma alkaline phosphatase kiana surement (enzymatic activity/volume) 85 U/L 40-136 Serum or plasma aspartate aminotransfera se measurement (enzymatic activity/volume) 28 U/L 5-34 Serum or plasma alanine aminotransferase measurement (enzymatic activity/volume) 22 U/L 0-55 Serum or plasma protein measurement (mass/volume) 7.3 g/dL 6.4-8.2 Serum or plasma albumin measurement (mass/volume) 4.7 g/dL 3.2-4.5 Serum or plasma amylase measurement (enz ymatic activity/volume) - 07/02/19 08:15 Serum or plasma amylase measurement (enzymatic activit y/volume) 48 U/L 25-125 Lipase - 07/02/19 08:15 Lipase 20 U/L 8-78 Serum ragweed IgE antibody assay - 07/02 08:15 Serum ragweed IgE antibody assay 19.8 % 3.7-19.4 Complete blood count (CBC) with automate d white blood cell (WBC) differential - 11/11/19 10:00 Blood leukocytes automated count (number/volume) 17.5 10*3/uL 4.3-11.0 Blood erythrocytes automated count (number/volume) 4.89 10*6/uL 4.35-5.85 Venous blood hemoglobin measurement (mass/volume) 15.2 g/dL 13.3-17.7 Blood hematocrit (volume fraction) 42 % 40-54 Automated erythrocyte mean corpuscular volume 87 [ foz_us] 80-99 Automated erythrocyte mean corpuscular h emoglobin (mass per erythrocyte) 31 pg 25-34 Automated erythrocyte mean corpuscular h emoglobin concentration measurement (mass/volume) 36 g/dL 32-36 Automated erythrocyte distribution width ratio 13. 2 % 10.0- 14.5 Automated blood platelet count (count/volume) 305 10*3/uL 130-400 Automated blood platelet mean volume measurement 10.8 [foz_us] 7.4-10.4 Automated blood neutrophils/100 leukocytes 77 % 42-75 Automated blood lymphocytes/100 leukocytes 16 % 12-44 Blood monocytes/100 leukocytes 5 % 0-12 Automated blood eosinophils/100 leukocytes 2 % 0-10 Automated blood basophils/100 leukocytes 0 % 0-10 Blood neutrophils automated count (number/volume) 13.4 10*3 1.8-7.8 Blood lymphocytes automated count (number/volume) 2.9 10*3 1.0-4.0 Blood monocytes automated count (number/volume) 0. 8 10*3 0.0-1.0 Automated eosinophil count 0.4 10*3/uL 0 .0-0.3 Automated blood basophil count (count/volume) 0.1 10*3/uL 0.0-0.1 Comprehensive metabolic panel - 11/11/19 10:00 Serum or plasma sodium measurement (moles/volume) 138 mmol/L 135-145 Serum or plasma potassium measurement (moles/volume) 4.1 mmol/L 3.6-5.0 Serum or plasma chloride measurement (moles/volume) 101 mmol/L 98-107 Carbon dioxide 20 mmol/L 21-32 Serum or plasma anion gap determination (moles/volume) 17 mmol/L 5-14 Serum or plasma urea nitrogen measurement (mass/volume ) 15 mg/dL 7-18 Serum or plasma creatinine measurement (mass/volume) 0.91 mg/dL 0.60-1.30 Serum or plasma urea nitrogen/creatinine mass ratio 16 NRG Serum or plasma creatinine measurement w ith calculation of estimated glomerular filtration rate > NRG Serum or plasma glucose measurement (mass/volume) 217 mg/dL 70-105 Serum or plasma calcium measurement (mass/volume) 9.7 mg/dL 8.5-10.1 Serum or plasma total bilirubin measurement (mass/volu me) 0.9 mg/dL 0.1-1.0 Serum or plasma alkaline phosphatase kiana surement (enzymatic activity/volume) 89 U/L 40-136 Serum or plasma aspartate aminotransfera se measurement (enzymatic activity/volume) 31 U/L 5-34 Serum or plasma alanine aminotransferase measurement (enzymatic activity/volume) 26 U/L 0-55 Serum or plasma protein measurement (mass/volume) 7.6 g/dL 6.4-8.2 Serum or plasma albumin measurement (mass/volume) 4.7 g/dL 3.2-4.5 Lipase - 11/11/19 10:00 Lipase 22 U/L 8-78 Manual absolute plasma cell count - 10/20 01/05 10:00 Blood monocytes/100 leukocytes 5 % NRG Manual blood segmented neutrophils/100 leukocytes 74 % NRG Blood band neutrophils/100 leukocytes 3 % NRG Manual blood lymphocytes/100 leukocytes 17 % NRG Manual eosinophils/100 leukocytes in nose 1 % NRG Blood erythrocyte morphology finding identification NORMAL NRG Encounters ACCT No. Visit Date/Time Discharge Status Pt. Type Provider Facility Loc./Unit Complaint [id number] 08/12/2019 14:40:00 08/12/2019 23:59: 59 [facility] Outpatient SHARA REDDY [facility] [id number] 01/10/2019 08:30:00 Document Registration [id number] 12/05/2018 13:20:00 Document Registration [id number] 07/03/2018 11:20:00 Document Registration [id number] 11/11/2019 09:41:00 020 17:38:00 DIS Outpatient TALHA SAL DO [facility] FS VOMITING [id number] 07/02/2019 08:05:00 23:59:59 CLS Outpatient UTECH, AME AGUILERA [facility] LAB FS R10.9 G89.29 K85.90 [id number] 05/28/2019 05:37:00 15:40:00 DIS Emergency FADY HOWELL MD Via [facility] ER FS NAUSEA VOMITING [id number] 05/17/2019 10:21:00 12:40:00 DIS Emergency JAYA ZAVALA DO Via [facility] ER FS VOMITING [id number] 02/25/2019 10:44:00 17:30:00 DIS Emergency CHRIS PATEL, ALYSHA Zelaya Via [facility] ER FS VOMITING NAUS EA [id number] 02/15/2019 11:41:00 17:27:00 DIS Emergency ANNI BARRETT DO Via [facility] ER FS N V; ABD PAIN [id number] 01/07/2020 10:10:[address] Emergency CHADWICK JENKINS DO Via [facility] ER FS ABD PAIN,N/V
== END 2020-01-07 15:30 | disposition short-term general hospital (02) ==
LOC: EDUNIT# 10:08 → ER FS 10:10
DX: E86.0 Dehydration (principal); G43.A0 Cyclical vomiting, in migraine, not intractable; E87.2 Acidosis; J45.909 Unspecified asthma, uncomplicated; K58.9 Irritable bowel syndrome, unspecified; M54.9 Dorsalgia, unspecified; K83.09 Other cholangitis; G89.29 Other chronic pain; Z79.899 Other long term (current) drug therapy
CPT/HCPCS: 36415; 80053; 82150; 83605; 83690; 85007; 85027; 87040

== ENCOUNTER 2020-02-21 09:27 | Emergency (ER) | payer MEDICAID ==
[~2020-02-21] VITALS: Ht 175 cm; Wt 82.0 kg
[2020-02-21] MEDS ORDERED: LACTATED RINGERS 1,000 ML IV SCH (09:45)
--- NOTE | 2020-02-21 09:56 | NUR ---
Called patient's company again for information on what they require for workman's comp. Staff states they will contact their safety department again.
--- OUTSIDE RECORDS SUMMARY | 2020-02-21 09:57 | XMS REPORT | Continuity of Care Document ---
Author Organization Unknown Address Unknown Phone Unavailable Allergies Active Description Code Type Severity Reaction Onset Reported/Identified Relationship to Patient Clinical Status Yes citalopram hydrobromide [id number] Drug Allergy Unknown NAUSEA 02/15/2019 Yes dicyclomine [id number] Drug Aller gy Unknown nausea and vomi 02/15/2019 Yes paroxetine [id number] Drug Allerg y Unknown nausea and vomi 02/15/2019 Yes prochlorperazine [id number] Drug Allergy Unknown muscle pain 02/15/2019 Medications [...] ACUTE PANCREATITIS WITHOUT NECROSIS [facility] D[facility].829 ELEVATED WHITE BLOOD CELL COUNT, UNSPECI 11/11/2019 [facility] R10.11 RIGHT UPPER QUADRANT PAIN 11/11/[facility] R10.13 EPIGASTRIC PAIN 11/11/2019 [facility] R11 .2 NAUSEA WITH VOMITING, UNSPECIFIED 11/11/2019 [facility] Z88 .8 ALLERGY STATUS TO OT DRUG/MEDS/BIOL SUB 11/11/2019 [facility] Z90.49 ACQUIRED ABSENCE OF OTHER SPECIFIED PART 11/17/2019 [facility] D72.829 ELEVATED WHITE BLOOD CELL COUNT, UNSPECI 11/17/2019 [facility] Ot R10.11 RIGHT UPPER QUADRANT PAIN 11/17/2019 [facility] R10.13 EPIGASTRIC PAIN 11/17/2019 [facility] R11 .2 NAUSEA WITH VOMITING, UNSPECIFIED 11/17/2019 [facility] Z88 .8 ALLERGY STATUS TO OT DRUG/MEDS/BIOL SUB 11/17/2019 [facility] Z90.49 ACQUIRED ABSENCE OF OTHER SPECIFIED PART 01/07/2020 CHADWICK JENKINS DO Ot E86. 0 DEHYDRATION 01/07/2020 CHADWICK JENKINS DO Ot E87. 2 ACIDOSIS 01/07/2020 CHADWICK JENKINS DO Ot G43. A0 CYCLICAL VOMITING, IN MIGRAINE, NOT INTR 01/07/2020 CHADWICK JENKINS DO Ot G89. 29 OTHER CHRONIC PAIN 01/07/2020 CHADWICK JENKINS DO Ot J45.909 UNSPECIFIED ASTHMA, UNCOMPLICATED 01/07/2020 CHADWICK JENKINS DO Ot K58. 9 IRRITABLE BOWEL SYNDROME WITHOUT DIARRHE 01/07/2020 CHADWICK JENKINS DO Ot K83. 09 OTHER CHOLANGITIS 01/07/2020 CHADWICK JENKINS DO Ot M54. 9 DORSALGIA, UNSPECIFIED 01/07/2020 CHADWICK JENKINS DO Ot R11. 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 0 DEHYDRATION 01/08/2020 ALICE LAST CHADWICK B Ot E87. 2 ACIDOSIS 01/08/2020 ALICE LAST CHADWICK B Ot G43. A0 CYCLICAL VOMITING, IN MIGRAINE, NOT INTR 01/08/2020 CHADWICK JENKINS DO Ot G89. 29 OTHER CHRONIC PAIN 01/08/2020 ALICE LAST CHADWICK B Ot J45.909 UNSPECIFIED ASTHMA, UNCOMPLICATED 01/08/2020 ALICE LAST CHADWICK B Ot K58. 9 IRRITABLE BOWEL SYNDROME WITHOUT DIARRHE 01/08/2020 ALICE LAST CHADWICK B Ot K83. 09 OTHER CHOLANGITIS 01/08/2020 ALICE LAST CHADWICK B Ot M54. 9 DORSALGIA, UNSPECIFIED 01/08/2020 ALICE LAST CHADWICK B Ot R11. 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 Results Test [...] Blood erythrocyte morphology finding identification NORMAL NRG Lipase - 02/25/19 11:04 Lipase 547 U/L [...] Blood erythrocyte morphology finding identification NORMAL NR Comprehensive metabolic panel - 05/28/19 05:46 Serum [...] mg/dL 0.1-1.0 Serum or plasma alkaline phosphatase ikana surement (enzymatic activity/volume) 89 U/L 40-136 Serum [...] Blood erythrocyte morphology finding identification NORMAL NRG Complete blood count (CBC) with automate d white blood cell (WBC) differential - 01/07/20 10:14 Blood leukocytes automated count (number/volume) 28.5 10*3/uL 4.3-11.0 Blood erythrocytes automated count (number/volume) 4.86 10*6/uL 4.35-5.85 Venous blood hemoglobin measurement (mass/volume) 15.0 g/dL 13.3-17.7 Blood hematocrit (volume fraction) 43 % 40-54 Automated erythrocyte mean corpuscular volume 87 [ foz_us] 80-99 Automated erythrocyte mean corpuscular h emoglobin (mass per erythrocyte) 31 pg 25-34 Automated erythrocyte mean corpuscular h emoglobin concentration measurement (mass/volume) 35 g/dL 32-36 Automated erythrocyte distribution width ratio 12. 9 % 10.0- 14.5 Automated blood platelet count (count/volume) 376 10*3/uL 130-400 Automated blood platelet mean volume measurement 11.1 [foz_us] 7.4-10.4 Automated blood neutrophils/100 leukocytes 80 % 42-75 Automated blood lymphocytes/100 leukocytes 14 % 12-44 Blood monocytes/100 leukocytes 5 % 0-12 Automated blood eosinophils/100 leukocytes 1 % 0-10 Automated blood basophils/100 leukocytes 0 % 0-10 Blood neutrophils automated count (number/volume) 22.7 10*3 1.8-7.8 Blood lymphocytes automated count (number/volume) 3.8 10*3 1.0-4.0 Blood monocytes automated count (number/volume) 1. 2 10*3 0.0-1.0 Automated eosinophil count 0.3 10*3/uL 0 .0-0.3 Automated blood basophil count (count/volume) 0.1 10*3/uL 0.0-0.1 Manual absolute plasma cell count - 12/18 10/07 10:14 Blood monocytes/100 leukocytes 3 % NRG Manual blood segmented neutrophils/100 leukocytes 76 % NRG Blood band neutrophils/100 leukocytes 4 % NRG Manual blood lymphocytes/100 leukocytes 14 % NRG Manual eosinophils/100 leukocytes in nose 2 % NRG Manual blood basophils/100 leukocytes 0 % NRG Manual blood metamyelocytes/100 leukocytes 1 % NRG Comprehensive metabolic panel - 01/07/20 10:14 Serum or plasma sodium measurement (moles/volume) 138 mmol/L 135-145 Serum or plasma potassium measurement (moles/volume) 4.0 mmol/L 3.6-5.0 Serum or plasma chloride measurement (moles/volume) 99 mmol/L 98-107 Carbon dioxide 19 mmol/L 21-32 Serum or plasma anion gap determination (moles/volume) 20 mmol/L 5-14 Serum or plasma urea nitrogen measurement (mass/volume ) 18 mg/dL 7-18 Serum or plasma creatinine measurement (mass/volume) 0.89 mg/dL 0.60-1.30 Serum or plasma urea nitrogen/creatinine mass ratio 20 NRG Serum or plasma creatinine measurement w ith calculation of estimated glomerular filtration rate > NRG Serum or plasma glucose measurement (mass/volume) 251 mg/dL 70-105 Serum or plasma calcium measurement (mass/volume) 9.5 mg/dL 8.5-10.1 Serum or plasma total bilirubin measurement (mass/volu me) 0.5 mg/dL 0.1-1.0 Serum or plasma alkaline phosphatase kiana surement (enzymatic activity/volume) 94 U/L 40-136 Serum or plasma aspartate aminotransfera se measurement (enzymatic activity/volume) 27 U/L 5-34 Serum or plasma alanine aminotransferase measurement (enzymatic activity/volume) 22 U/L 0-55 Serum or plasma protein measurement (mass/volume) 7.3 g/dL 6.4-8.2 Serum or plasma albumin measurement (mass/volume) 4.6 g/dL 3.2-4.5 Serum or plasma amylase measurement (enz ymatic activity/volume) - 01/07/20 10:14 Serum or plasma amylase measurement (enzymatic activit y/volume) 107 U/L 25-125 Lipase - 01/07/20 10:14 Lipase 66 U/L 8-78 Blood lactic acid measurement (moles/vol ume) - 01/07/20 11:50 Blood lactic acid measurement (moles/volume) 5.66 mmol/L 0.50-2.00 Bacterial blood culture - 01/07/20 11:50 Bacterial blood culture NG NRG Serum or plasma lactate measurement (mol es/volume) - 01/07/20 13:25 Serum or plasma lactate measurement (moles/volume) 3.91 mmol/L 0.50-2.00 Encounters ACCT No. Visit Date/Time Discharge Status Pt. Type Provider Facility Loc./Unit Complaint [id number] 02/17/2020 14:30:00 02/17/2020 23:59: 59 CLS Outpatient SHARA REDDY [facility] [id number] 01/10/2019 08:30:00 Document Registration [id number] 12/05/2018 13:20:00 Document Registration [id number] 07/03/2018 11:20:00 Document Registration [id number] 01/07/2020 10:10:00 020 15:30:00 DIS Emergency CHADWICK JENKINS DO Via [facility] ER FS ABD PAIN,N/V [id number] 11/11/2019 09:41:00 020 17:38:00 DIS Emergency TALHA SAL DO [facility] ER FS VOMITING [id number] 07/02/2019 08:05:00 23:59:59 CLS Outpatient AME KO APRN [facility] LAB FS R10.9 G89.29 K85.90 [id number] 05/28/2019 05:37:00 15:40:00 DIS Emergency FADY HOWELL MD [facility] ER FS NAUSEA VOMITING [id number] 05/17/2019 10:21:00 12:40:00 DIS Emergency JAYA ZAVALA DO [facility] ER FS VOMITING [id number] 02/25/2019 10:44:00 17:30:00 DIS Emergency CHRIS PATEL, ALYSHA Zelaya [facility] ER FS VOMITING NAUS EA [id number] 02/15/2019 11:41:00 17:27:00 DIS Emergency ANNI BARRETT DO [facility] ER FS N V; ABD PAIN
[2020-02-21] MEDS ORDERED: ONDANSETRON 4 MG/2 ML (SDV) Z0FRAN IVP ONE (10:00)
[2020-02-21] MEDS ORDERED: fentaNYL INJECTION 100 MCG/2 ML AMP IVP ONE ×2 (10:00→12:45)
--- NOTE | 2020-02-21 10:07 | Diagnostic Imaging Report ---
INDICATION: Pain FINDINGS: Elevation of the right hemidiaphragm. There are clips at the gallbladder fossa. There is no abnormal fecal loading. No evidence for bowel obstruction. IMPRESSION: No acute appearing abnormality. Dictated by: Dictated on workstation # [id number]
[2020-02-21 10:10] LABS: EOSINOPHILS % (AUTO) 2 % (0-10); HEMATOCRIT 40 % (40-54); HEMOGLOBIN 14.1 G/DL (13.3-17.7); LYMPHOCYTES % (AUTO) 13 % (12-44); MEAN CORPUSCULAR HEMOGLOBIN 31 PG (25-34); MEAN CORPUSCULAR HGB CONC 35 G/DL (32-36); MEAN CORPUSCULAR VOLUME 89 FL (80-99); MONOCYTES % (AUTO) 5 % (0-12); PLATELET COUNT 278 10^3/uL (130-400); RED CELL DISTRIBUTION WIDTH 12.6 % (10.0-14.5); WHITE BLOOD COUNT 23.4 10^3/uL (4.3-11.0)
[2020-02-21 10:11] LABS: BASOPHILS # (AUTO) 0.1 10^3/uL (0.0-0.1); BASOPHILS % (AUTO) 0 % (0-10); EOSINOPHILS # (AUTO) 0.4 10^3/uL (0.0-0.3); MONOCYTES # (AUTO) 1.2 X 10^3 (0.0-1.0); NEUTROPHILS # (AUTO) 18.8 X 10^3 (1.8-7.8); NEUTROPHILS % (AUTO) 80 % (42-75)
--- NOTE | 2020-02-21 10:20 | ED GI ---
General Chief Complaint: Abdominal/GI Problems Stated Complaint: N/V Nursing Triage Note: PT REPORTS CYCLIC VOMTING FOR 3 DAYS WITH DIARRHEA. Sepsis Screen: No Definite Risk Source of Information: Patient Exam Limitations: No Limitations History of Present Illness Date Seen by Provider: Feb 21, 2020 Time Seen by Provider: 09:40 Initial Comments Presents via EMS w c/o Nausea and vomiting for 3 days. Has had some loose stool, recent Hx of C.Diff and facal transfer @ [facility]. Sees GI, Dr Burris. No fever or chills. Unable to hold down solids of liquids. Non-bloody formed stools.\\ EMS gave Fentanyl- 100mcg , Zofran and Compazine en-route. No vomiting on arrival. Allergies and Home Medications Allergies Coded Allergies: citalopram hydrobromide (Unverified Allergy, Unknown, NAUSEA, 02/15/19) dicyclomine (Verified Allergy, Unknown, nausea and vomiting, 02/15/19) paroxetine (Verified Allergy, Unknown, nausea and vomiting, 02/15/19) prochlorperazine (Verified Allergy, Unknown, muscle pain, 02/15/19) Home Medications Baclofen 10 Mg Tablet, 1 EACH PO QID PRN, (Reported) Diazepam 10 Mg Tablet, 1 EACH PO QID, (Reported) Fentanyl 1 Each Patch.td72, 50 MCG TD Q72H, (Reported) Patient Home Medication List Home Medication List Reviewed: Yes Review of Systems Review of Systems Constitutional: see HPI; No chills, No diaphoresis, No fever; malaise; No weakness EENTM: No Symptoms Reported Respiratory: No Symptoms Reported; Denies Cough, Denies Shortness of Air Cardiovascular: Denies Chest Pain, Denies Edema, Denies Lightheadedness Gastrointestinal: Abdominal Pain, Nausea, Poor Appetite; Denies Rectal Bleeding; Vomiting Genitourinary: No Symptoms Reported Musculoskeletal: no symptoms reported Skin: no symptoms reported Past Ymyxsgz-Fwmvnu-Wghfjp Hx Past Med/Social Hx: Reviewed Nursing Past Med/Soc Hx Patient Social History Alcohol Use: Denies Use Recreational Drug Use: No (PT IS ON MARINOL) Drug of Choice: THC Smoking Status: Never a Smoker 2nd Hand Smoke Exposure: No Recent Foreign Travel: No Contact w/Someone Who Travel: No Recent Infectious Disease Expo: No Recent Hopitalizations: No Physical Abuse: No Sexual Abuse: No Mistreated: No Fear: No Seasonal Allergies Seasonal Allergies: No Past Medical History Surgeries: Yes Gallbladder Respiratory: Yes Asthma Cardiac: No Neurological: No Reproductive Disorders: No Genitourinary: No Gastrointestinal: Yes (irritable bowel; N/V; chronic pancreatitis; sphincter of Oddi dysfunction; ) Pancreatitis, Irritable Bowel Musculoskeletal: Yes Chronic Back Pain Endocrine: No HEENT: No Cancer: No Psychosocial: No Integumentary: No Blood Disorders: No Family Medical History No Pertinent Family Hx Physical Exam Vital Signs Vital Signs - First Documented 02/21/20 09:41 Temp 36.0 Pulse 82 Resp 18 B/P (MAP) 147/87 (107) Pulse Ox 99 O2 Delivery Room Air Capillary Refill : Less Than 3 Seconds Height/Weight/BMI Height: 5'9.00" Weight: 165lbs. oz. 74.027305rb; 26.00 BMI Method:Stated General Appearance: WD/WN, no apparent distress Neck: non-tender, supple Respiratory: chest non-tender, lungs clear, normal breath sounds, no respiratory distress, no accessory muscle use Cardiovascular: regular rate, rhythm, no edema, no gallop Gastrointestinal: soft; No distended, No guarding, No rebound; tenderness (generalized) Back: normal inspection, no CVA tenderness Neurologic/Psychiatric: alert, normal mood/affect, oriented x 3 Skin: normal color, warm/dry Focused Exam Lactate Level 02/21/20 09:40: Lactic Acid Level 4.32*H Lactic Acid Level Laboratory Tests Test 02/21/20 09:40 Lactic Acid Level 4.32 MMOL/L (0.50-2.00) *H Progress/Results/Core Measures Results/Orders Lab Results Laboratory Tests Test 02/21/20 09:40 Range/Units White Blood Count 23.4 H 4.3-11.0 10^3/uL Red Blood Count 4.54 4.35-5.85 10^6/uL Hemoglobin 14.1 13.3-17.7 G/DL Hematocrit 40 40-54 % Mean Corpuscular Volume 89 80-99 FL Mean Corpuscular Hemoglobin 31 25-34 PG Mean Corpuscular Hemoglobin Concent 35 32-36 G/DL Red Cell Distribution Width 12.6 10.0-14.5 % Platelet Count 278 130-400 10^3/uL Mean Platelet Volume 11.0 H 7.4-10.4 FL Neutrophils (%) (Auto) 80 H 42-75 % Lymphocytes (%) (Auto) 13 12-44 % Monocytes (%) (Auto) 5 0-12 % Eosinophils (%) (Auto) 2 0-10 % Basophils (%) (Auto) 0 0-10 % Neutrophils # (Auto) 18.8 H 1.8-7.8 X 10^3 Lymphocytes # (Auto) 3.0 1.0-4.0 X 10^3 Monocytes # (Auto) 1.2 H 0.0-1.0 X 10^3 Eosinophils # (Auto) 0.4 H 0.0-0.3 10^3/uL Basophils # (Auto) 0.1 0.0-0.1 10^3/uL Neutrophils % (Manual) 70 % Lymphocytes % (Manual) 12 % Monocytes % (Manual) 4 % Eosinophils % (Manual) 0 % Basophils % (Manual) 0 % Band Neutrophils 14 % Blood Morphology Comment NORMAL Sodium Level 139 135-145 MMOL/L Potassium Level 3.7 3.6-5.0 MMOL/L Chloride Level 99 98-107 MMOL/L Carbon Dioxide Level 23 21-32 MMOL/L Anion Gap 17 H 5-14 MMOL/L Blood Urea Nitrogen 20 H 7-18 MG/DL Creatinine 1.03 0.60-1.30 MG/DL Estimat Glomerular Filtration Rate > 60 BUN/Creatinine Ratio 19 Glucose Level 173 H 70-105 MG/DL Lactic Acid Level 4.32 *H 0.50-2.00 MMOL/L Calcium Level 8.7 8.5-10.1 MG/DL Corrected Calcium 8.5 8.5-10.1 MG/DL Total Bilirubin 0.4 0.1-1.0 MG/DL Aspartate Amino Transf (AST/SGOT) 36 H 5-34 U/L Alanine Aminotransferase (ALT/SGPT) 29 0-55 U/L Alkaline Phosphatase 90 40-136 U/L Total Protein 6.8 6.4-8.2 GM/DL Albumin 4.3 3.2-4.5 GM/DL Lipase 509 H 8-78 U/L Serum Alcohol < 10 <10 MG/DL My Orders Orders - ALEX BEEBE DO Cbc With Automated Diff (02/21/20 09:32) Comprehensive Metabolic Panel (02/21/20 09:32) Lipase (02/21/20 09:32) Lactic Acid Analyzer (02/21/20 09:32) Alcohol (02/21/20 09:32) Abdomen Flat & Upright/Decub (02/21/20 09:32) Urinalysis (02/21/20 09:32) Lactated Ringers (Lr 1000 Ml Iv Solution (02/21/20 09:45) Fentanyl Injection (Sublimaze Injection (02/21/20 10:00) Ondansetron Injection (Zofran Injectio (02/21/20 10:00) Manual Differential (02/21/20 09:40) Lorazepam Injection (Ativan Injection) (02/21/20 11:15) Famotidine Injection (Pepcid Injection) (02/21/20 11:15) Medications Given in ED Current Medications Medications Dose Ordered Sig/Ladonna Route Start Time Stop Time Status Last Admin Dose Admin Famotidine 20 mg ONCE ONCE IVP 02/21/20 11:15 02/21/20 11:16 DC 02/21/20 11:13 20 MG Fentanyl Citrate 50 mcg ONCE ONCE IVP 02/21/20 10:00 02/21/20 10:01 DC 02/21/20 10:04 50 MCG Lorazepam 1 mg Q8HR PRN IVP 02/21/20 11:15 02/21/20 11:13 1 MG Ondansetron HCl 4 mg ONCE ONCE IVP 02/21/20 10:00 02/21/20 10:01 DC 02/21/20 10:04 4 MG Vital Signs/I&O 02/21/20 09:41 Temp 36.0 Pulse 82 Resp 18 B/P (MAP) 147/87 (107) Pulse Ox 99 O2 Delivery Room Air Blood Pressure Mean: 107 Diagnostic Imaging Diagonstic Imaging: Xray Plain Films/CT/US/NM/MRI: abdomen Comments Date of Exam:02/21/20 ABDOMEN FLAT & UPRIGHT/DECUB INDICATION: Pain FINDINGS: Elevation of the right hemidiaphragm. There are clips at the gallbladder fossa. There is no abnormal fecal loading. No evidence for bowel obstruction. IMPRESSION: No acute appearing abnormality. Dictated on workstation # [id number] Dict: 02/21/20 1004 Trans: 02/21/20 1007 [facility] [id number] Interpreted by: FLAQUITO BOLANOS Electronically signed by: Departure Impression Primary Impression: Nausea and vomiting Qualified Codes: R11.2 - Nausea with vomiting, unspecified Additional Impressions: Abdominal pain Qualified Codes: R10.84 - Generalized abdominal pain Pancreatitis Qualified Codes: K86.1 - Other chronic pancreatitis Disposition: ADMITTED INPATIENT Condition: Stable Admissions Decision to Admit Reason: Admit from ER (General) Time/Decision to Admit Time: 10:30 Transfer Transfer Reason: Patient preference Transfer Progress Notes Patient refuses admission to [facility] [place]. Requests transfer to [facility]. Called transfer line @ 1100 Dr Khushboo Yepez accepts for transfer @ 114 Departure-Patient Inst. Referrals: NO,LOCAL PHYSICIAN (PCP/Family) Primary Care Physician ALEX BEEBE DO Feb 21, 2020 10:19
[2020-02-21 10:41] LABS: ALANINE AMINOTRANSFERASE 29 U/L (0-55); ALKALINE PHOSPHATASE 90 U/L (40-136); BILIRUBIN,TOTAL 0.4 MG/DL (0.1-1.0); BUN/CREATININE RATIO 19; CALCIUM 8.7 MG/DL (8.5-10.1); CARBON DIOXIDE 23 MMOL/L (21-32); CHLORIDE 99 MMOL/L (98-107); CREATININE SERUM 1.03 MG/DL (0.60-1.30); GFR ESTIMATED > 60; GLUCOSE 173 MG/DL (70-105); SODIUM 139 MMOL/L (135-145)
[2020-02-21 10:42] LABS: ALBUMIN 4.3 GM/DL (3.2-4.5); LIPASE 509 U/L (8-78); TOTAL PROTEIN 6.8 GM/DL (6.4-8.2)
[2020-02-21 10:46] LABS: BAND NEUTROPHILS 14 %; BASOPHILS % (MANUAL) 0 %; EOSINOPHILS % (MANUAL) 0 %; LYMPHOCYTES % (MANUAL) 12 %; MONOCYTES % (MANUAL) 4 %; NEUTROPHILS % (MANUAL) 70 %; RBC MORPH NORMAL
[2020-02-21 10:50] LABS: POTASSIUM 3.7 MMOL/L (3.6-5.0)
--- NOTE | 2020-02-21 10:57 | NUR ---
PT REQUESTING ATIVAN BECUASE HE THINKS HE IS HAVING A PANIC ATTACK. DR BEEBE NOTIFIED.
--- NOTE | 2020-02-21 11:01 | NUR ---
PT REQUESTING A GI COCKTAIL.
[2020-02-21] MEDS ORDERED: FAMOTIDINE 20MG/2ML IV (PEPCID) IVP ONE (11:15)
[2020-02-21] MEDS ORDERED: LORazepam INJ 2 MG/ML (ATIVAN) VIAL IVP PRN (11:15)
--- NOTE | 2020-02-21 12:07 | NUR ---
[facility] CALLED A THIS TIME. [facility]U ASSIGNED BED [id number].
[2020-02-21 12:16] VITALS: BP 122/68
[2020-02-21] MEDS ORDERED: diphenhydrAMINE 50 MG/ML INJ (BENADRYL) IVP ONE (12:45)
== END 2020-02-21 12:16 | disposition other institution (70) ==
LOC: EDUNIT# 09:27 → ER FS 09:28
DX: K85.90 Acute pancreatitis without necrosis or infection, unspecified (principal); M54.9 Dorsalgia, unspecified; G89.29 Other chronic pain; Z88.8 Allergy status to other drugs, medicaments and biological substances
CPT/HCPCS: 36415; 74019; 80053; 80320; 83605; 83690; 85007; 85027

== ENCOUNTER 2020-04-22 11:25 | Emergency (ER) | payer MEDICAID ==
--- NOTE | 2020-04-22 11:26 | NUR ---
Patient was settled into room by EMS as 2 RN's in ER busy and unavailable. In person pt report awaiting. Clinical Coordinator was around the desk at time of receiving EMS report.
[2020-04-22] MEDS ORDERED: NS IV 1000 ML 1,000 ML IV SCH (11:45)
[2020-04-22] MEDS ORDERED: PROMETHAZINE INJ 25 MG/ML (PHENERGAN) AMP IVP ONE (11:45)
[2020-04-22] MEDS ORDERED: diphenhydrAMINE 50 MG/ML INJ (BENADRYL) IVP ONE (11:45)
--- NOTE | 2020-04-22 11:50 | NUR ---
Lab obtained by assistance of other staff member.
--- NOTE | 2020-04-22 11:53 | ED General ---
General Stated Complaint: N/V History of Present Illness Date Seen by Provider: Apr 22, 2020 Time Seen by Provider: 11:49 Initial Comments Patient presenting to emergency department for evaluation of abdominal pain nausea and vomiting with diarrhea that he says has been going on all day today. He called the ambulance and was given 50 mics of fentanyl and 4 mg of Zofran with no improvement of his symptoms. He tried taking his home 45 mg morphine 8 mg Zofran and 10 mg Valium but cannot hold any of this down. Emesis is nonblo bea nonbilious and diarrhea is nonbloody as well. He has a history of cyclic vomiting syndrome and follows a [facility] with Dr. wilkinson. Patient's usual operation is to call the ambulance to bring him here and that he gets transferred to [facility] as this has happened and October and February of this year. his calls ahead of time and says that they cannot drive themselves to and expect us to have him transferred to . Patient does not have active vomiting in the room rather he moans quite loudly and yells and makes dry heaving sounds but he never actually vomits rather he spits up his saliva. Allergies and Home Medications Allergies Coded Allergies: citalopram hydrobromide (Unverified Allergy, Unknown, NAUSEA, 02/15/19) dicyclomine (Verified Allergy, Unknown, nausea and vomiting, 02/15/19) paroxetine (Verified Allergy, Unknown, nausea and vomiting, 02/15/19) prochlorperazine (Verified Allergy, Unknown, muscle pain, 02/15/19) Home Medications Baclofen 10 Mg Tablet, 1 EACH PO QID PRN, (Reported) Diazepam 10 Mg Tablet, 1 EACH PO QID, (Reported) Fentanyl 1 Each Patch.td72, 50 MCG TD Q72H, (Reported) Patient Home Medication List Home Medication List Reviewed: Yes Review of Systems Review of Systems Constitutional: no symptoms reported EENTM: no symptoms reported Respiratory: no symptoms reported Cardiovascular: no symptoms reported Gastrointestinal: abdominal pain, diarrhea, nausea, vomiting Musculoskeletal: no symptoms reported Skin: no symptoms reported Psychiatric/Neurological: No Symptoms Reported All Other Systems Reviewed Negative Unless Noted: Yes Past Rcnnbig-Cdtzmb-Lbxkzm Hx Patient Social History Drug of Choice: THC 2nd Hand Smoke Exposure: No Recent Hopitalizations: No Seasonal Allergies Seasonal Allergies: No Past Medical History Surgeries: Yes Gallbladder Respiratory: Yes Asthma Cardiac: No Neurological: No Reproductive Disorders: No Genitourinary: No Gastrointestinal: Yes (irritable bowel; N/V; chronic pancreatitis; sphincter of Oddi dysfunction; ) Pancreatitis, Irritable Bowel Musculoskeletal: Yes Chronic Back Pain Endocrine: No HEENT: No Cancer: No Psychosocial: No Integumentary: No Blood Disorders: No Family Medical History No Pertinent Family Hx Physical Exam Vital Signs Capillary Refill : Height, Weight, BMI Height: 5'9.00" Weight: 165lbs. oz. 74.635442xq; 26.00 BMI Method:Stated General Appearance: Other (dry heaving sounds) HEENT: PERRL/EOMI Neck: Supple Respiratory: Lungs Clear, No Respiratory Distress Cardiovascular: Regular Rate, Rhythm Gastrointestinal: Soft, Tenderness (diffusely, no rebound or guarding) Extremity: Normal Capillary Refill Neurologic/Psychiatric: Alert, Oriented x3 Skin: Warm/Dry Progress/Results/Core Measures Suspected Sepsis SIRS Temperature: Pulse: Respiratory Rate: Laboratory Tests 04/22/20 11:50: White Blood Count 26.5H Blood Pressure / Mean: Laboratory Tests 04/22/20 11:50: Creatinine 0.90, Platelet Count 314, Total Bilirubin 0.9 Results/Orders Lab Results Laboratory Tests Test 04/22/20 11:50 Range/Units White Blood Count 26.5 H 4.3-11.0 10^3/uL Red Blood Count 5.21 4.35-5.85 10^6/uL Hemoglobin 15.9 13.3-17.7 G/DL Hematocrit 45 40-54 % Mean Corpuscular Volume 86 80-99 FL Mean Corpuscular Hemoglobin 31 25-34 PG Mean Corpuscular Hemoglobin Concent 35 32-36 G/DL Red Cell Distribution Width 12.4 10.0-14.5 % Platelet Count 314 130-400 10^3/uL Mean Platelet Volume 10.9 H 7.4-10.4 FL Neutrophils (%) (Auto) 88 H 42-75 % Lymphocytes (%) (Auto) 7 L 12-44 % Monocytes (%) (Auto) 4 0-12 % Eosinophils (%) (Auto) 0 0-10 % Basophils (%) (Auto) 0 0-10 % Neutrophils # (Auto) 23.1 H 1.8-7.8 X 10^3 Lymphocytes # (Auto) 1.9 1.0-4.0 X 10^3 Monocytes # (Auto) 1.0 0.0-1.0 X 10^3 Eosinophils # (Auto) 0.1 0.0-0.3 10^3/uL Basophils # (Auto) 0.1 0.0-0.1 10^3/uL Neutrophils % (Manual) 87 % Lymphocytes % (Manual) 6 % Monocytes % (Manual) 4 % Eosinophils % (Manual) 1 % Basophils % (Manual) 0 % Band Neutrophils 2 % Sodium Level 137 135-145 MMOL/L Potassium Level 4.2 3.6-5.0 MMOL/L Chloride Level 101 98-107 MMOL/L Carbon Dioxide Level 18 L 21-32 MMOL/L Anion Gap 18 H 5-14 MMOL/L Blood Urea Nitrogen 13 7-18 MG/DL Creatinine 0.90 0.60-1.30 MG/DL Estimat Glomerular Filtration Rate > 60 BUN/Creatinine Ratio 14 Glucose Level 228 H 70-105 MG/DL Calcium Level 9.8 8.5-10.1 MG/DL Corrected Calcium 8.5-10.1 MG/DL Magnesium Level 1.5 L 1.6-2.4 MG/DL Total Bilirubin 0.9 0.1-1.0 MG/DL Aspartate Amino Transf (AST/SGOT) 33 5-34 U/L Alanine Aminotransferase (ALT/SGPT) 27 0-55 U/L Alkaline Phosphatase 86 40-136 U/L Total Protein 7.6 6.4-8.2 GM/DL Albumin 4.7 H 3.2-4.5 GM/DL Lipase 16 8-78 U/L My Orders Orders - TALHA SAL DO Comprehensive Metabolic Panel (04/22/20 11:34) Cbc With Automated Diff (04/22/20 11:34) Drug Screen Stat (Urine) (04/22/20 11:34) Ua Culture If Indicated (04/22/20 11:34) Lipase (04/22/20 11:34) Magnesium (04/22/20 11:34) Promethazine Injection (Phenergan Injec (04/22/20 11:45) Ns Iv 1000 Ml (Sodium Chloride 0.9%) (04/22/20 11:45) Diphenhydramine Injection (Benadryl Inje (04/22/20 11:45) Manual Differential (04/22/20 11:50) Lactated Ringers (Lr 1000 Ml Iv Solution (04/22/20 13:00) Haloperidol Injection (Haldol Injectio (04/22/20 13:00) Medications Given in ED Current Medications Medications Dose Ordered Sig/Ladonna Route Start Time Stop Time Status Last Admin Dose Admin Diphenhydramine HCl 50 mg ONCE ONCE IVP 04/22/20 11:45 04/22/20 11:46 DC 04/22/20 12:02 50 MG Haloperidol Lactate 5 mg ONCE ONCE IV 04/22/20 13:00 04/22/20 13:01 DC 04/22/20 13:11 5 MG Promethazine HCl 25 mg ONCE ONCE IVP 04/22/20 11:45 04/22/20 11:46 DC 04/22/20 12:02 25 MG Vital Signs/I&O Capillary Refill : Progress Note : Progress Note From the resources I have available to me and does not appear that opioids are recommended for treatment of cyclic vomiting syndrome, of course I'm not a GI specialist. Benzodiazepines may be of some benefit. I will try Phenergan and Benadryl and if that does not help I will likely try Haldol. Patient given Haldol as his symptoms of pain did not improve but he still did not have any vomiting. I spoke to [facility] at patient's request for transfer and Dr. Angelo from accepted patient. Patient will be transferred in stable condition. Departure Impression Primary Impression: Nausea alone Additional Impressions: Abdominal pain Diarrhea Leukocytosis (leucocytosis) Blood CO2 decreased Disposition: [facility] HOSP Condition: Stable Transfer Transfer Reason: Patient preference Transfer Facility: [facility] Method of Transfer: EMS Departure-Patient Inst. Referrals: NO,LOCAL PHYSICIAN (PCP/Family) Primary Care Physician TALHA SAL DO Apr 22, 2020 11:53
[2020-04-22 11:59] LABS: HEMATOCRIT 45 % (40-54); HEMOGLOBIN 15.9 G/DL (13.3-17.7); MEAN CORPUSCULAR HEMOGLOBIN 31 PG (25-34); MEAN CORPUSCULAR HGB CONC 35 G/DL (32-36); MEAN CORPUSCULAR VOLUME 86 FL (80-99); WHITE BLOOD COUNT 26.5 10^3/uL (4.3-11.0)
[2020-04-22 12:00] LABS: BASOPHILS % (AUTO) 0 % (0-10); EOSINOPHILS % (AUTO) 0 % (0-10); LYMPHOCYTES % (AUTO) 7 % (12-44); MEAN PLATELET VOLUME 10.9 FL (7.4-10.4); MONOCYTES % (AUTO) 4 % (0-12); NEUTROPHILS % (AUTO) 88 % (42-75); PLATELET COUNT 314 10^3/uL (130-400); RED CELL DISTRIBUTION WIDTH 12.4 % (10.0-14.5)
--- NOTE | 2020-04-22 12:00 | NUR ---
This RN introduced self to patient with apology. RN has been busy doing a patient transfer. Reviewed patient's hx for triage and patient is demanding, "I need pain meds." "I hurt so bad." "Having back spasms." Pt had an epidural pain injection reported yesterday and bandaid noted low back. Pt was asked his PCP name and referred to a physician that practices in [place], [place]. Pt states they are tapering his Extended Morphine and he was down to 45 mg dose and he can not hold it down today. Pt denies when asked if he is under direction of Pain Management Physician. Pt denies a pain med contract.
--- NOTE | 2020-04-22 12:00 | NUR ---
Pt denies need of being able to give urine sample. Pt states he has already attempted. Explained the IV fluids being hung should help.
[2020-04-22 12:01] LABS: BASOPHILS # (AUTO) 0.1 10^3/uL (0.0-0.1); EOSINOPHILS # (AUTO) 0.1 10^3/uL (0.0-0.3); LYMPHOCYTES # (AUTO) 1.9 X 10^3 (1.0-4.0); NEUTROPHILS # (AUTO) 23.1 X 10^3 (1.8-7.8)
[2020-04-22 12:18] LABS: BAND NEUTROPHILS 2 %; LYMPHOCYTES % (MANUAL) 6 %; MONOCYTES % (MANUAL) 4 %; NEUTROPHILS % (MANUAL) 87 %
[2020-04-22 12:19] LABS: BASOPHILS % (MANUAL) 0 %; EOSINOPHILS % (MANUAL) 1 %
[2020-04-22 12:25] LABS: ALKALINE PHOSPHATASE 86 U/L (40-136); BILIRUBIN,TOTAL 0.9 MG/DL (0.1-1.0); BUN/CREATININE RATIO 14; CALCIUM 9.8 MG/DL (8.5-10.1); CARBON DIOXIDE 18 MMOL/L (21-32); CHLORIDE 101 MMOL/L (98-107); GFR ESTIMATED > 60; GLUCOSE 228 MG/DL (70-105); MAGNESIUM 1.5 MG/DL (1.6-2.4); POTASSIUM 4.2 MMOL/L (3.6-5.0); SODIUM 137 MMOL/L (135-145)
[2020-04-22 12:26] LABS: ALANINE AMINOTRANSFERASE 27 U/L (0-55); ALBUMIN 4.7 GM/DL (3.2-4.5); LIPASE 16 U/L (8-78); TOTAL PROTEIN 7.6 GM/DL (6.4-8.2)
[2020-04-22] MEDS ORDERED: HALOPERIDOL 5 MG/ML (HALDOL) VIAL IV ONE (13:00)
[2020-04-22] MEDS ORDERED: LACTATED RINGERS 1,000 ML IV SCH (13:00)
--- NOTE | 2020-04-22 13:00 | NUR ---
Review the pain reports with . Pt was re-evaluated in the presence of entering a very quiet room with patient lying on cart and then patient began sobbing/whimpering he is so sick and begins to softly start retching and volume of the effort grows. is listening to patient as RN entered the room of pt resting.
--- NOTE | 2020-04-22 13:11 | NUR ---
Began Haldol 5 mg as slow IV infusion on mini infusor over several minutes as directed for the usage with Pharmacist Nadine Aguillon to clarify the type of Haldol stocked and what a package insert for materials defines for appropriate use. Ok to give IV. Patient is placed on cardiac monitoring
--- NOTE | 2020-04-22 13:20 | NUR ---
Warm blankets x 2 provided. Pt signed consent to transfer. Pt still denies need to void.
--- NOTE | 2020-04-22 13:30 | NUR ---
Patient remains on cot in overflow room on full monitoring.
--- NOTE | 2020-04-22 14:00 | NUR ---
Call the transfer center at [facility] and they state there are no beds open at this time.
--- NOTE | 2020-04-22 14:12 | NUR ---
Pt attempted to get up to bathroom without assist. Staff caught patient at doorway and requesting the need of the urine specimen that has been asked for numerous times. Specimen cup provided.
[2020-04-22 14:28] LABS: BILIRUBIN,URINE NEGATIVE (NEGATIVE); CLARITY,URINE CLEAR; COLOR,URINE YELLOW; GLUCOSE, URINE (UA) NEGATIVE (NEGATIVE); KETONES,URINE 1+ (NEGATIVE); LEUKOCYTE ESTERASE ,URINE NEGATIVE (NEGATIVE); NITRITE,URINE NEGATIVE (NEGATIVE); PH,URINE 7.5 (5-9); PROTEIN,URINE NEGATIVE (NEGATIVE)
[2020-04-22 14:29] LABS: BACTERIA,URINE NEGATIVE /HPF; WBC,URINE 0-2 /HPF
--- NOTE | 2020-04-22 14:30 | NUR ---
Pt removes NIBP and cardiac monitors earlier when he attempted to go into bathroom without assistance. Pt reports he leaving them off as "too tight on my arm." Pt persistantly removing SaO2 monitor.
[2020-04-22 14:33] LABS: BENZODIAZEPINES SCREEN URINE POSITIVE (NEGATIVE); CANNABINOID SCREEN, URINE POSITIVE (NEGATIVE)
[2020-04-22 14:34] LABS: AMPHETAMINE SCREEN, URINE NEGATIVE (NEGATIVE); BARBITURATE SCREEN URINE NEGATIVE (NEGATIVE); COCAINE SCREEN URINE NEGATIVE (NEGATIVE); METHADONE STAT NEGATIVE (NEGATIVE); METHAMPHETAMINE SCREEN URINE S NEGATIVE (NEGATIVE); OPIATE SCREEN URINE POSITIVE (NEGATIVE); OXYCODONE STAT NEGATIVE (NEGATIVE); PROPOXYPHENE STAT NEGATIVE (NEGATIVE); TRICYCLIC ANTIDEPRESSANTS SCRE POSITIVE (NEGATIVE)
--- NOTE | 2020-04-22 14:40 | NUR ---
Dr notified RN he has reviewed the urine test provided by patient and please copy his dictation for transfer with the addenum note.
--- NOTE | 2020-04-22 15:30 | NUR ---
In to pt's room calling out for the nurse. Pt reports he has a "cluster headache" and would like "oxygen applied to make him feel better." Notified and denies need of O2 with adequate SaO2.
--- NOTE | 2020-04-22 16:00 | NUR ---
Pt calls nurse to room as walking past doorway. Pt reports he is feeling like nausea is going to return as he "can not settle down to get comfortable and rest". No vomiting in this ED visit. No retching sounds since Haldol IV administered. At times pt noted with eyes closed. Pt has all monitors removed stating they are "too tight on him."
--- NOTE | 2020-04-22 16:53 | NUR ---
Call from Dariana at Transfer Center at [facility]. Pt room available and ready. Rm CA-11, Rm 126
--- NOTE | 2020-04-22 16:55 | NUR ---
Call to Dr Sanders to report patient called nurse to room and requested Zofran for Nausea. Pt had a small amt emesis in an emesis bag. Only heard one retching sound.
--- NOTE | 2020-04-22 16:57 | NUR ---
Called EMS to request transfer. They report the other truck had went to [place] and they must await them to return to EMS barn.
[2020-04-22] MEDS ORDERED: ONDANSETRON 4 MG/2 ML (SDV) Z0FRAN IVP ONE (17:00)
--- NOTE | 2020-04-22 17:15 | NUR ---
Report to Josephine OLMOS
[2020-04-22 17:20] VITALS: BP 148/81
--- NOTE | 2020-04-22 17:20 | NUR ---
Departing [facility] ER via [facility] at this time. Zofran 4 mg IV at 1712. No current retching or vomiting.
== END 2020-04-22 17:20 | disposition short-term general hospital (02) ==
LOC: ER FS 11:26 → EDUNIT# 11:32 → ER FS 17:20
DX: R11.0 Nausea (principal); D72.829 Elevated white blood cell count, unspecified; R19.7 Diarrhea, unspecified; R79.81 Abnormal blood-gas level; R10.84 Generalized abdominal pain; M54.9 Dorsalgia, unspecified; G89.29 Other chronic pain; Z88.8 Allergy status to other drugs, medicaments and biological substances; Z88.1 Allergy status to other antibiotic agents
CPT/HCPCS: 36415; 80053; 80306; 81000; 83690; 83735; 85007; 85027; 96374; 96375